=== PATIENT | male | born 1940 | race Caucasian/White ===

== ENCOUNTER 2017-06-06 14:58 | Emergency (ER) | payer MEDICARE, OTHER ==
[2017-06-06 15:23] VITALS: BP 134/91
[2017-06-06] MEDS ORDERED: Gelfoam 12-7 ADSORBABL SPONGE* 1 EA SPONGE TOPICAL ONE (16:03)
--- NOTE | 2017-06-06 16:16 | UC ---
Pushpa Salazar Emily, scribed for Mariya Rodriguez MD on 06/06/17 at 1555 . Laceration HPI - HPI Summary HPI Summary: This patient is a 77 year old M presenting to urgent care with a chief complaint of R index finger laceration that occurred at 0900 this morning. 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 Pt reports he was wearing gloves at the time. Pt does not remember specific injury. Pt states when he took off her gloves, was bleeding. Pt washed the laceration with soap and water. Pt reports a slight stinging pain associated with the laceration. Bleeding not alleviated by ice or previous attempt at gluing the laceration closed. Pt is right-handed. Tdap UTD (2009) Pt is on xarelto. - History Of Current Complaint Chief Complaint: UCUpperExtremity Stated Complaint: FINGER LACERATION Time Seen by Provider: 06/06/17 15:36 Hx Obtained From: Patient Laceration Location: Hand - R pointer finger Mechanism Of Injury: Sharp Trauma Onset/Duration: Sudden Onset, Lasting Hours - Allergies/Home Medications Allergies/Adverse Reactions: Allergies Allergy/AdvReac Type Severity Reaction Status Date / Time No Known Allergies Allergy Verified 01/17/15 13:14 Home Medications: Home Medications Canagliflozin (NF) [Invokana (NF)] 06/06/17 [History] PMH/Surg Hx/FS Hx/Imm Hx Previously Healthy: No Endocrine History: Diabetes Cardiovascular History: Hypertension - Surgical History Surgical History: Yes Surgery Procedure, Year, and Place: gallbladder 5-6 yrs ago,prostate cmc. - Family History Known Family History: Positive: Cardiac Disease - Social History Occupation: Retired Lives: With Family Alcohol Use: None Substance Use Type: None Smoking Status (MU): Former Smoker - Immunization History Most Recent Influenza Vaccination: July 2014 Most Recent Tetanus Shot: unknown Most Recent Pneumonia Vaccination: within 5 years Review of Systems Constitutional: Other - Negative fever Skin: Other - Laceration on R index finger Motor: Other - no weakness All Other Systems Reviewed And Are Negative: Yes Physical Exam Triage Information Reviewed: Yes Appearance: Well-Appearing, No Pain Distress, Well-Nourished Vital Signs: Initial Vital Signs Temp 97.8 F 06/06/17 15:17 Pulse 90 06/06/17 15:17 Resp 18 06/06/17 15:17 BP 134/91 10/02/17 15:17 Vital Signs Reviewed: Yes ENT: Positive: Hearing grossly normal Neck: Positive: Supple, Nontender Respiratory: Positive: No respiratory distress Cardiovascular: Positive: Other: - CBT < 2 sec 2+ radial Musculoskeletal Exam: Normal Musculoskeletal: Positive: Other: - + flex/ext MCP, PIP, DIP Neurological Exam: Normal Psychological Exam: Normal Psychological: Positive: Normal Response To Family Skin: Positive: Other - Pt with small <2mm skin avulsion over distal finger, index, dorsum no nail involved Pt with small ooze from wound Laceration Course/Dx - Course/Dx Course Of Treatment: Pt with small skin avulsion with ooze from distal index finger. Wound irrigated with sterile saline and gauze. Mild scrubbing. Wound dried with gauze and covered with skin adhesive dermabond. Following this, covered with gelfoam, 2x2 and tube gauze. No further bleeding. Pt tolerate well. Reviewed with pt wound care. Pt comfortable and in agreement with plan - Differential Dx - Laceration/Wound Provider Diagnoses: skin avulsion on anticoagulants Discharge - Discharge Plan Condition: Stable Disposition: HOME Patient Education Materials: Acute Wound Care (ED) Referrals: Tawanda Gómez MD [Primary Care Provider] - Additional Instructions: - Keep your wound clean and dry for 24 hours. - Then, moisten bandage that is under tape against your skin before removing - If you have any additional concerns, call your doctor or return to the urgent care center The documentation as recorded by the Pushpa sheets Emily accurately reflects the service I personally performed and the decisions made by me, Mariya Rodriguez MD.
== END 2017-06-06 16:24 | disposition home or self-care (01) ==
LOC: UCEAST 14:58
DX: S61.210A Laceration without foreign body of right index finger without damage to nail, initial encounter (principal); W26.0XXA Contact with knife, initial encounter; Y92.9 Unspecified place or not applicable; E11.9 Type 2 diabetes mellitus without complications; I10 Essential (primary) hypertension; Z87.891 Personal history of nicotine dependence
CPT/HCPCS: 99212; A9270-GY; G0463

== ENCOUNTER 2017-08-04 11:16 | Emergency (ER) | payer MEDICARE, BC ==
[2017-08-04 13:27] LABS: Hematocrit 47 % (42-52); Hemoglobin 15.8 g/dl (14.0-18.0); Mean Corpuscular HGB Conc 33 g/dl (31-36); Mean Corpuscular Hemoglobin 28 pg (27-31); Mean Corpuscular Volume 85 fL (80-94); Mean Platelet Volume 8 um3 (7.4-10.4); Red Blood Count 5.56 10^6/ul (4.0-5.4); Red Cell Distribution Width 13 % (10.5-15); White Blood Count 8.1 10^3/ul (3.5-10.8)
--- NOTE | 2017-08-04 13:31 | RAD ---
Indication: Occipital headaches, visual changes. CT of the brain was performed without IV contrast. Ventricular structures are midline. No midline shift is noted. The extra-axial spaces are unremarkable. There is no evidence of intracranial mass or hemorrhage. No other high or low density lesions are identified. Mastoid air cells and paranasal sinuses are otherwise unremarkable. IMPRESSION: No intracranial mass or hemorrhage is noted.
[2017-08-04 13:39] LABS: Albumin 4.1 g/dL (3.2-5.2); C Reactive Protein 2.01 mg/L (< 5.00); Calcium 9.8 mg/dL (8.6-10.3); EGFR African American 132.6 (>60); EGFR Non-African American 103.1 (>60); Potassium 4.3 mmol/L (3.5-5.0); Total Bilirubin 1.6 mg/dL (0.2-1.0); Total Protein 7.1 g/dL (6.4-8.9)
[2017-08-04 13:40] LABS: Troponin I 0.01 ng/mL (<0.04)
[2017-08-04 13:52] LABS: TSH (Thyroid Stimulating Horm) 2.49 mcIU/mL (0.34-5.60)
[2017-08-04] MEDS ORDERED: Iodixanol* (CONTRAST) 320 MG/ML 100 ML SDV IV ONE (14:37)
[2017-08-04 14:52] LABS: Erythrocyte Sed Rate 16 mm/Hr (0-40)
--- NOTE | 2017-08-04 16:10 | RAD ---
INDICATION: Visual changes COMPARISON: Carotid sonogram September 25, 2014 TECHNIQUE: Axial source images were acquired with coronal and sagittal reconstructions. CT angiographic technique was utilized with injection of 80 mL Visipaque 320. FINDINGS: Aortic arch: There are mild atherosclerotic changes of the arch and the great vessels arising from the arch. Right carotid: The common carotid artery is widely patent. There is extensive calcific plaque formation involving the bifurcation limiting evaluation of the origin of the internal carotid artery. There may be a high-grade stenosis and therefore carotid ultrasonography is recommended to assess velocities/flow dynamics and to compare with the earlier carotid sonogram. The remaining extracranial portions of the internal carotid artery, carotid artery at the skull base, carotid siphon, and carotid termination appear normal. Left carotid:The common carotid artery is widely patent. There is extensive ossific plaque formation at the bifurcation with a 50% diameter stenosis. The remaining extracranial portions of the internal carotid artery, carotid artery at the skull base, carotid siphon, and carotid termination appear widely patent. Right middle and anterior cerebral arteries: There are no CT angiographic abnormalities of the middle or anterior cerebral arteries. Left middle and anterior cerebral arteries: There are no CT angiographic abnormalities of the middle or anterior cerebral arteries Right vertebral: The CT angiographic appearance of the vertebral artery is widely patent with mild calcific plaque formation near its origin. Left vertebral: The CT angiographic appearance of the vertebral artery is widely patent with mild calcific plaque formation appears origin. Basilar artery: The basilar artery and basilar tip appear normal. Posterior cerebral arteries: The distal distribution of the right and left posterior cerebral arteries is normal. [place]: The CT angiographic appearance of the [place] is normal. Source images show no evidence of mass or adenopathy within the neck. There are no focal brain parenchymal abnormalities or abnormal areas of enhancement. IMPRESSION: 1. EXTENSIVE RIGHT-SIDED CALCIFIC PLAQUE FORMATION AT THE BIFURCATION LIMITING EVALUATION. SUGGEST FOLLOW-UP CAROTID ULTRASONOGRAPHY. 2. EXTENSIVE CALCIFIC PLAQUE FORMATION AT THE LEFT CAROTID BIFURCATION WITH A 50% DIAMETER STENOSIS. CPT II Codes: 3100F PQRS
--- NOTE | 2017-08-04 17:09 | ED ---
Isac Salazar Benjamin, scribed for Jesus Baca MD on 08/04/17 at 1216 . Throat Pain/Nasal Congestion - HPI Summary HPI Summary: 77yo male c/o having part of his vision covered intermittently with flash spot that he describes as aura for 4 days. The flash spot changes moves to different parts of the visual field and he reports them in both eyes. Each episode lasts about 5-15 seconds. Pt denies any weakness or numbness. Pt has back and neck problems, and the last 4 days, pt has been seeing a doctor for his back and neck issues. Pt also reports discomfort in bilateral jaw and ROLDAN in the past few days and his cervical lymph nodes are bothering him. - History of Current Complaint Chief Complaint: EDNeurologicalDeficit Time Seen by Provider: 08/04/17 11:53 Hx Obtained From: Patient Onset/Duration: Gradual Onset, Lasting Days - 4 days, Still Present Severity: Mild Associated Signs And Symptoms: Positive: Negative - Allergies/Home Medications Allergies/Adverse Reactions: Allergies Allergy/AdvReac Type Severity Reaction Status Date / Time No Known Allergies Allergy Verified 08/04/17 11:19 Home Medications: Home Medications Canagliflozin (NF) [Invokana (NF)] 100 mg PO QAM 08/04/17 [History Confirmed ] Clopidogrel TAB* [Plavix TAB*] 75 mg PO QAM 08/04/17 [History Confirmed 08/04/17 ] Coenzyme Q10 (Ubidecarenone) [Co-Enzyme Q10] 100 mg PO DAILY 08/04/17 [History Confirmed 08/04/17] Epleronone (NF) [Inspra (NF)] 25 mg PO QAM 08/04/17 [History Confirmed 08/04/17] Latanoprost 0.005%* [Xalatan 0.005%*] 1 drop BOTH EYES BEDTIME 08/04/17 [ History Confirmed 08/04/17] Losartan TAB* [Cozaar TAB*] 12.5 mg PO QPM 08/04/17 [History Confirmed 08/04/17] Nystatin (Topical) [Nyamyc] 100,000 unit TOPICAL DAILY PRN 08/04/17 [History Confirmed 08/04/17] Rosuvastatin (NF) [Crestor (NF)] 5 mg PO DAILY 08/04/17 [History Confirmed 08/04] Timolol Maleate (Ophth) [Istalol] 0.5 % LEFT EYE QAM 08/04/17 [History Confirmed 08/04/17] Verapamil SR TAB* [Calan Sr TAB*] 240 mg PO QAM 08/04/17 [History Confirmed ] glipiZIDE TAB.XL* [Glucotrol XL*] 5 mg PO DAILY 08/04/17 [History Confirmed ] metFORMIN* [Glucophage 500 MG TAB *] 1,000 mg PO BID 08/04/17 [History Confirmed 08/04/17] PMH/Surg Hx/FS Hx/Imm Hx Endocrine/Hematology History: Reports: Hx Diabetes Cardiovascular History: Reports: Hx Hypercholesterolemia, Hx Hypertension Denies: Hx Pacemaker/ICD GI History: Reports: Hx Gastroesophageal Reflux Disease History: Reports: Hx Benign Prostatic Hyperplasia Musculoskeletal History: Reports: Hx Arthritis Sensory History: Reports: Hx Hearing Aid - dosen't wear them Denies: Hx Contacts or Glasses Opthamlomology History: Denies: Hx Contacts or Glasses Psychiatric History: Denies: Hx Panic Disorder, Hx Substance Abuse - Surgical History Surgery Procedure, Year, and Place: gallbladder 5-6 yrs ago,prostate cmc. - Immunization History Date of Tetanus Vaccine: unknown Infectious Disease History: No Infectious Disease History: Denies: Traveled Outside the [place] in Last 30 Days - Family History Known Family History: Positive: Cardiac Disease, Other - brain tumors - Social History Alcohol Use: None Substance Use Type: Reports: None Smoking Status (MU): Former Smoker Review of Systems Constitutional: Negative Positive: Other - visual changes ENT: Negative Cardiovascular: Negative Respiratory: Negative Gastrointestinal: Negative Genitourinary: Negative Positive: Arthralgia - neck and back pain; bilateral jaw discomfort and soreness Skin: Negative Positive: Headache Psychological: Normal All Other Systems Reviewed And Are Negative: Yes Physical Exam Triage Information Reviewed: Yes Vital Signs On Initial Exam: Initial Vitals Temp Pulse Resp BP Pulse Ox 96.7 F 84 16 137/91 97 08/04/17 11:21 08/04/17 11:21 08/04/17 11:21 08/04/17 11:21 08/04/17 11:21 Vital Signs Reviewed: Yes - [place] Coma Scale Coma Scale Total: 15 Diagnostics - Vital Signs Vital Signs Temp Pulse Resp BP Pulse Ox 08/04/17 12:07 76 21 97 08/04/17 12:06 169/62 08/04/17 11:21 96.7 F 84 16 137/91 97 - Laboratory Lab Results: Lab Results 08/04/17 08/04/17 08/04/17 Range/Units 12:22 12:22 12:22 WBC 8.1 (3.5-10.8) 10^3/ul RBC 5.56 H (4.0-5.4) 10^6/ul Hgb 15.8 (14.0-18.0) g/dl Hct 47 (42-52) % MCV 85 (80-94) fL MCH 28 (27-31) pg MCHC 33 (31-36) g/dl RDW 13 (10.5-15) % Plt Count 330 (150-450) 10^3/ul MPV 8 (7.4-10.4) um3 Neut % (Auto) 69.2 (38-83) % Lymph % (Auto) 20.5 L (25-47) % [place] % (Auto) 8.5 (1-9) % Eos % (Auto) 0.8 (0-6) % Baso % (Auto) 1.0 (0-2) % Absolute Neuts (auto) 5.6 (1.5-7.7) 10^3/ul Absolute Lymphs (auto) 1.7 (1.0-4.8) 10^3/ul Absolute Monos (auto) 0.7 (0-0.8) 10^3/ul Absolute Eos (auto) 0.1 (0-0.6) 10^3/ul Absolute Basos (auto) 0.1 (0-0.2) 10^3/ul Absolute Nucleated RBC 0.01 10^3/ul Nucleated RBC % 0.2 ESR 16 (0-40) mm/Hr INR (Anticoag Therapy) 1.11 (0.89-1.11) APTT 33.7 (26.0-36.3) seconds Sodium 135 (133-145) mmol/L Potassium 4.3 (3.5-5.0) mmol/L Chloride 101 (101-111) mmol/L Carbon Dioxide 25 (22-32) mmol/L Anion Gap 9 (2-11) mmol/L BUN 20 (6-24) mg/dL Creatinine 0.74 (0.67-1.17) mg/dL Est GFR ( Amer) 132.6 (>60) Est GFR (Non-Af Amer) 103.1 (>60) BUN/Creatinine Ratio 27.0 H (8-20) Glucose 146 H (70-100) mg/dL Calcium 9.8 (8.6-10.3) mg/dL Magnesium 2.0 (1.9-2.7) mg/dL Total Bilirubin 1.60 H (0.2-1.0) mg/dL AST 21 (13-39) U/L ALT 23 (7-52) U/L Alkaline Phosphatase 69 (34-104) U/L Troponin I 0.01 (<0.04) ng/mL C-Reactive Protein 2.01 (< 5.00) mg/L Total Protein 7.1 (6.4-8.9) g/dL Albumin 4.1 (3.2-5.2) g/dL Globulin 3.0 (2-4) g/dL Albumin/Globulin Ratio 1.4 (1-3) TSH 2.49 (0.34-5.60) mcIU/mL Result Diagrams: 08/04/17 12:22 08/04/17 12:22 Lab Statement: Any lab studies that have been ordered have been reviewed, and results considered in the medical decision making process. - CT CT Brain CT Interpretation: No Acute Changes CT Interpretation Completed By: Radiologist - ED physician has reviewed this radiology report and agrees. CTA head/neck CT Interpretation: Positive (See Comments) - IMPRESSION: 1. EXTENSIVE RIGHT- SIDED CALCIFIC PLAQUE FORMATION AT THE BIFURCATION LIMITING EVALUATION. SUGGEST FOLLOW-UP CAROTID ULTRASONOGRAPHY. 2. EXTENSIVE CALCIFIC PLAQUE FORMATION AT THE LEFT CAROTID BIFURCATION WITH A 50% DIAMETER STENOSIS. CT Interpretation Completed By: Radiologist - ED physician has reviewed this radiology report and agrees. - EKG 1222. Cardiac Rate: NL EKG Rhythm: Sinus Rhythm - 73bpm ST Segment: Normal Ectopy: None Re-Evaluation - Re-Evaluation First Eval Re-Evaluation Time: 14:18 Comment: Reviewed pt's CT result, introduced Dr. Dickinson to the pt. Dr. Dickinson is in the room to evaluate the pt. EENT Course/Dx - Course Course Of Treatment: BP noted and advised to follow up with PCP. Allergies noted. Medications reviewed. Consulted Dr. Dickinson (Neuro) at [address] DICKINSON SAW PATIWENT IN THE ED. SEE HIS CONSULTATION. DISCUSSED RESULTS WITH PATIENT AND HIS . THE PLAN IS TO F/U WITH PMD, OPHTHALMOLOGY AND NEUROLOGY. RETURN IF WORSE. NO CRITICAL CARE TIME. - Diagnoses Provider Diagnoses: Vision changes, Ocular migraine, Headache Discharge - Discharge Plan Condition: Stable Disposition: HOME Patient Education Materials: Blurred Vision (ED), Ocular Migraine (ED), Acute Headache (ED) Referrals: Ramon Dickinson MD [Medical Doctor] - Tawanda Gómez MD [Primary Care Provider] - Additional Instructions: FOLLOW UP WITH YOUR PRIMARY CARE DOCTOR AND NEUROLOGY. ASK YOUR PRIMARY CARE DOCTOR TO HELP ARRANGE CAROTID ULTRASONOGRAPHY. CALL NEUROLOGY, DR DICKINSON, FOR FOLLOW UP IN APPROXIMATELY 2 WEEKS. CALL YOUR SPRAY RIG OPERATOR FOR FOLLOW UP. RETURN TO THE EMERGENCY DEPARTMENT FOR ANY WORSENING OF YOUR CONDITION; WEAKNESS , NUMBNESS, VISION CHANGES, PAIN, YOU FEEL ILL OR QUESTIONS OR CONCERNS. The documentation as recorded by the Isac sheets Benjamin accurately reflects the service I personally performed and the decisions made by me, Jesus Baca MD.
[2017-08-04 17:36] VITALS: BP 166/66
--- NOTE | 2017-08-04 20:36 | CONS ---
Cc: Tawanda Gómez MD * CONSULTATION REPORT: DATE OF CONSULT: 08/04/17 PATIENT OF: Dr. Baca. HISTORY OF PRESENT ILLNESS: This is a 77-year-old right-handed man I was asked to see for unusual visual symptoms, his history may go back, chronically he has had migraine headaches since his early 20s. They were severe, throbbing headaches associated with nausea and visual disturbance similar to what he is currently experiencing. His migraine headaches had been gone for 2 or 3 years' time, but since then he has continued to have a couple of times a year visual symptoms similar to what he had with his migraine but without headache. In the past 5 days or so, he has had similar visual symptoms. He describes it as a hard to describe, bright shiny light up to the right and left of his visual field, but not obscuring central vision and only obscuring portion of his peripheral field. He does not describe it as a field cut and it is hard for him to describe. There is no clear scintillations, but he says it is exactly the same as he had when he had his migraines. These last typically minutes and go away. He has had some head pain in the past few days that consists of occasional moderately severe right-sided neck pain that goes frontally. It is not throbbing, it does not feel like his migraines. His blood pressure in the past 3 or 4 days has been mildly elevated compared to what it usually runs, it is in the 130s to 150s over 70s. He is diabetic, but he has not been hypoglycemic or hyperglycemic as tested in the past several days' time. He has not had any history of stroke. He has no numbness or weakness or speech problems with this and no changes in his walking. PAST MEDICAL HISTORY: Include his: 1. Type 2 diabetes. 2. Hypertension. 3. Atrial fibrillation. 4. He also has hyperlipidemia. 5. Migraine. 6. He has had coronary artery disease as well. PAST SURGICAL HISTORY: He has also had a cholecystectomy and a TURP. MEDICATIONS: Include: 1. Glipizide 5 mg a day. 2. Plavix 75 mg a day. 3. Inspira 25 mg a day. 4. Finasteride 5 mg a day. 5. Hydrochlorothiazide 12.5 three times a week. 6. Invokana 100 mg daily. 7. Eye drops. 8. Losartan 25 mg half a pill a day. 9. Metformin 500 mg pills twice a day. 10. Metoprolol 25 twice a day. 11. Rosuvastatin 5 mg a day. 12. Verapamil 240 a day. 13. Xarelto 20 mg at bedtime. 14. He has had 2 drug-eluting stents placed at [facility] in 2013. 15. He is on nitro as needed. FAMILY HISTORY: Noncontributory. SOCIAL HISTORY: He quit smoking 25 years ago with a 20-year history and he is a former significant drinker, but nothing for almost 20 years' time. No recreational drugs. REVIEW OF SYSTEMS: Negative in all 14 spheres other than the HPI. PHYSICAL EXAMINATION: On exam, temperature is 96.7, pulse 66, respirations 17, blood pressure 192/65. He is alert and oriented with normal speech and comprehension. Cranial nerves II through XII are intact. Fundi showed sharp discs. He has no visual field deficits or visual symptoms at this time. Motor exam revealed normal tone, strength, coordination in aibren-[id number]. His sensation is intact to light touch. Reflexes were 1 and equal, downgoing toes. Neck: Supple. Chest: Clear. Cardiovascular: Regular rate and rhythm. Abdomen: Soft with positive bowel sounds. Of note, he had no orthodox tenderness on exam. DIAGNOSTIC STUDIES/LAB DATA: I reviewed his CT scan, which was normal. His EKG , he was in sinus rhythm with a left anterior fascicular block at this point. Labs include normal CBC. Sed rate is pending. INR 1.11. PTT 33.7. Normal CMP other than glucose 146, total bili of 1.6, TSH 2.49, C-reactive protein was 2. IMPRESSION: Discussed this case with Dr. Baca that his visual symptoms sounded migrainous, and then the history I got from him of a significant migraine with identical visual symptoms makes me think that this is migrainous phenomena. It could be just that he has had such migrainous phenomena without headache in the past few years' time, this may be a recurrence without any particular reason. However, a few reasons come to mind; he has somewhat elevated blood pressure in the past several days' time and the elevated blood pressure could drive something like this. It could also be that he was stressed and therefore his blood pressure was elevated and that is also causing migraines. Another possibility is he has some neck pain and neck pain can trigger migraines in a predisposed person. Finally, he has had carotid disease in the past. It is possible if he has more significant stenosis, it could be possibly triggering such symptoms, so we are going to get a CTA on him. I discussed with Dr. Baca to make sure he is not becoming hypoglycemic, which could trigger migraine symptoms in a susceptible individual. Thank you for sharing his case. [id number]/[facility] #: [id number] [place]
== END 2017-08-04 17:35 | disposition home or self-care (01) ==
LOC: ED 11:16
DX: G43.909 Migraine, unspecified, not intractable, without status migrainosus (principal); M54.9 Dorsalgia, unspecified; R51 Headache; M54.2 Cervicalgia; Z87.891 Personal history of nicotine dependence; H53.149 Visual discomfort, unspecified
CPT/HCPCS: 36415; 70450; 70496; 70498; 80053; 83735; 84443; 84484; 85025; 85610; 85652; 85730; 86140; 93005; 99283; Q9967

== ENCOUNTER 2017-10-17 13:42 | Emergency (ER) | payer MEDICARE, BC ==
--- NOTE | 2017-10-17 17:40 | ED ---
Lower Extremity - HPI Summary HPI Summary: 77 year old male presents to ED with complaints of bilateral "funny feeling" in his feet that began 4-5 days ago. States he only feels the "tingling/burning" when he is sitting or laying, not when he is up walking around and not paying attention to it. States it is the worst in his toes. Denies any swelling, discoloration, erythema, warmth or other symptoms. States he has type II diabetes for the past 2 years that is not the always very well controlled. Patient denies any other complaints and no pain. PMHx significant for DM, HTN, Aortic stenosis, and ACS with 2 stents. Has not tried any medication. No prolonged bed rest, long distance travel. No recent trauma or injury. - History of Current Complaint Chief Complaint: EDDiabeticProb Stated Complaint: LEG PAIN Time Seen by Provider: 10/17/17 16:58 Hx Obtained From: Patient Mechanism Of Injury: Other - none Onset of Pain: Days Onset/Duration: Still Present Severity Currently: None Pain Intensity: 0 Pain Scale Used: 0-10 Numeric Timing: Intermittent Location: Is Discrete @ - bilateral feet/toes Associated Signs And Symptoms: Positive: Negative Aggravating Factor(s): Other - when sitting still rather than walking Alleviating Factor(s): Other - walking - Allergies/Home Medications Allergies/Adverse Reactions: Allergies Allergy/AdvReac Type Severity Reaction Status Date / Time No Known Allergies Allergy Verified 08/04/17 11:19 PMH/Surg Hx/FS Hx/Imm Hx Endocrine/Hematology History: Reports: Hx Diabetes Cardiovascular History: Reports: Hx Angina, Hx Coronary Artery Disease - stent, Hx Hypercholesterolemia, Hx Hypertension Denies: Hx Pacemaker/ICD, Hx Valvular Heart Disease Respiratory History: Denies: Hx Asthma, Hx Chronic Obstructive Pulmonary Disease (COPD) GI History: Reports: Hx Gastroesophageal Reflux Disease History: Reports: Hx Benign Prostatic Hyperplasia Musculoskeletal History: Reports: Hx Arthritis Sensory History: Reports: Hx Hearing Aid - dosen't wear them Denies: Hx Contacts or Glasses Opthamlomology History: Denies: Hx Contacts or Glasses Psychiatric History: Denies: Hx Panic Disorder, Hx Substance Abuse - Surgical History Surgery Procedure, Year, and Place: gallbladder 5-6 yrs ago,prostate [facility]. - Immunization History Date of Tetanus Vaccine: unknown Infectious Disease History: No Infectious Disease History: Denies: Traveled Outside the [place] in Last 30 Days - Family History Known Family History: Positive: Cardiac Disease, Other - brain tumors - Social History Alcohol Use: None Substance Use Type: Reports: None Smoking Status (MU): Unknown if Ever Smoked Type: Cigarettes Have You Smoked in the Last Year: No Review of Systems Constitutional: Negative Cardiovascular: Negative Respiratory: Negative Positive: Paresthesia - bilateral toes/feet All Other Systems Reviewed And Are Negative: Yes Physical Exam Triage Information Reviewed: Yes Vital Signs On Initial Exam: Initial Vitals Temp Pulse Resp BP Pulse Ox 96.9 F 85 16 156/50 95 10/17/17 13:45 10/17/17 13:45 10/17/17 13:45 10/17/17 13:45 10/17/17 13:45 Vital Signs Reviewed: Yes Appearance: Positive: Well-Appearing, No Pain Distress, Well-Nourished Skin: Positive: Warm, Skin Color Reflects Adequate Perfusion, Dry, Other - normal lower extremity skin, not shiny. Negative: Cyanosis @, Erythema @ Head/Face: Positive: Normal Head/Face Inspection Respiratory/Lung Sounds: Positive: Clear to Auscultation, Breath Sounds Present. Negative: Rales, Rhonchi, Wheezes Cardiovascular: Positive: Normal, RRR, Pulses are Symmetrical in both Upper and Lower Extremities - diminished bilateral pedal pulses 1+, Murmur - grade III systolic. Negative: Rub Musculoskeletal: Positive: Normal, Strength/ROM Intact. Negative: Limited @, Interruption @, Pain @ Neurological: Positive: Normal, Sensory/Motor Intact - diminshed sensation bilateral dorsal side of feet when tested sharp/dull, Alert, Oriented to Person Place, Time, CN Intact II-III, Reflexes Intact, NV Bundle Intact Distally - diminshed dorsal feet bilateral as noted above Diagnostics - Vital Signs Vital Signs Temp Pulse Resp BP Pulse Ox 10/17/17 15:00 97.6 F 73 16 144/59 96 10/17/17 13:45 96.9 F 85 16 156/50 95 - Laboratory Lab Results: Lab Results 10/17/17 Range/Units 16:42 POC Glucose (mg/dL) 95 (70-100) mg/dL Lab Statement: Any lab studies that have been ordered have been reviewed, and results considered in the medical decision making process. Lower Extremity Course/Dx - Course Course Of Treatment: due to patients complaints, history and physical exam findings appears to be suffering from diabetic neuropathy. no concern for artertial compromise at this time. encouraged follow up with pcp and biztalk developer. is in no pain. strict glucose control. today's was 95. aware of worsening signs and symptoms to watch out for adn return if occur. no other concerns at this time. did not start on medication due to minimal symptoms and beginning stages without being able to follow up with patient. discuss outpatient with pcp and biztalk developer. patient agrees and understands plan. - Diagnoses Differential Diagnosis/HQI/PQRI: Positive: Other - PAD, diabetic neuropathy, paresthesia Provider Diagnoses: Diabetic neuropathy, Paresthesia of both feet Discharge - Discharge Plan Condition: Stable Disposition: HOME Patient Education Materials: Diabetic Peripheral Neuropathy (ED), Paresthesia ( ED) Referrals: Tawanda Gómez MD [Primary Care Provider] - Vandana Orourke DPM [Doctor of Podiatric Medicine] - Randy Henderson DPM [Doctor of Podiatric Medicine] - Additional Instructions: Please follow up with your primary care provider for further evaluation and treatment. Make an appointment to see a biztalk developer for your symptoms. Optimal glucose control. Recommend elevation rather than sitting and having legs hang over edge of chair as this may worsen symptoms. Any new or worsening symptoms please seek medical attention promptly, as we discussed (increased pain, swelling, redness, warmth).
[2017-10-17 18:01] VITALS: BP 138/52
== END 2017-10-17 18:00 | disposition home or self-care (01) ==
LOC: ED 13:42
DX: E11.40 Type 2 diabetes mellitus with diabetic neuropathy, unspecified (principal)
CPT/HCPCS: 99282

== ENCOUNTER 2018-04-28 02:19 | Emergency (ER) | payer MEDICARE, BC ==
[2018-04-28] MEDS ORDERED: NS 0.9% 1000 ML* 1,000 ML IV ONE (02:25)
--- OUTSIDE RECORDS SUMMARY | 2018-04-28 02:40 | XMS REPORT ---
:1940 External Reference #:[id number] [facility] [employer] Address [address] [place] [address] Phone [phone] Care Team Providers Name Role Phone Tawanda Gómez M.D. Primary Care Physician Unavailable Payers Type Date Identification Numbers Payment Provider Subscriber Medicare Primary Policy Number: [id number] Medicare - [employer] PayID: [id number] [address] [place] [address] Commercial Policy Number: [id number] [place] [employer] PayID: [id number] [address] [place] [address] Problems Date Description Provider Status Onset: Essential hypertension Active Onset: 03/19/2015 Type 2 diabetes mellitus Meena Brock O.D. Active Note: s Onset: Arthritis Active Onset: Large prostate Active Onset: 03/19/2015 Primary open angle glaucoma Meena Brock O.D. Active Onset: 03/19/2015 Nuclear senile cataract Meena Brock O.D. Active Onset: 03/19/2015 Mild / Early Stage Glaucoma Meena Brock O.D. Active Onset: 03/19/2015 High Risk Open Angle Glaucoma Meena Brock O.D. Active Onset: 09/19/2015 Combined form of senile cataract Meena Brock O.D. Active Onset: 02/11/2016 Pseudoexfoliation glaucoma Meena Brock O.D. 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 /2017 in both [place], eyes O.D. every morning Latanoprost 09/19 Active Solution 0.005% 1 drop H40.11x1 Meena Szymanski. /2015 both [place], eyes O.D. every night Clopidogrel Bisulfate Active Tablets 75mg Gaby, MD Jono Glipizide ER Active Tablets 5mg take 1 Unknown /0000 ER 24HR tablet once daily Crestor Active Tablets 10mg Gaby, MD Jono Finasteride Active Tablets 5mg take 1 Unknown 0000 tablet by mouth once daily Metformin HCL ER Active Tablets 500mg Shallish, /0000 ER 24HR Tawanda M.D. Metoprolol Succinate Active Tablets 25mg Unknown ER /0000 ER 24HR Verapamil HCL ER Active Tablets 240mg Shallish, /0000 ER Tawanda M.D. Xarelto Active Tablets 20mg Gaby, MD Jono Nitrostat Active Tablets 0.4mg Shallish, /0000 Sub Tawanda M.D. Coq-10 Active Capsules 50mg Unknown /0000 Hydrochlorothiazide Active Tablets 25mg Unknown /0000 Eplerenone Active Tablets 25mg take 1 Unknown /0000 tablet by mouth once daily Losartan Potassium Active Tablets 25mg Unknown /0000 Nyamyc Active Powder [id number] Shallish, /0000 t/GM Tawanda M.D. Lorazepam Active Tablets 0.5mg Shallish, /0000 Tawanda M.D. Gabapentin 00/00 Active Capsules 100mg take 1 Unknown /0000 capsule by mouth four times a day Vitamin B12 Active Tablets 100mcg Unknown /0000 Vitamin D3 Active Capsules 2000Unit Unknown /0000 Timolol Maleate 02/17 Hx Solution 0.5% 10ml One drop Meena J. left eye [place], - twice O.D. 02/22 per day Istalol 02/16 Hx Solution 0.5% 5ml one drop H40.1131 Meena J. in Left [place], - Eye O.D. 02/17 morning Latanoprost 03/18 Hx Solution 0.005% 1 drop Menea J. left eye [place], - every O.D. 10/12 Istalol Hx Solution 0.5% 15ml one drop Meena J. in left [place], - eye O.D. 10/30 morning Results Description No Information Procedures Date CPT Code Description Status 09/26/2017 55462 Est Patient Intermediate Exam Completed 02/16/2017 46620 Scanning Computerized Ophthalmic Diagnostic Imag Completed Posterior Seg On 02/16/2017 05982 Visual Field Exam Extended Completed 02/16/2017 82287 Est Patient Comprehensive Exam Completed 08/13/2016 84334 Est Patient Intermediate Exam Completed 02/11/2016 69950 Scanning Computerized Ophthalmic Diagnostic Imag Completed Posterior Seg On 02/11/2016 22520 Est Patient Comprehensive Exam Completed 10/13/2015 55302 Visual Field Exam Extended Completed 10/13/2015 60164 Est Patient Intermediate Exam Completed 09/19/2015 97367 Est Patient Intermediate Exam Completed 03/19/2015 50251 Est Patient Comprehensive Exam Completed 03/19/2015 80694 Determination Of Refractive State Completed 03/19/2015 05380 Scanning Computerized Ophthalmic Diagnostic Imag Completed Posterior Seg On 09/18/2014 50436 Visual Field Exam Extended Completed 04/15/2014 04360 Est Patient Comprehensive Exam Completed 12/13/2013 38609 Scanning Computerized Ophthalmic Diagnostic Imag Completed Posterior Seg On 12/13/2013 66802 Est Patient Intermediate Exam Completed 04/16/2013 68833 Visual Field Exam Extended Completed 04/16/2013 42675 Est Patient Comprehensive Exam Completed 08/21/2012 03094 Est Patient Intermediate Exam Completed 03/29/2012 25802 Est Patient Intermediate Exam Completed 03/29/2012 88968 Visual Field Exam Extended Completed 12/29/2011 00471 Scanning Computerized Ophthalmic Diagnostic Imag Completed Posterior Seg On 12/29/2011 83543 Est Patient Comprehensive Exam Completed 06/21/2011 05522 Est Patient Comprehensive Exam Completed 12/18/2010 06011 Scanning Computerized Ophthalmic Diagnostic Imag Completed Posterior Seg On 12/18/2010 90728 Visual Field Exam Extended Completed 12/18/2010 78684 Est Patient Comprehensive Exam Completed 08/17/2010 09060 Determination Of Refractive State Completed 08/17/2010 28994 Est Patient Intermediate Exam Completed 12/15/2009 65818 Visual Field Exam Extended Completed 12/12/2009 11415 Scanning Laser W/Interp And Report Completed 12/12/2009 88011 Est Patient Comprehensive Exam Completed 12/12/2009 94379 Pachymetry Completed 10/16/2008 66662 Determination Of Refractive State Completed 10/16/2008 67161 Est Patient Comprehensive Exam Completed 02/24/2007 45140 Determination Of Refractive State Completed 02/24/2007 23275 Est Patient Comprehensive Exam Completed 09/13/2005 04380 Determination Of Refractive State Completed 09/13/2005 49090 New Patient Comprehensive Exam Completed Encounters Type Date Location Provider CPT E/M Dx Office Visit 10/31/2017 Timothy Borges MD, Meena Brock, 22037 H40.1131 10:10a pc O.D. Office Visit 03/24/2017 Timothy Borges MD, Meena Brock, 77377 H40.1131 9:45a pc O.D. H40.1411 H25.813 E11.9 Office Visit 09/18/2014 10:10a Timothy Borges MD, Meena Brock, 08090 365.01 pc O.D. Office Visit 09/14/2013 2:30p Timothy Borges MD, Meena Brock, 24495 365.11 pc O.D. 365.71 Office Visit 12/15/2012 9:00a Timothy Borges MD, Meena Brock, 48357 365.11 pc O.D. 365.71 Office Visit 09/04/2012 2:10p Timothy Borges MD, Meena Brock, 87136 365.71 pc O.D. Office Visit 04/17/2010 8:40a Timothy Borges MD, Meena Brock, 02255 365.04 pc O.D. Office Visit 01/14/2010 9:00a Timothy Borges MD, Meena Brock, 36950 365.04 pc O.D. Office Visit 12/15/2009 8:50a Timothy Borges MD, Meena Brock, 39598 365.01 pc O.D. Plan of Care 03/31/2018 - Meena Brock O.D.H40.1131 Primary open-angle glaucoma, bilateral, mild stageComments:Smoking can increase the risk of developing or worsening any eye related disease, as well as affect your overall health. If you are a smoker, we strongly recommend that you quit.If you are not a smoker, we strongly recommend that you do not start. Your glaucoma is stable at this time.Your eye pressure is within an acceptable range, and your testing does not show any Glaucoma related changes at thistime. Please continue your treatment.Follow up:6 Month Follow Up IOP Check At your next visit, we are not planning to dilate your eyes. However, if you have any changes in your vision or new symptoms, there are certain situations that require us to dilate your eyes. If Dr. Brock requests any additional testing, that may require extra time. If you have any questions before your next appointment, please call our office at .H25.13 Age-related nuclear cataract, bilateralComments: You have been diagnosed with cataracts. If you are happy with your vision as it is now, then we willsee you at your next scheduled appointment. If you feel like your vision is getting worse before your scheduled appointment, please call Maylin Jackson at [phone].E11.9 Type 2 diabetes mellitus without complicationsComments:You have diabetes. I do not detect any changes in both of your retinas from diabetes at this time. Proper control of your diabetes is important for the health of your eyes. Changes in your eyes from diabetes can happen without symptoms, so it is important that you have your eyes examined.
--- OUTSIDE RECORDS SUMMARY | 2018-04-28 02:41 | XMS REPORT ---
:1940 External Reference #:[id number] Author Organization [facility] Address [address] [place] [address] [place] [address] Phone [phone] Care Team Providers Name Role Phone Tawanda Gómez MD Primary Care Physician Unavailable Payers Type Date Identification Numbers Payment Provider Subscriber Medicare Primary Policy Number: [id number] Medicare [employer] PayID: [id number] [address] [place] [address] Medigap Part B Policy Number: [id number] [facility] [employer] Number: [id number] [address] PayID: [id number] [place] [address] Problems Date Description Provider Status Onset: 07/10/2013 Sciatica Jerardo Anderson M.D. Active Onset: 01/17/2018 Low back pain Saida Pak MD Active Onset: 01/17/2018 Lumbosacral spondylosis without Saida Pak MD Active myelopathy Family History Date Family Member(s) Problem(s) Comments Father FM Father of DC at age 86 Mother mother at age 66 during open heart surgery Onset: (2013) Siblings 2 1 brother had 4 stents at age of 70 (still living) age 74 2013. 1 brother alive/.well age 70 2013 Social History Type Date Description Comments Marital Status Lives With Occupation Retired worked for [employer] . exposed to anesthetics for fish and creasote application to house. asbestosis exposure at [place] in 1959's. ETOH Use Denies alcohol use Smoking 08/14/2014 Patient is a former stopped approx s smoker Recreational Drug Use Denies Drug Use Daily Caffeine Consumes on average 2 cups of regular coffee per day Daily Caffeine Ice tea 2 14 oz glasses Exercise Type/Frequency Does not exercise Due to leg numbness Allergies, Adverse Reactions, Alerts Date Description Reaction Status Severity Comments 07/10/2013 NKDA active Medications Medication Date Status Form Strength Qnty SIG Indications Ordering Provider Inspra 05/25 Active Tablets 25mg 90tab 1 by mouth I10 Jono s every day Jorge Griffin M.D. Hydrochlorothiazide 06/19 Active Tablets 25mg 30tab 1/2 by Jono s mouth 2 F. times a Gaby week Jaun Metoprolol 02/17 Active Tablets 25mg 180ta 1 tab by Jono Succinate /2014 ER 24HR bs mouth F. twice a Guicho, Jaun Xarelto 02/17 Active Tablets 20mg 90tab 1 by mouth Jono s every day Jorge Griffin M.D. Crestor 12/25 Active Tablets 10mg 12tab 1/2 tab by Jono s mouth F. daily Jaun Griffin Glipizide 08/14 Active Tablets 5mg 180ta 1 by mouth Jono bs daily Jorge Griffin M.D. Verapamil HCL ER Active Caps ER 240mg 30cap 1 po qd Unknown 24HR s Metformin HCL ER Active Tablets 500mg 90tab 1 tabs by Shallish, ER 24HR s mouth MD Tawanda twice daily Aleve Active Capsules 220mg 60cap 1 by mouth Unknown s twice a day as needed Latanoprost Active Solution 0.005% 1 drop in Unknown / both eyes every at bedtime Nitrostat Active Tablets 0.4mg prn Unknown Sub Finasteride Active Tablets 5mg 1 by mouth Unknown /0000 daily Co Q-10 Active Capsules 100mg 1 by mouth Unknown / every day Clopidogrel Active Tablets 75mg 90tab 1 by mouth Jono Bisulfate / s every day Jorge Griffin M.D. Losartan Potassium Active Tablets 25mg 1 by mouth Unknown / every day Nyamyc Powder Active as needed Unknown / (topical) Istalol Active Solution 0.5% 1 gtt both Unknown /0000 eyes am Gabapentin Active Capsules 100mg 1 po qam, Unknown /0000 1 po a12 noon, 2 po q pm Escitalopram Active Tablets 10mg 1 by mouth Unknown Oxalate every day Lorazepam Active Tablets 0.5mg 1 po q hs Unknown / prn Vitamin B12 Active Tablets 1000mcg 1 by mouth Unknown / ER every day Vitamin D-3 Active Capsules 2000Iu 1 by mouth Unknown every day Vitamin B 12 Active injection Unknown /0000 q month (Done PMD 02/07/2018) Nitroglycerin Active Tablets 0.4mg 1 sl Unknown Sub q5mins x3 as needed for chest pain Proair HFA Active Aerosol 108(90Bas 2 puffs by Unknown / e) mouth mcg/Act every 4 hours as needed (rare use) Co Q 10 Active Capsules 100mg 1 by mouth Unknown every day Inspra 06/19 Hx Tablets 25mg 30tab 1 by mouth I10 s every day F. - user, 06/19 M.D. Metoprolol 12/12 Hx Tablets 25mg 200ta 2 po qam, Jono Succinate ER 24HR bs 1 po qpm F. - (ER 02/16) user, 02/17 M.D. Crestor 09/25 Hx Tablets 5mg 30tab 1 by mouth s every day . - user, 12/25.D. Atorvastatin 09/19 Hx Tablets 10mg 1 by mouth Jono Calcium every day . - user, 09/24.D. Keflex 08/27 Hx Capsules 500mg 20cap 1 by mouth 729.5 s four times F. - a day Mauser, 09/10.D. Metoprolol 08/14 Hx Tablets 25mg 240ta 2 by mouth Jono Succinate ER ER 24HR bs in the in F. - the Mauser, 12/12 morning M.D. and 1 tab in the at night Lisinopril 08/14 Hx Tablets 5mg 100ta 1/2 tab by Jono bs mouth Jorge Griffin, 02/16 M.D. Hydrochlorothiazide 08/14 Hx Tablets 25mg 100ta 08/14/14 Jono bs hold Jorge Griffin, 12/11.D Atorvastatin Hx Tablets 40mg 90tab 1 by mouth Jono Calcium /0000 s every day Jorge Griffin, 09/19.D Lisinopril Hx Tablets 10mg 90tab 2 po qd Shallish, /0000 s MD Tawanda - 08/14 Lumigan Hx Solution 0.01% 3vial 1 gtt left Shallish, /0000 s eye qhs MD Tawanda - 08/26 Hydrochlorothiazide Hx Tablets 25mg 90tab 1 by mouth Jono /0000 s every day Jorge Griffin, 08/14.D Aspirin Hx Tablets 81mg 1 po qd Shallish, /0000 MD Tawanda - 02/17 Multivitamins Hx Capsules 30cap 1 capsule Shallish, /0000 s daily MD Tawanda - 05/24 Hydrocodone/Acetami 00 Hx Tablets 5-325mg 60tab 1-2 po qid Shallish , nophen /0000 s prn pain MD Tawanda - 09/10 Multi Complete Hx Capsules daily Unknown /0000 - 05/29 Invokana Hx Tablets 100mg 1 by mouth Unknown /0000 every day - before 02/14 Vital Signs Date Vital Result Comment 03/29/2018 Height 70 inches 5'10" Weight 180.00 lb W/ Shoes On Heart Rate 76 /min BP Systolic Sitting 130 mmHg Lue Reg Cuff BP Diastolic Sitting 62 mmHg Lue Reg Cuff BMI (Body Mass Index) 25.8 kg/m2 Ejection Fraction >70% ECHO 02/07/18 01/18/2018 Height 70 inches 5'10" Weight 182.00 lb w/shoes Heart Rate 80 /min BP Systolic Sitting 170 mmHg L/A Reg Cuff BP Diastolic Sitting 76 mmHg L/A Reg Cuff BP Systolic Standing 131 mmHg la repeat sitting BP Diastolic Standing 62 mmHg la repeat sitting BMI (Body Mass Index) 26.1 kg/m2 Ejection Fraction 65-70% echo 08/16/2017 01/17/2018 Height 70 inches 5'10" Weight 192.00 lb BP Systolic Sitting 158 mmHg BP Diastolic Sitting 70 mmHg Pain Level 7 BMI (Body Mass Index) 27.5 kg/m2 10/05/2017 Height 70 inches 5'10" Weight 192.00 lb Heart Rate 64 /min BP Systolic Sitting 180 mmHg LA< reg BP Diastolic Sitting 82 mmHg LA< reg BP Systolic Standing 144 mmHg la repeat sitting BP Diastolic Standing 86 mmHg la repeat sitting BMI (Body Mass Index) 27.5 kg/m2 Ejection Fraction 65%-70% echo 08/16/17 08/22/2017 Height 70 inches 5'10" Weight 194.00 lb Heart Rate 76 /min BP Systolic Sitting 140 mmHg BP Diastolic Sitting 60 mmHg BMI (Body Mass Index) 27.8 kg/m2 Ejection Fraction 65-70% 06/03/2017 Height 70 inches 5'10" Weight 193.00 lb w/ boots Heart Rate 64 /min reg BP Systolic Sitting 130 mmHg Lue, reg cuff BP Diastolic Sitting 66 mmHg Lue, reg cuff Respiratory Rate 16 /min BMI (Body Mass Index) 27.7 kg/m2 Ejection Fraction 65-70% as of 06/201612/14/2016 Height 70 inches 5'10" Weight 195.00 lb Heart Rate 84 /min BP Systolic Sitting 148 mmHg LA reg cuff BP Diastolic Sitting 72 mmHg LA reg cuff BP Systolic Standing 130 mmHg LA reg cuff BP Diastolic Standing 62 mmHg LA reg cuff BMI (Body Mass Index) 28.0 kg/m2 Ejection Fraction 55% - 60% stress test 06/30/16 11/09/2016 Height 70 inches 5'10" Weight 193.00 lb with shoes Heart Rate 86 /min BP Systolic Sitting 156 mmHg LA reg cuff BP Diastolic Sitting 70 mmHg LA reg cuff BMI (Body Mass Index) 27.7 kg/m2 Ejection Fraction 55% - 60% stress echo 06/30/16 06/21/2016 Height 70 inches 5'10" Weight 210.75 lb with shoes Heart Rate 86 /min BP Systolic Sitting 156 mmHg LA lrg cuff BP Diastolic Sitting 82 mmHg LA lrg cuff BMI (Body Mass Index) 30.2 kg/m2 Ejection Fraction 65%-70% echo 06/11/16 05/25/2016 Height 70 inches 5'10" Weight 214.25 lb w/shoes Heart Rate 62 /min BP Systolic Sitting 142 mmHg LA reg cuff BP Diastolic Sitting 80 mmHg LA reg cuff BMI (Body Mass Index) 30.7 kg/m2 Ejection Fraction 55% Stress Echo 09/17/15 08/13/2015 Height 70 inches 5'10" Weight 222.75 lb w/shoes Heart Rate 76 /min BP Systolic Sitting 146 mmHg LA lg cuff BP Diastolic Sitting 64 mmHg LA lg cuff BMI (Body Mass Index) 32.0 kg/m2 Ejection Fraction 60-65 echo 03/31/15 06/19/2015 Height 70 inches 5'10" Weight 223.00 lb w/shoes Heart Rate 80 /min BP Systolic Sitting 150 mmHg Ra reg cuff BP Diastolic Sitting 78 mmHg Ra reg cuff BMI (Body Mass Index) 32.0 kg/m2 Ejection Fraction 60-65 echo 03/31/15 05/07/2015 Height 70 inches 5'10" Weight 223.00 lb w/shoes Heart Rate 80 /min BP Systolic Sitting 164 mmHg LA reg cuff BP Diastolic Sitting 72 mmHg LA reg cuff BMI (Body Mass Index) 32.0 kg/m2 Ejection Fraction 60-65 echo 03/31/15 04/09/2015 Height 70 inches 5'10" Weight 223.00 lb Heart Rate 88 /min BP Systolic Sitting 158 mmHg left arm, reg cuff BP Diastolic Sitting 78 mmHg left arm, reg cuff BMI (Body Mass Index) 32.0 kg/m2 Ejection Fraction 60-65% 03/31/15 02/17/2015 Height 70 inches 5'10" Weight 220.00 lb Heart Rate 76 /min BP Systolic Sitting 176 mmHg LA, reg BP Diastolic Sitting 78 mmHg LA, reg BMI (Body Mass Index) 31.6 kg/m2 Ejection Fraction 60%-65% 01/08/15 01/22/2015 Height 70 inches 5'10" Weight 220.25 lb w/ shoes Heart Rate 74 /min BP Systolic Sitting 160 mmHg LA, reg BP Diastolic Sitting 78 mmHg LA, reg BMI (Body Mass Index) 31.6 kg/m2 Ejection Fraction 65-70% 07/02/14 echo 12/12/2014 Height 70 inches 5'10" Weight 218.75 lb w/shoes Heart Rate 70 /min BP Systolic Sitting 142 mmHg LA reg cuff BP Diastolic Sitting 70 mmHg LA reg cuff Respiratory Rate 12 /min BMI (Body Mass Index) 31.4 kg/m2 09/11/2014 Height 70 inches 5'10" Weight 214.00 lb Heart Rate 78 /min BP Systolic 170 mmHg LA reg BP Diastolic 62 mmHg LA reg BP Systolic Sitting 141 mmHg repeat la BP Diastolic Sitting 64 mmHg repeat la BMI (Body Mass Index) 30.7 kg/m2 08/27/2014 Height 70 inches 5'10" Weight 208.00 lb Heart Rate 80 /min BP Systolic Sitting 160 mmHg LA, reg BP Diastolic Sitting 68 mmHg LA, reg BMI (Body Mass Index) 29.8 kg/m2 08/20/2014 Height 70 inches 5'10" Heart Rate 72 /min BP Systolic 138 mmHg LA reg BP Diastolic 72 mmHg LA reg 08/20/2014 Height 70 inches 5'10" Heart Rate 72 /min BP Systolic 138 mmHg BP Diastolic 72 mmHg 08/14/2014 Height 70 inches 5'10" Weight 2134.25 lb Heart Rate 80 /min BP Systolic Sitting 142 mmHg LA, reg BP Diastolic Sitting 72 mmHg LA, reg BP Systolic Standing 136 mmHg repeat la sitting BP Diastolic Standing 80 mmHg repeat la sitting BMI (Body Mass Index) 306.2 kg/m2 07/10/2013 Height 70 inches 5'10" Weight 221.00 lb BP Systolic 138 mmHg BP Diastolic 64 mmHg Pain Level 0 BMI (Body Mass Index) 31.7 kg/m2 Results Test Date Test Result H/L Range Note Laboratory test finding 03/01/2018 Point of Care Glucose 167 mg/dL High 70 -100 1 Lipid Panel - [facility] 01/18/2018 Creatine Kinase(CK) 83 U/L 10-223 2 Comp Metabolic Panel 01/18/2018 Sodium 137 mmol/L Low 139-145 Potassium 5.1 mmol/L High 3.5-5.0 Chloride 102 mmol/L 101-111 Co2 Carbon Dioxide 31 mmol/L 22-32 Anion Gap 4 mmol/L 2-11 Glucose 157 mg/dL High 70-100 Blood Urea Nitrogen 20 mg/dL 6-24 Creatinine 0.76 mg/dL 0.67-1.17 BUN/Creatinine Ratio 26.3 High 8-20 Calcium 9.8 mg/dL 8.6-10.3 Total Protein 6.9 g/dL 6.4-8.9 Albumin 4.3 g/dL 3.2-5.2 Globulin 2.6 g/dL 2-4 Albumin/Globulin Ratio 1.7 1-3 Total Bilirubin 2.20 mg/dL High 0.2-1.0 Alkaline Phosphatase 60 U/L 34-104 Alt 20 U/L 7-52 Ast 19 U/L 13-39 Egfr Non- 100.0 >60 Egfr 128.6 >60 3 Lipid Profile (Trig/Chol/HDL) 01/18/2018 Triglycerides 159 mg/dL 4 Cholesterol 143 mg/dL 5 HDL Cholesterol 51.2 mg/dL 6 LDL Cholesterol 60 mg/dL 7 CBC Auto Diff 01/18/2018 White Blood Count 8.6 10^3/uL 3.5-10.8 Red Blood Count 5.68 10^6/uL High 4.0-5.4 Hemoglobin 16.5 g/dL 14.0-18.0 Hematocrit 49 % 42-52 Mean Corpuscular Volume 86 fL 80-94 Mean Corpuscular Hemoglobin 29 pg 27-31 Mean Corpuscular HGB Conc 34 g/dL 31-36 Red Cell Distribution Width 13 % 10.5-15 Platelet Count 270 10^3/uL 150-450 Mean Platelet Volume 7.7 um3 7.4-10.4 Abs Neutrophils 6.1 10^3/uL 1.5-7.7 Abs Lymphocytes 1.5 10^3/uL 1.0-4.8 Abs Monocytes 0.8 10^3/uL 0-0.8 Abs Eosinophils 0.1 10^3/uL 0-0.6 Abs Basophils 0.1 10^3/uL 0-0.2 Abs Nucleated RBC 0 10^3/uL Granulocyte % 71.2 % 38-83 Lymphocyte % 17.7 % Low 25-47 Monocyte % 9.2 % High 0-7 Eosinophil % 0.8 % 0-6 Basophil % 1.1 % 0-2 Nucleated Red Blood Cells % 0.1 Laboratory test finding 01/18/2018 Troponin-I (TnI) 0.01 ng/mL <0.04 8 Basic Metabolic Panel 12/29/2016 Sodium 138 mmol/L 133-145 Potassium 4.9 mmol/L 3.5-5.0 Chloride 103 mmol/L 101-111 Co2 Carbon Dioxide 28 mmol/L 22-32 Anion Gap 7 mmol/L 2-11 Glucose 138 mg/dL High 70-100 Blood Urea Nitrogen 22 mg/dL 6-24 Creatinine 0.77 mg/dL 0.67-1.17 BUN/Creatinine Ratio 28.6 High 8-20 Calcium 9.7 mg/dL 8.6-10.3 Egfr Non- 98.8 >60 Egfr 127.0 >60 9 Basic Metabolic Panel 08/24/2016 Sodium 135 mmol/L 133-145 Potassium 4.4 mmol/L 3.5-5.0 Chloride 100 mmol/L Low 101-111 Co2 Carbon Dioxide 27 mmol/L 22-32 Anion Gap 8 mmol/L 2-11 Glucose 250 mg/dL High 70-100 Blood Urea Nitrogen 18 mg/dL 6-24 Creatinine 0.81 mg/dL 0.67-1.17 BUN/Creatinine Ratio 22.2 High 8-20 Calcium 9.3 mg/dL 8.6-10.3 Egfr Non- 93.2 >60 Egfr 119.8 >60 10 Basic Metabolic Panel 06/24/2016 Sodium 136 mmol/L 133-145 Potassium 5.0 mmol/L 3.5-5.0 Chloride 99 mmol/L Low 101-111 Co2 Carbon Dioxide 29 mmol/L 22-32 Anion Gap 8 mmol/L 2-11 Glucose 154 mg/dL High 70-100 Blood Urea Nitrogen 26 mg/dL High 6-24 Creatinine 0.74 mg/dL 0.67-1.17 BUN/Creatinine Ratio 35.1 High 8-20 Calcium 9.7 mg/dL 8.6-10.3 Egfr Non- 103.4 >60 Egfr 133.0 >60 11 Laboratory test finding 02/16/2015 Lactic Acid 1.6 mmol/L 0.5-2.2 Inr/Protime 02/16/2015 Inr 0.88 0.78-1.07 Laboratory test finding 02/16/2015 Partial Thrombo Time 33.0 seconds 26.0 -36.3 PTT B-Type Natriuretic Peptide BNP 33 pg/mL 12 CBC Auto Diff 02/16/2015 White Blood Count 8.5 10^3/uL 4.8-10.8 Red Blood Count 5.46 10^6/uL High 4.0-5.4 Hemoglobin 15.6 g/dL 14.0-18.0 Hematocrit 47 % 42-52 Mean Corpuscular Volume 87 fL 80-94 Mean Corpuscular Hemoglobin 29 pg 27-31 Mean Corpuscular HGB Conc 33 g/dL 31-36 Red Cell Distribution Width 13 % 10.5-15 Platelet Count 266 10^3/uL 150-450 Mean Platelet Volume 8 um3 7.4-10.4 Abs Neutrophils 5.4 10^3/uL 1.5-7.7 Abs Lymphocytes 2.2 10^3/uL 1.0-4.8 Abs Monocytes 0.7 10^3/uL 0-0.8 Abs Eosinophils 0.2 10^3/uL 0-0.6 Abs Basophils 0.1 10^3/uL 0-0.2 Abs Nucleated RBC 0.01 10^3/uL Granulocyte % 62.9 % 38-83 Lymphocyte % 25.3 % 25-47 Monocyte % 8.5 % 1-9 Eosinophil % 2.4 % 0-6 Basophil % 0.9 % 0-2 Nucleated Red Blood Cells % 0.1 Comp Metabolic Panel 02/16/2015 Sodium 137 mmol/L 133-145 Potassium 4.1 mmol/L 3.5-5.0 Chloride 105 mmol/L 101-111 Co2 Carbon Dioxide 24 mmol/L 22-32 Anion Gap 8 mmol/L 2-11 Glucose 183 mg/dL High 70-100 Blood Urea Nitrogen 20 mg/dL 6-24 Creatinine 0.73 mg/dL 0.67-1.17 BUN/Creatinine Ratio 27.4 High 8-20 Calcium 9.1 mg/dL 8.6-10.3 Total Protein 6.9 g/dL 6.4-8.9 Albumin 4.0 g/dL 3.2-5.2 Globulin 2.9 g/dL 2-4 Albumin/Globulin Ratio 1.4 1-3 Total Bilirubin 1.10 mg/dL High 0.2-1.0 Alkaline Phosphatase 69 U/L 34-104 Alt 22 U/L 7-52 Ast 19 U/L 13-39 Egfr Non- 105.6 >60 Egfr 135.8 >60 13 Laboratory test finding 02/16/2015 Magnesium 1.9 mg/dL 1.9-2.7 14 Troponin-I (TnI) 0.01 ng/mL <0.03 15 TSH (Thyroid Stim Horm) 2.68 ?IU/mL 0.34-5.60 Lipid Panel - [facility] 09/25/2014 Creatine Kinase 53 U/L 10-223 Comp Metabolic Panel 09/25/2014 Sodium 138 mmol/L 133-145 Potassium 4.4 mmol/L 3.5-5.0 Chloride 104 mmol/L 101-111 Co2 Carbon Dioxide 30 mmol/L 22-32 Anion Gap 4 mmol/L 2-11 Glucose 138 mg/dL High 70-100 Blood Urea Nitrogen 17 mg/dL 6-24 Creatinine 0.71 mg/dL 0.67-1.17 BUN/Creatinine Ratio 23.9 High 8-20 Calcium 9.2 mg/dL 8.6-10.3 Total Protein 6.6 g/dL 6.4-8.9 Albumin 4.1 g/dL 3.2-5.2 Globulin 2.5 g/dL 2-4 Albumin/Globulin Ratio 1.6 1-3 Total Bilirubin 1.50 mg/dL High 0.2-1.0 Alkaline Phosphatase 75 U/L 34-104 Alt 19 U/L 7-52 Ast 17 U/L 13-39 Egfr Non- 109.1 >60 Egfr 140.3 >60 16 Lipid Profile (Trig/Chol/HDL) 09/25/2014 Triglycerides 100 mg/dL 17 Cholesterol 116 mg/dL 18 HDL Cholesterol 45.5 mg/dL 19 LDL Cholesterol 51 mg/dL 20 CBC Auto Diff 09/25/2014 White Blood Count 7.9 10^3/uL 4.8-10.8 Red Blood Count 5.16 10^6/uL 4.0-5.4 Hemoglobin 14.8 g/dL 14.0-18.0 Hematocrit 45 % 42-52 Mean Corpuscular Volume 88 fL 80-94 Mean Corpuscular Hemoglobin 29 pg 27-31 Mean Corpuscular HGB Conc 33 g/dL 31-36 Red Cell Distribution Width 13 % 10.5-15 Platelet Count 269 10^3/uL 150-450 Mean Platelet Volume 9 um3 7.4-10.4 Abs Neutrophils 5.5 10^3/uL 1.5-7.7 Abs Lymphocytes 1.4 10^3/uL 1.0-4.8 Abs Monocytes 0.7 10^3/uL 0-0.8 Abs Eosinophils 0.1 10^3/uL 0-0.6 Abs Basophils 0.1 10^3/uL 0-0.2 Abs Nucleated RBC 0 10^3/uL Granulocyte % 70.6 % 38-83 Lymphocyte % 17.7 % Low 25-47 Monocyte % 8.8 % 1-9 Eosinophil % 1.8 % 0-6 Basophil % 1.1 % 0-2 Nucleated Red Blood Cells % 0 Order 08/21/2014 Holter Monitor <pending> CBC Auto Diff 08/21/2014 White Blood Count 9.3 10^3/uL 4.8-10.8 Red Blood Count 5.43 10^6/uL High 4.0-5.4 Hemoglobin 15.7 g/dL 14.0-18.0 Hematocrit 48 % 42-52 Mean Corpuscular Volume 89 fL 80-94 Mean Corpuscular Hemoglobin 29 pg 27-31 Mean Corpuscular HGB Conc 33 g/dL 31-36 Red Cell Distribution Width 13 % 10.5-15 Platelet Count 275 10^3/uL 150-450 Mean Platelet Volume 9 um3 7.4-10.4 Abs Neutrophils 6.2 10^3/uL 1.5-7.7 Abs Lymphocytes 2.0 10^3/uL 1.0-4.8 Abs Monocytes 0.8 10^3/uL 0-0.8 Abs Eosinophils 0.2 10^3/uL 0-0.6 Abs Basophils 0.1 10^3/uL 0-0.2 Abs Nucleated RBC 0.01 10^3/uL Granulocyte % 67.2 % 38-83 Lymphocyte % 21.4 % Low 25-47 Monocyte % 8.5 % 1-9 Eosinophil % 2.0 % 0-6 Basophil % 0.9 % 0-2 Nucleated Red Blood Cells % 0.1 Laboratory test finding 08/21/2014 Troponin I 0.00 ng/mL <0.03 21 Comp Metabolic Panel 08/21/2014 Sodium 138 mmol/L 133-145 Potassium 4.1 mmol/L 3.5-5.0 Chloride 105 mmol/L 101-111 Co2 Carbon Dioxide 26 mmol/L 22-32 Anion Gap 7 mmol/L 2-11 Glucose 165 mg/dL High 70-100 Blood Urea Nitrogen 28 mg/dL High 6-24 Creatinine 0.79 mg/dL 0.67-1.17 BUN/Creatinine Ratio 35.4 High 8-20 Calcium 9.0 mg/dL 8.6-10.3 Total Protein 7.0 g/dL 6.4-8.9 Albumin 4.2 g/dL 3.2-5.2 Globulin 2.8 g/dL 2-4 Albumin/Globulin Ratio 1.5 1-3 Total Bilirubin 0.70 mg/dL 0.2-1.0 Alkaline Phosphatase 64 U/L 34-104 Alt 22 U/L 7-52 Ast 18 U/L 13-39 Egfr Non- 96.4 >60 Egfr 124.0 >60 22 1 Senior Product Manager: [id number] 2 2 WEEKS NON-FASTING W/ LOWER DOSE HCTZ CC:PMD 3 Because ethnic data is not always readily available, this report includes an eGFR for both -Americans and non- Americans. The National Kidney Disease Education Program (NKDEP) does not endorse the use of the MDRD equation for patients that are not between the ages of 18 and 70, are , have extremes of body size, muscle mass, or nutritional status, or are non- or non-. According to the National Kidney Foundation, irrespective of diagnosis, the stage of the disease is based on the level of kidney function: Stage Description GFR(mL/min/1.73 m(2)) 1 Kidney damage with normal or decreased GFR 90 2 Kidney damage with mild decrease in GFR 60-89 3 Moderate decrease in GFR 30-59 4 Severe decrease in GFR 15-29 5 Kidney failure <15 (or dialysis) 4 Desirable: <150 Borderline High: 150-199 High: 200-499 Very High: >500 5 Desirable: <200 Borderline High: 200-239 High: >239 6 Low: <40 Desirable: 40-60 High: >60 7 Desirable: <100 Near Optimal: 100-129 Borderline High: 130-159 High: 160-189 Very High: >189 8 2 WEEKS NON-FASTING W/ LOWER DOSE HCTZ CC:PMD 9 Because ethnic data is not always readily available, this report includes an eGFR for both -Americans and non- Americans. The National Kidney Disease Education Program (NKDEP) does not endorse the use of the MDRD equation for patients that are not between the ages of 18 and 70, are , have extremes of body size, muscle mass, or nutritional status, or are non- or non-. According to the National Kidney Foundation, irrespective of diagnosis, the stage of the disease is based on the level of kidney function: Stage Description GFR(mL/min/1.73 m(2)) 1 Kidney damage with normal or decreased GFR 90 2 Kidney damage with mild decrease in GFR 60-89 3 Moderate decrease in GFR 30-59 4 Severe decrease in GFR 15-29 5 Kidney failure <15 (or dialysis) 10 Because ethnic data is not always readily available, this report includes an eGFR for both -Americans and non- Americans. The National Kidney Disease Education Program (NKDEP) does not endorse the use of the MDRD equation for patients that are not between the ages of 18 and 70, are , have extremes of body size, muscle mass, or nutritional status, or are non- or non-. According to the National Kidney Foundation, irrespective of diagnosis, the stage of the disease is based on the level of kidney function: Stage Description GFR(mL/min/1.73 m(2)) 1 Kidney damage with normal or decreased GFR 90 2 Kidney damage with mild decrease in GFR 60-89 3 Moderate decrease in GFR 30-59 4 Severe decrease in GFR 15-29 5 Kidney failure <15 (or dialysis) 11 Because ethnic data is not always readily available, this report includes an eGFR for both -Americans and non- Americans. The National Kidney Disease Education Program (NKDEP) does not endorse the use of the MDRD equation for patients that are not between the ages of 18 and 70, are , have extremes of body size, muscle mass, or nutritional status, or are non- or non-. According to the National Kidney Foundation, irrespective of diagnosis, the stage of the disease is based on the level of kidney function: Stage Description GFR(mL/min/1.73 m(2)) 1 Kidney damage with normal or decreased GFR 90 2 Kidney damage with mild decrease in GFR 60-89 3 Moderate decrease in GFR 30-59 4 Severe decrease in GFR 15-29 5 Kidney failure <15 (or dialysis) 12 >100 to <200 pg/mL: likely compensated congestive heart failure (CHF) 200 to 400 pg/mL: likely moderate CHF >400 pg/mL: likely moderate to severe CHF 13 Because ethnic data is not always readily available, this report includes an eGFR for both -Americans and non- Americans. The National Kidney Disease Education Program (NKDEP) does not endorse the use of the MDRD equation for patients that are not between the ages of 18 and 70, are , have extremes of body size, muscle mass, or nutritional status, or are non- or non-. According to the National Kidney Foundation, irrespective of diagnosis, the stage of the disease is based on the level of kidney function: Stage Description GFR(mL/min/1.73 m(2)) 1 Kidney damage with normal or decreased GFR 90 2 Kidney damage with mild decrease in GFR 60-89 3 Moderate decrease in GFR 30-59 4 Severe decrease in GFR 15-29 5 Kidney failure <15 (or dialysis) 14 [MG] affected by ICTERUS 15 Reference Range and Interpretation: TnI (ng/mL) Interpretation Less Than 0.03 ng/mL Not supportive of diagnosis of DC 0.03 - 0.50 ng/mL Indeterminate: suggest serial studies if clinically indicated. Greater than 0.5 ng/mL Consistent with diagnosis of DC 16 Because ethnic data is not always readily available, this report includes an eGFR for both -Americans and non- Americans. The National Kidney Disease Education Program (NKDEP) does not endorse the use of the MDRD equation for patients that are not between the ages of 18 and 70, are , have extremes of body size, muscle mass, or nutritional status, or are non- or non-. According to the National Kidney Foundation, irrespective of diagnosis, the stage of the disease is based on the level of kidney function: Stage Description GFR(mL/min/1.73 m(2)) 1 Kidney damage with normal or decreased GFR 90 2 Kidney damage with mild decrease in GFR 60-89 3 Moderate decrease in GFR 30-59 4 Severe decrease in GFR 15-29 5 Kidney failure <15 (or dialysis) 17 Desirable <150 Borderline high 150-199 High 200-499 Very High >500 18 Desirable <200 Borderline high 200-239 High >239 19 Low <40 Desirable: 40-60 High: >60 20 Desirable <100 Near Optimal 100-129 Borderline high 130-159 High 160-189 Very High >189 21 Reference Range and Interpretation: TnI (ng/mL) Interpretation Less Than 0.03 ng/mL Not supportive of diagnosis of DC 0.03 - 0.50 ng/mL Indeterminate: suggest serial studies if clinically indicated. Greater than 0.5 ng/mL Consistent with diagnosis of DC 22 Because ethnic data is not always readily available, this report includes an eGFR for both -Americans and non- Americans. The National Kidney Disease Education Program (NKDEP) does not endorse the use of the MDRD equation for patients that are not between the ages of 18 and 70, are , have extremes of body size, muscle mass, or nutritional status, or are non- or non-. According to the National Kidney Foundation, irrespective of diagnosis, the stage of the disease is based on the level of kidney function: Stage Description GFR(mL/min/1.73 m(2)) 1 Kidney damage with normal or decreased GFR 90 2 Kidney damage with mild decrease in GFR 60-89 3 Moderate decrease in GFR 30-59 4 Severe decrease in GFR 15-29 5 Kidney failure <15 (or dialysis) Procedures Date CPT Code Description Status 03/24/2018 82195 Biopsy Skin Lesion Single Completed 02/24/2018 52839 Nerve Conduction 05-06 Studies Completed 02/24/2018 25262 Needle Electromyography Each Extremity W/Related Completed Paraspinal Areas 02/16/2018 13274 Holter Monitor Review (24 hr)dr review & interp only Completed 02/13/2018 85378 ECG Monitor/Recording W/Visual Superimposition Scanning Completed 02/07/2018 18302 ECHO Transthoracic, Real-Time 2D With Doppler And Color Completed Flow 02/07/2018 06664 ECHO Transthoracic, Real-Time 2D With Doppler And Color Completed Flow 01/18/2018 85896 EKG Tracing & Interpretation Completed 10/05/2017 23226 EKG Tracing & Interpretation Completed 08/26/2017 36315 Stress Test Supervsn W/Out I/R Completed 08/26/2017 16366 Treadmill Interp/Report Only Completed 08/16/2017 70637 ECHO Transthoracic, Real-Time 2D With Doppler And Color Completed Flow 06/03/2017 47987 EKG Tracing & Interpretation Completed 11/09/2016 16888 EKG Tracing & Interpretation Completed 06/30/2016 32526 ECHO Stress Test Incl Perf Contiuous ekg Monitoring Completed W/Phys Superv 06/11/2016 87095 ECHO Transthoracic, Real-Time 2D With Doppler And Color Completed Flow 05/25/2016 38490 EKG Tracing & Interpretation Completed 09/17/2015 72826 ECHO Stress Test Incl Perf Contiuous ekg Monitoring Completed W/Phys Superv 09/17/2015 58771 ECHO Stress Test Incl Perf Contiuous ekg Monitoring Completed W/Phys Superv 08/13/2015 02106 EKG Tracing & Interpretation Completed 06/20/2015 83891 EKG Tracing & Interpretation Completed 05/07/2015 50145 EKG Tracing & Interpretation Completed 04/09/2015 97429 EKG Tracing & Interpretation Completed 03/31/2015 17967 ECHO Transthoracic, Real-Time 2D With Doppler And Color Completed Flow 03/20/2015 20164 Holter Monitor Review (24 hr)dr review & interp only Completed 03/20/2015 45341 ECG Monitor/Recording W/Visual Superimposition Scanning Completed 03/19/2015 75968 Holter Monitor Review (24 hr)dr review & interp only Completed 03/19/2015 29537 ECG Monitor/Recording W/Visual Superimposition Scanning Completed 02/17/2015 46721 EKG Tracing & Interpretation Completed 01/28/2015 48752 ECHO Transthoracic, Real-Time 2D With Doppler And Color Completed Flow 12/12/2014 29870 EKG Tracing & Interpretation Completed 09/11/2014 25379 EKG Tracing & Interpretation Completed 08/27/2014 04430 EKG Tracing & Interpretation Completed 08/20/2014 94187 Holter Monitor Review (24 hr)dr review & interp only Completed 08/20/2014 39806 ECG Monitor/Recording W/Visual Superimposition Scanning Completed 08/20/2014 11733 EKG Tracing & Interpretation Completed 08/20/2014 78516 EKG Tracing & Interpretation Completed 08/14/2014 01022 EKG Tracing & Interpretation Completed 07/02/2014 53586 ECHO Transthoracic, Real-Time 2D With Doppler And Color Completed Flow 07/24/2010 66167 EKG, Interpretation Only Completed Encounters Type Date Location Provider CPT E/M Dx Office Visit 03/29/2018 [facility] Domenica Hernandez, N.P. 25342 I35.0 9:30a [employer] I25.10 I73.9 R00.2 Office Visit 03/24/2018 10:50a [facility] [place] [address] L20.84 L98.9 Office Visit 01/18/2018 8:30a [facility] Jono Griffin M.D. 15989 I35.0 I73.9 I25.10 E11.9 R07.9 R00.2 Office Visit 01/17/2018 1:30p [facility] 84248 M54.5 Of Corrie Pak MD M47.26 M48.061 Office Visit 10/05/2017 11:40a [facility] Jono Griffin M.D. 96550 R07.9 I35.0 I73.9 I25.10 E11.9 I34.2 Office Visit 08/22/2017 10:30a [facility] LEEANN Brower 86277ZUB I35.0 I73.9 I25.10 E11.9 Office Visit 08/04/2017 11:32a [facility] Ramon Dickinson, 49511 G43.109 MD I10 Office Visit 06/03/2017 2:40p [facility] Jono Griffin M.D. 50613 I10 R42 I25.10 I35.0 R07.9 I49.5 R94.31 Office Visit 12/14/2016 9:00a [facility] LEEANN Brower 51675 I10 R42 Office Visit 11/09/2016 3:20p [facility] Jono Griffin 25201 I25.10 Jaun I35.0 I10 R42 Office Visit 06/21/2016 10:30a [facility] LEEANN Brower 79412PMB I35.0 I25.10 I10 Office Visit 05/25/2016 3:40p [facility] Jono Griffin M.D. 99790 I35.0 E11.9 I10 I25.10 Office Visit 08/13/2015 2:00p [facility] Jono Griffin 26825 R94.31 MHari E11.9 I10 I25.10 Office Visit 06/19/2015 10:00a [facility] LEEANN Brower 62713 I10 I73.9 M54.30 M79.606 E78.5 I25.10 Office Visit 05/07/2015 8:30a [facility] LEEANN Brower 60960 427.31 401.9 250.00 443.9 414.01 424.1 Office Visit 04/09/2015 8:40a [facility] Jono Griffin M.D. 88290 424.1 414.01 427.31 401.9 Office Visit 02/17/2015 10:40a [facility] Jono Griffin M.D. 01170 424.1 414.01 250.00 443.9 786.50 307.49 427.31 Office Visit 02/16/2015 8:11a [facility], Sue Leach N.P. 82528 427.31 Hospitalists 414.00 401.9 Office Visit 01/22/2015 10:30a [facility] LEEANN Brower 02880 424.1 272.4 414.01 729.5 443.9 Office Visit 12/12/2014 1:20p [facility] Jono Griffin M.D. 36065 424.1 272.4 250.00 440.8 Office Visit 09/11/2014 3:40p [facility] Jono Griffin M.D. 56106 272.4 424.1 786.50 250.00 440.8 414.01 Office Visit 08/27/2014 12:30p [facility] LEEANN Brower 93606 414.0 272.4 786.50 424.1 729.5 Office Visit 08/21/2014 1:03p [facility], 06019 786.50 Assoc, Hospitalists Jaun 786.50 250.00 250.00 401.9 272.4 272.4 Office Visit 08/20/2014 9:00a [facility] Jono Griffin 20567 786.50 MHari 401.9 786.05 424.1 Office Visit 08/14/2014 9:00a [facility] Jono Griffin M.D. 71095 401.9 785.2 786.50 724.02 250.00 785.9 780.4 Office Visit 07/10/2013 1:20p [facility] Jerardo Anderson, 71466 724.3 Of Corrie Zamorano Office Visit 10/18/2012 2:00p [facility] Jerardo StephonCalderon Anderson, 88944 724.02 Of Corrie Zamorano 781.0 Plan of Care Future Appointment(s):06/13/2018 10:20 am - Jnoo Griffin M.D. at [facility]04/19/2018 11:30 am - Saida Pak MD at [facility]03/29/2018 - Domenica Hernandez N.P.I35.0 Nonrheumatic aortic (valve ) stenosisFollow up:06/2019 OV Gaby as scheduled.I25.10 Athscl heart disease of [place] coronary artery w/o ang pctrsRecommendations:Increase Crestor to 1/2 tab daily.I73.9 Peripheral vascular disease, ijpdmyohzlwT48.2 Palpitations
[2018-04-28 02:58] LABS: ABS Basophils 0.1 10^3/ul (0-0.2); ABS Eosinophils 0 10^3/ul (0-0.6); ABS Lymphocytes 0.4 10^3/ul (1.0-4.8); ABS Monocytes 1.1 10^3/ul (0-0.8); ABS Neutrophils 12.1 10^3/ul (1.5-7.7); ABS Nucleated RBC 0 10^3/ul; Eosinophil % 0.2 % (0-6); Hematocrit 26 % (42-52); Hemoglobin 8.3 g/dl (14.0-18.0); Lymphocyte % 3.1 % (25-47); Mean Corpuscular HGB Conc 32 g/dl (31-36); Mean Corpuscular Hemoglobin 28 pg (27-31); Mean Corpuscular Volume 88 fL (80-94); Mean Platelet Volume 8.9 um3 (7.4-10.4); Nucleated Red Blood Cells % 0.1; Platelet Count 288 10^3/ul (150-450); Red Cell Distribution Width 14 % (10.5-15); White Blood Count 13.8 10^3/ul (3.5-10.8)
--- NOTE | 2018-04-28 02:58 | ED ---
Shortness of Breath - HPI Summary HPI Summary: Pt is a 78 year old male presenting to the ED BIBA with a chief complaint of weakness. Pt has a fresh sternotomy scar from CABG surgery on 04/10 in [place], he had a pegging tube placed the other day that is still present. His SOB was particularly bad today, has no current SOB, but complains of orthopnea. Pt also complains of ulcers and hemorrhoids. Pt fell on his way home from the hospital the other day. - History of Current Complaint Chief Complaint: EDWeakness Time Seen by Provider: 04/28/18 02:25 Hx Obtained From: Patient Onset/Duration: Sudden Onset, Lasting Days Current Severity: Mild Dyspnea At: Orthopena Aggrevating Factors: Movement Alleviating Factors: Upright Position - Allergy/Home Medications Allergies/Adverse Reactions: Allergies Allergy/AdvReac Type Severity Reaction Status Date / Time No Known Allergies Allergy Verified 01/02/18 15:31 Home Medications: Home Medications Acetaminophen TAB* [Tylenol TAB*] 650 mg PO Q4H PRN 04/28/18 [History Confirmed 04/28/18] Apixaban* [Eliquis] 2.5 mg PO BID 04/28/18 [History Confirmed 04/28/18] Aspirin [Aspirin Childrens 81 MG] 81 mg PO DAILY 04/28/18 [History Confirmed ] Digoxin [Digitek] 0.125 mg PO DAILY 04/28/18 [History Confirmed 04/28/18] Gabapentin [Neurontin] 200 mg PO BEDTIME 04/28/18 [History Confirmed 04/28/18] Ubidecarenone [Coenzyme Q-10] 30 mg PO DAILY 04/28/18 [History Confirmed ] PMH/Surg Hx/FS Hx/Imm Hx Previously Healthy: No Endocrine/Hematology History: Reports: Hx Diabetes Cardiovascular History: Reports: Hx Angina, Hx Coronary Artery Disease - stent, Hx Hypercholesterolemia, Hx Hypertension Denies: Hx Pacemaker/ICD, Hx Valvular Heart Disease Respiratory History: Denies: Hx Asthma, Hx Chronic Obstructive Pulmonary Disease (COPD) GI History: Reports: Hx Gastroesophageal Reflux Disease History: Reports: Hx Benign Prostatic Hyperplasia Denies: Hx Renal Disease Musculoskeletal History: Reports: Hx Arthritis Sensory History: Reports: Hx Hearing Aid - dosen't wear them Denies: Hx Contacts or Glasses Opthamlomology History: Denies: Hx Contacts or Glasses Psychiatric History: Denies: Hx Panic Disorder, Hx Substance Abuse - Surgical History Surgery Procedure, Year, and Place: gallbladder 5-6 yrs ago, prostate cmc SHAVED. 2 HEART STENTS 2013 [facility] - Immunization History Date of Tetanus Vaccine: unknown Infectious Disease History: No Infectious Disease History: Denies: Traveled Outside the [place] in Last 30 Days - Family History Known Family History: Positive: Cardiac Disease, Other - brain tumors - Social History Alcohol Use: None Substance Use Type: Reports: None Smoking Status (MU): Unknown if Ever Smoked Type: Cigarettes Have You Smoked in the Last Year: No Review of Systems Positive: Other - orthopnea. Negative: Shortness Of Breath Positive: Other - ulcers Positive: other - hemorrhoids Positive: Weakness All Other Systems Reviewed And Are Negative: Yes Physical Exam - Summary Physical Exam Summary: Appearance: Chronically ill appearing, moderately distressed Skin: Mild pallor, fresh sternotomy scar, otherwise normal and dry Head/face: normal Eyes: EOMI, MICHELLE ENT: mild pallor Neck: supple, non-tender Respiratory: CTA, fine crackles in bases Cardiovascular: pulses symmetrical, diastolic murmur, rhythm is regular Abdomen: non-tender, soft, LUQ healing drain sites Bowel Sounds: present Musculoskeletal: strength/ROM intact, large nontender hematoma on L thigh, some hematoma in suprapubic area as well, 3+ pitting edema Neuro: normal, sensory motor intact, A&Ox3 : Multiple hemorrhoids, nothing actively bleeding Triage Information Reviewed: Yes Vital Signs On Initial Exam: Initial Vitals Temp Pulse Resp BP Pulse Ox 97.4 F 60 23 88/38 93 04/28/18 02:22 04/28/18 02:22 04/28/18 02:22 04/28/18 02:22 04/28/18 02:22 Vital Signs Reviewed: Yes Diagnostics - Vital Signs Vital Signs Temp Pulse Resp BP Pulse Ox 04/28/18 02:22 97.4 F 60 23 88/38 93 - Laboratory Result Diagrams: 04/28/18 02:45 04/28/18 02:45 Lab Statement: Any lab studies that have been ordered have been reviewed, and results considered in the medical decision making process. - Radiology No standard instances Xray Interpretation: Positive (See Comments) - 0230 - bilateral effusion, atelectasis vs. infiltrate right base Radiology Interpretation Completed By: ED Physician - Radiologist confirmation pending. - EKG No standard instances Cardiac Rate: NL - 60 bpm EKG Rhythm: Sinus Rhythm - [address] Segment: Non-Specific EKG Interpretation: low voltage, normal axis Re-Evaluation - Re-Evaluation 0332 Re-Evaluation Time: 03:32 Change: Unchanged Comment: Pt is relatively unchanged, still breathing heavy. Troponin is .13. Course/Dx - Course Course Of Treatment: Humberto presents to weeks postop from complicated coronary artery bypass for he was reintubated on postop day 3 -- he presents today with generalized weakness pallor and dyspnea. His blood pressures hovered around 80 systolic with a heart rate in the high 50s. Bedside ultrasound indicates no large cardial effusion. He has no abdominal pain or fever. His lactate is elevated but this appears to not be from infectious source. Hospitalist was contacted and came to the ER to help me evaluate and resuscitate. We did start blood given his hemoglobin of 8.3 and a cardiac patient. We also started dopamine given a slow heart rate despite the blood pressure. The patient Mente did throughout his stay and had week radial pulses. Chest x-ray does not show any appreciable increase in size of the heart. There is no significant infiltrate. He does have left-sided pleural effusion. His creatinine is elevated over baseline per [facility]. We spoke to the ICU attendings there and the cardiac surgeon who have septated him in transfer. He will be transported by air given the distance and his acuity. He also has ongoing issue with hemorrhoids and is on blood thinner. His hemoglobin has been stable with his last one being 8.2 at [facility]. Oxygen saturations have been stable in the mid 90s on 2-3 L of oxygen. His work of breathing is normalized. - Diagnoses Differential Diagnosis/HQI/PQRI: Positive: Other - shock -- cardiogenic versus hypovolemic versus septic. GI bleed, bleed into the thigh. Renal failure. Provider Diagnoses: Cardiogenic shock, Renal insufficiency, Anemia, Dyspnea - Critical Care Time Critical Care Time: 75-104 min Discharge - Sign-Out/Discharge Documenting (check all that apply): Patient Departure - transfer - Discharge Plan Condition: Critical Disposition: TRANS HIGHER LVL OF CARE FAC Referrals: Tawanda Gómez MD [Primary Care Provider] - - Billing Disposition and Condition Condition: CRITICAL Disposition: Trans Higher Lvl of Care Fac - Attestation Statements Document Initiated by Scribe: Yes Documenting Scribe: Gunjan Baker Provider For Whom Darcy is Documenting (Include Credential): Malik Parikh MD. Scribe Attestation: IGunjan, scribed for Malik Parikh MD. on 04/28/18 at 0425. Scribe Documentation Reviewed: Yes Provider Attestation: The documentation as recorded by the scribe, Gunjan Baker accurately reflects the service I personally performed and the decisions made by me, Malik Parikh MD. Consult Consult: Spoke with Malvin Aden about pt status at 0316. Markie came to see pt around 0330. Another consult at 0354 with the receiving physician at [facility]. They have a separate cardiac ICU, but they sent the medical ICU for transport. 0415 Dr. Ashford will be doing the consult for the pt and Dr. Fisher will be the physician accepting the pt at [facility].
[2018-04-28 03:04] LABS: INR 1.78 (0.77-1.02)
[2018-04-28 03:14] LABS: EGFR Non-African American 36.9 (>60)
[2018-04-28] MEDS ORDERED: DOPamine 800 MG/250 ML IVPREM* 800 MG/250 ML ML CENTR SCH (03:30)
[2018-04-28 04:32] VITALS: BP 81/51
--- NOTE | 2018-04-28 08:14 | RAD ---
INDICATION: Short of breath COMPARISON: February 15, 2018 TECHNIQUE: An AP portable view obtained at 0230 hours is submitted. FINDINGS: Bones/Soft Tissues: There are no acute bony findings. There is interval sternotomy Cardiomediastinal: The cardiomediastinal silhouette is normal in size allowing for AP portable technique. Lungs: There is mild bibasilar hypoventilation with left-sided infiltrate or atelectasis. Pleura: Small bilateral pleural effusions. Other: None IMPRESSION: INTERVAL CARDIOTHORACIC SURGERY. MILD BIBASILAR AIRSPACE DISEASE AND SMALL BILATERAL PLEURAL EFFUSIONS. R1
== END 2018-04-28 04:33 | disposition short-term general hospital (02) ==
LOC: ED 02:19
DX: R57.0 Cardiogenic shock (principal); N28.9 Disorder of kidney and ureter, unspecified; D64.9 Anemia, unspecified; R06.00 Dyspnea, unspecified; R53.1 Weakness; I25.10 Atherosclerotic heart disease of native coronary artery without angina pectoris; I10 Essential (primary) hypertension; Z95.5 Presence of coronary angioplasty implant and graft
CPT/HCPCS: 36415; 36430; 71045; 80053; 80162; 83605; 83735; 83880; 84443; 84484; 85025; 85610; 85730; 86850; 86900; 86901; 86922; 87040; 93005; 96360; 99285; J1265; P9040

== ENCOUNTER 2018-05-13 21:02 | Inpatient (IN) | payer MEDICARE, BC ==
[2018-05-13] MEDS ORDERED: Albuterol/Ipratropium NEB.SOL* Albuterol 2.5 MG/Ipratropium 0.5 MG 3 ML INH ONE (21:22)
[2018-05-13] MEDS ORDERED: Codeine TAB* 30 MG PO ONE (21:23)
[2018-05-13] MEDS ORDERED: methylPREDNISolone 125 MG* 2 ML VIAL IV ONE (21:23)
--- NOTE | 2018-05-13 21:23 | ED ---
Complex/Multi-Sys Presentation - HPI Summary HPI Summary: 78 year old M BIB EMS from [facility] to [facility] complains cough since last night. Symptoms aggravated by nothing. Symptoms alleviated by nothing. Patient reports shortness of breath. He denies fever. He additionally complains of tailbone pain and external hemorrhoids. He has a feeding tube. - History Of Current Complaint Chief Complaint: EDGeneral Time Seen by Provider: 05/13/18 21:08 Hx Obtained From: Patient Onset/Duration: Lasting Days - 1, Still Present Timing: Constant Aggravating Factor(s): Nothing Alleviating Factor(s): Nothing Associated Signs And Symptoms: Positive: Other - shortness of breath; tailbone pain and external hemorrhoids. Negative: Fever - Allergies/Home Medications Allergies/Adverse Reactions: Allergies Allergy/AdvReac Type Severity Reaction Status Date / Time No Known Allergies Allergy Verified 05/13/18 21:13 PMH/Surg Hx/FS Hx/Imm Hx Previously Healthy: No Endocrine/Hematology History: Reports: Hx Diabetes Cardiovascular History: Reports: Hx Angina, Hx Atrial Fibrillation, Hx Coronary Artery Disease - stent, Hx Hypercholesterolemia, Hx Hypertension Denies: Hx Pacemaker/ICD, Hx Valvular Heart Disease Respiratory History: Denies: Hx Asthma, Hx Chronic Obstructive Pulmonary Disease (COPD) GI History: Reports: Hx Gastroesophageal Reflux Disease History: Reports: Hx Benign Prostatic Hyperplasia Denies: Hx Renal Disease Musculoskeletal History: Reports: Hx Arthritis Sensory History: Reports: Hx Contacts or Glasses, Hx Hearing Aid - dosen't wear them Opthamlomology History: Reports: Hx Contacts or Glasses Neurological History: Denies: Hx CVA, Hx Transient Ischemic Attacks (TIA) Psychiatric History: Denies: Hx Panic Disorder, Hx Substance Abuse - Surgical History Surgery Procedure, Year, and Place: gallbladder 5-6 yrs ago, prostate cmc SHAVED. 2 HEART STENTS 2013 [facility]. Heart dissection, aortic valve, bypass - Immunization History Date of Tetanus Vaccine: utd Date of Influenza Vaccine: fall 2016 Infectious Disease History: No Infectious Disease History: Denies: Traveled Outside the [place] in Last 30 Days - Family History Known Family History: Positive: Cardiac Disease, Other - brain tumors - Social History Alcohol Use: None Hx Substance Use: No Substance Use Type: Reports: None Smoking Status (MU): Unknown if Ever Smoked Type: Cigarettes Have You Smoked in the Last Year: No Review of Systems Negative: Fever Positive: Shortness Of Breath, Cough Positive: Other - external hemorrhoids Positive: Other - tailbone pain All Other Systems Reviewed And Are Negative: Yes Physical Exam - Summary Physical Exam Summary: VITAL SIGNS: Reviewed. GENERAL: Patient is a well-developed and nourished male who is lying comfortable in the stretcher. Patient is not in any acute respiratory distress. HEAD AND FACE: No signs of trauma. No ecchymosis, hematomas or skull depressions. No sinus tenderness. EYES: PERRLA, EOMI x 2, No injected conjunctiva, no nystagmus. EARS: Hearing grossly intact. Ear canals and tympanic membranes are within normal limits. MOUTH: Oropharynx within normal limits. NECK: Supple, trachea is midline, no adenopathy, no JVD, no carotid bruit, no c- spine tenderness, neck with full ROM. CHEST:Stenotomy scar is clean and healing well LUNGS: Decreased breath sound bilaterally CVS: Patient has click ABDOMEN: Patient has a peg tube EXTREMITIES: FROM in all major joints, no edema, no cyanosis or clubbing. NEURO: Alert and oriented x 3. No acute neurological deficits. Speech is normal and follows commands. SKIN: Dry and warm Triage Information Reviewed: Yes Vital Signs On Initial Exam: Initial Vitals Temp Pulse Resp BP Pulse Ox 98.7 F 70 19 157/72 95 05/13/18 21:10 05/13/18 21:10 05/13/18 21:10 05/13/18 21:10 05/13/18 21:10 Vital Signs Reviewed: Yes Diagnostics - Vital Signs Vital Signs Temp Pulse Resp BP Pulse Ox 05/13/18 21:10 98.7 F 70 19 157/72 95 - Laboratory Result Diagrams: 05/13/18 21:31 05/13/18 21:31 Lab Statement: Any lab studies that have been ordered have been reviewed, and results considered in the medical decision making process. - Radiology CXR Radiology Interpretation Completed By: ED Physician - Right lower lobe infiltrate. Pending official report. Complex Multi-Symp Course/Dx Course Of Treatment: 78 year old M BIB EMS from [facility] to [facility] complains cough since last night. In ED course, patient was given Ventolin, Duoneb, and SOLUmedrol. CXR shows right lower lobe infiltrate. Discussed case with Dr. Chan , hospitalist, who agrees to admit patient to [facility] for further evaluation. - Diagnoses Provider Diagnoses: Aspiration pneumonia - Physician Notifications Discussed Care Of Patient With: Nikhil Chan Time Discussed With Above Provider: 22:18 Instructed by Provider To: Other - jadiel Vasquez, agrees to admit patient Discharge - Sign-Out/Discharge Documenting (check all that apply): Patient Departure - Admit - Discharge Plan Condition: Fair Disposition: ADMITTED TO [facility] Referrals: Tawanda Gómez MD [Primary Care Provider] - - Attestation Statements Document Initiated by Scribe: Yes Documenting Scribe: Caitlyn Ortega Provider For Whom Scribe is Documenting (Include Credential): Shorty Ruiz MD Scribe Attestation: I, Caitlyn Ortega, scribed for Shorty Ruiz MD on 05/13/18 at 7677.
[2018-05-13 21:38] LABS: ABS Basophils 0.1 10^3/ul (0-0.2); ABS Eosinophils 0 10^3/ul (0-0.6); ABS Lymphocytes 0.8 10^3/ul (1.0-4.8); ABS Monocytes 0.8 10^3/ul (0-0.8); ABS Neutrophils 11.3 10^3/ul (1.5-7.7); ABS Nucleated RBC 0 10^3/ul; Eosinophil % 0.2 % (0-6); Hematocrit 34 % (42-52); Lymphocyte % 6.2 % (25-47); Mean Corpuscular HGB Conc 33 g/dl (31-36); Mean Corpuscular Hemoglobin 28 pg (27-31); Mean Corpuscular Volume 86 fL (80-94); Mean Platelet Volume 8.5 um3 (7.4-10.4); Nucleated Red Blood Cells % 0.1; Platelet Count 226 10^3/ul (150-450); Red Cell Distribution Width 16 % (10.5-15); White Blood Count 13.1 10^3/ul (3.5-10.8)
[2018-05-13 21:46] LABS: INR 1.54 (0.77-1.02)
[2018-05-13 21:54] LABS: EGFR Non-African American 102.8 (>60)
[2018-05-13] MEDS ORDERED: Piperacillin/Tazobac ADVAN(*) 3.375 GM in NS 0.9% 100 ML* 100 ML IVPB ONE (22:06)
[2018-05-13] MEDS: Albuterol 2.5 MG/3 ML NEB.SOL* (0.083%) INH SCH ×2 (22:20→22:24)
[2018-05-13] MEDS ORDERED: Lidocaine PATCH 5%* 1 PATCH TRANSDERM SCH (23:00)
[2018-05-13] MEDS ORDERED: Nitroglycerin TAB 0.4 MG* 0.4 MG TAB SL PRN (23:26)
[2018-05-13] MEDS ORDERED: Acetaminophen TAB* 325 MG PO PRN (23:26)
[2018-05-13] MEDS ORDERED: Albuterol HFA INHALER* 8 gm MDI INH PRN (23:26)
[2018-05-13] MEDS ORDERED: Lidocaine PATCH 5%* 1 PATCH ONE (23:35)
[2018-05-13] MEDS ORDERED: Magnesium Sulfate 2 GM IV* 2 GM/50 ML BAG IVPB ONE (23:50)
[2018-05-13] MEDS ORDERED: Furosemide IV* 10 MG/ML VIAL (40 MG) IV ONE (23:51)
[2018-05-14] MEDS ORDERED: Dextrose 50% Syringe 50 ML* 25 GM/50 ML SYRINGE IV PUSH PRN (00:36)
[2018-05-14] MEDS: Latanoprost 0.005%* 2.5 ml BTL BOTH EYES SCH ×2 (01:06→22:02)
[2018-05-14] MEDS: Metoprolol Tartrate TAB* 25 MG PO SCH ×3 (01:10→22:00)
[2018-05-14] MEDS: Apixaban* 5 MG TAB PO SCH ×3 (01:11→22:02)
[2018-05-14] MEDS: Gabapentin CAP(*) 100 MG PO SCH ×4 (01:13→22:00)
[2018-05-14] MEDS: Atorvastatin* 10 MG TAB PO SCH ×2 (01:14→22:01)
[2018-05-14] MEDS: Melatonin 3 MG TAB PO SCH ×2 (01:15→22:01)
--- NOTE | 2018-05-14 05:05 | HP ---
HISTORY AND PHYSICAL: DATE OF ADMISSION: 05/13/18 ADMITTING PROVIDER: Nikhil Chan MD PRIMARY CARE PHYSICIAN: Dr. Tawanda Gómez. OUTPATIENT MORTUARY OPERATIONS MANAGER: Dr. Griffin. CHIEF COMPLAINT: Productive cough, shortness of breath, fatigue, chest pressure. HISTORY OF PRESENT ILLNESS: River Wheat is a 78-year-old male with past medical history of coronary artery disease, status post 3-vessel CABG on at [facility]; severe aortic stenosis, status post porcine aortic valve replacement; paroxysmal atrial fibrillation, status post Maze procedure on same date; noninsulin dependent diabetes mellitus; hypertension; hyperlipidemia; recent dysphagia in the setting of his recent surgeries and was given a PEG tube at that time and was found to have duodenal ulcer upon placement of that; BPH. The patient as recently as between 04/28/18 and was admitted back to [facility] when he presented with cardiogenic shock and suspected diastolic heart failure exacerbation and acute kidney injury. He has been at [facility] for the last 3 days. Night prior to admission, he started to develop hacking cough that kept him up all night and he was unable to get much sleep. He denies fevers, chills , or chest pain, but this afternoon did develop 3/10 chest pressure and has felt some short of breath. Notably, he has been eating some soft mechanical food since discharged back to [facility], although still getting some tube feeds, approximately half and half. On presentation to the [facility] Emergency Room, he was found to have chest x-ray concerning for continued left pleural effusion versus infiltrate. He had a leukocytosis of 13.1. His kidney function had improved back to his baseline. He had elevated CRP to 64.9 and normal procalcitonin, less than 0.1. He was afebrile, hemodynamically stable, satting well on room air, normotensive. He was referred to hospitalist service for concern for potential aspiration pneumonia given his recent coughing episodes, PEG tube placement, and left lower lobe findings. PAST MEDICAL HISTORY: Paroxysmal AFib, status post Maze, currently on amiodarone and Eliquis; CAD, status post CABG, 3 vessel on 04/10/18 at [facility]; severe aortic stenosis, status post porcine aortic valve on 04/10/18 at [facility]; hypertension; hyperlipidemia; diabetes mellitus, noninsulin dependent; dysphagia, status post PEG tube in April 2018; duodenal ulcer; and BPH. PAST SURGICAL HISTORY: As above plus 2 cholecystectomies. HOME MEDICATIONS: 1. Milk of magnesia suspension 30 mL per G-tube every 24 hours as needed for constipation. 2. Crestor 5 mg at bedtime. 3. Latanoprost solution 0.005% solution 1 drop both eyes at bedtime. 4. Calazime paste to coccyx every shift change. 5. Metformin 500 mg twice a day. 6. Finasteride 5 mg once a day. 7. Cholecalciferol 2000 units daily. 8. Coenzyme Q10 of 100 mg daily. 9. Amiodarone 400 mg daily. 10. Cyanocobalamin 100 mcg daily. 11. Timolol 0.5% 1 drop to both eyes daily. 12. Glipizide 5 mg daily. 13. Amlodipine 5 mg daily. 14. Furosemide 40 mg daily. 15. Gabapentin 100 mg twice a day and 200 mg at night. 16. Aspirin 81 mg daily. 17. Metoprolol tartrate 75 mg b.i.d. 18. Apixaban 5 mg b.i.d. 19. Nitroglycerin 0.4 mg sublingual, chest pain every 5 minutes. 20. Aspirin 650 mg every 4 hours as needed for pain. 21. Proventil HFA 2 puffs every 6 hours as needed for shortness of breath and wheezing. 22. Hydrocortisone acetate suppository every 12 hours as needed for hemorrhoids. 23. Preparation H every 4 hours as needed for hemorrhoids. ALLERGIES: None. FAMILY HISTORY: Mother on the table getting open heart surgery at age 66, father of a heart attack at age 83 and was diabetic. SOCIAL HISTORY: The patient is a former smoker, quit 25 years ago, smoked for 15 years, 1 to 2 packs a day. He was a heavy drinker for 30 years, quit 20 years ago. The patient worked at the [employer] and also worked at a construction business. He is DNR/DNI. His medical surrogate is Carmina Wheat, his , also at bedside is his daughter. REVIEW OF SYSTEMS: A complete 14-point review of systems negative except as per HPI. He does have lower extremity edema, better than previous admission; has 8 months of lower extremity neuropathy for which he plans to follow up with Dr. Pak from Neurosurgery. Denies any fevers, chills, or chest pain. He does attest to orthopnea ever since his surgery and fluid buildup, although it has been slightly better last week. He has productive cough. No headaches. No focal weakness. PHYSICAL EXAMINATION GENERAL APPEARANCE: In no acute distress, sitting up in the hospital bed. VITAL SIGNS: Temperature is 98.7, heart rate 78, respiratory rate 20 to 27, oxygen saturation 92% to 100% on room air, and blood pressure 111/45, initially 157/72. HEENT: Normocephalic, atraumatic. Pupils are equal, round, and reactive to light. Extraocular motions are intact. No scleral icterus. Moist mucous membranes. NECK: No cervical lymphadenopathy. LUNGS: Without wheezing or rhonchi, but diminished at the bilateral bases. CARDIOVASCULAR: Regular rate and rhythm. No murmurs, rubs or gallops. ABDOMEN: Soft, nontender, and nondistended. No rebound or guarding. PEG tube in the left abdomen without surrounding erythema or drainage. EXTREMITIES: Warm and well perfused. 2+ pitting edema in the lower extremities bilaterally. SKIN: No lesions. No rashes. NEUROLOGIC: Moving all extremities. Cranial nerves II through XII intact. DIAGNOSTIC STUDIES/LABORATORY DATA: White count 13.1, hemoglobin 11.0, hematocrit 34, platelets 226, neutrophils 86.7%. INR 1.54. Sodium 142, potassium 3.9, chloride 105, carbon dioxide 30, BUN 20, creatinine 0.74, glucose 140, calcium 8.4, magnesium 1.7, total bili 1.60, AST 12, ALT 16, alk phos 90, CRP 64, total protein 6.0, albumin is 3.3. Procalcitonin less than 0.1. Chest x-ray demonstrated what looks like a pleural effusion versus difficult to exclude infiltrate at the left lower base, although actually improved since when he had bilateral pleural effusions. No other gross focal infiltrate on my read. We will wait official radiology report. EKG demonstrated normal sinus rhythm, Q-wave in V1, prolonged QTC of 527, normal axis. No ST elevations or depressions. Poor R-wave progression. ASSESSMENT AND PLAN: River Wheat is a 78-year-old male with complex recent cardiac history including recent 3-vessel coronary artery bypass graft, Maze, and porcine aortic valve replacement 1 month ago with interim admission for cardiogenic shock at [facility] between 04/28/18 and 05/10/18. He is complaining of a hacking cough, shortness of breath, and some chest pressure. Initial Troponin is now just back at 0.02. EKG is without ischemic changes. Given his recent dysphagia and PEG tube and reinitiation of a soft mechanical diet with sensation of food "catching," there is some concern for aspiration pneumonia. He is about to get Zosyn in the emergency room. The patient is relatively nontoxic appearing, although very complicated cardiac history I believe we can initially manage him here without transfer. He is orthopneic and volume overloaded, though per report has been improving and has a likely component of diastolic congestive heart failure. We do not have current echo in our system, but at [place] reportedly was 65%. I am going to give him another 40 of IV Lasix now and then continue his Lasix 40 mg p.o. daily. His BNP was elevated at 2488. We will try to obtain other records from [facility] to see if there is was any concern for pneumonia at anytime, which this could represent a peripneumonic effusion that would need to be diagnostically thoracentesed. Considerations for consult to General Surgery in the a.m. after further records obtained. Of note, he is on Eliquis currently. He will continue that for now along with his amiodarone 400 mg for his paroxysmal atrial fibrillation and replete his magnesium to above 2. For his hypertension, we will continue his metoprolol tartrate 75 mg p.o. b.i.d. and amlodipine 5 mg daily and giving diuretics as mentioned. He likely has undiagnosed chronic obstructive pulmonary disease. He has never had a pulmonary function test, but has had 25 to 50 pack years of smoking history. He got Solu-Medrol 125 mg in the emergency room. He is not wheezing on exam and I don't currently suspect a COPD exacerbation. I am adding a sputum culture, legionella urine antigen and Strep pneumo urine antigen test, followup blood cultures obtained before the Zosyn was given. I am going to continue him on Augmentin starting tomorrow and given his nontoxic appearance, I am going to admit him to observation status, potentially he could be discharged if there is no need to do a thoracentesis. Continue his gabapentin for chronic pains. He reportedly has sacral decubitus for which he has been getting Calazime Skin Protectant paste. Get wound care consult. We will continue albuterol 1 puff inhaled q.6 hours p.r.n. and we will get daily weights, strict I's and O's. He is a DNR/DNI. Medical surrogate is his , Carmina. [id number]/[facility] #: [id number] ILANA
[2018-05-14 06:02] LABS: ABS Basophils 0 10^3/ul (0-0.2); ABS Eosinophils 0 10^3/ul (0-0.6); ABS Lymphocytes 0.2 10^3/ul (1.0-4.8); ABS Monocytes 0.2 10^3/ul (0-0.8); ABS Nucleated RBC 0 10^3/ul; Eosinophil % 0 % (0-6); Hematocrit 31 % (42-52); Hemoglobin 9.9 g/dl (14.0-18.0); Lymphocyte % 1.4 % (25-47); Mean Corpuscular HGB Conc 32 g/dl (31-36); Mean Corpuscular Hemoglobin 28 pg (27-31); Mean Corpuscular Volume 87 fL (80-94); Mean Platelet Volume 9.2 um3 (7.4-10.4); Nucleated Red Blood Cells % 0; Platelet Count 190 10^3/ul (150-450); Red Blood Count 3.59 10^6/ul (4.00-5.40); Red Cell Distribution Width 15 % (10.5-15); White Blood Count 12.4 10^3/ul (3.5-10.8)
[2018-05-14 06:27] LABS: EGFR Non-African American 84.2 (>60)
[2018-05-14] MEDS ORDERED: Insulin LISPRO* 1 UNITS UNIT SUBCUT SCH (07:30)
[2018-05-14] MEDS ORDERED: Acetaminophen ADULT LIQ* 650 MG/20.3 ML UDC PO PRN (08:24)
--- NOTE | 2018-05-14 08:32 | RAD ---
Indication: Cough. Single frontal view of the chest performed at 2155 hours was reviewed. Comparison is made with previous exam dated April 28, 2018. No mediastinal shift is noted. Patient is status post tracer thoracotomy. Bibasilar atelectasis is noted. There is suggestion of the right basilar infiltrate which may represent early pneumonia.. IMPRESSION: POSTOPERATIVE CHANGES ARE NOTED. THERE MAY BE BIBASILAR ATELECTASIS WITH EARLY RIGHT LOWER LOBE PNEUMONIA. R0 .
[2018-05-14] MEDS ORDERED: CYANOCOBALAMIN 100 MCG PO SCH (09:00)
[2018-05-14] MEDS ORDERED: Amoxicillin/Clavulanate TAB* 875 MG PO SCH (09:00)
--- NOTE | 2018-05-14 10:04 | PN ---
Subjective Date of Service: 05/14/18 Interval History: Pt feels much better. cough is resolving when NPO. denies abd pain Objective Active Medications: Acetaminophen (Tylenol Adult Liq*) 650 mg PO Q4H PRN PRN Reason: PAIN Albuterol (Ventolin Hfa Inhaler*) 1 puff INH Q6H PRN PRN Reason: SOB/WHEEZING Amiodarone HCl (Cordarone Tab*) 400 mg PO DAILY [facility] Amlodipine Besylate (Norvasc Tab*) 5 mg PO DAILY [facility] Amoxicillin/Clavulanate Potassium (Augmentin Susp*) 875 mg PO BID [facility] Apixaban (Eliquis*) 5 mg PO BID [facility] Last Admin: 05/14/18 01:11 Dose: 5 mg Aspirin (Aspirin 81 Mg Chew Tab*) 81 mg PO DAILY [facility] Atorvastatin Calcium (Lipitor*) 10 mg PO BEDTIME [facility]; Protocol Last Admin: 05/14/18 01:14 Dose: 10 mg Cholecalciferol (Vitamin D Tab*) 2,000 units PO DAILY [facility] Dextrose (D50w Syringe 50 Ml*) 12.5 gm IV PUSH .FOR FS < 60 - SS PRN PRN Reason: FS < 60 Finasteride (Proscar Tab*) 5 mg PO DAILY [facility] Furosemide (Lasix Tab*) 40 mg PO DAILY [facility] Gabapentin (Neurontin Cap(*)) 100 mg PO BID@0900,1200 [facility] Gabapentin (Neurontin Cap(*)) 200 mg PO BEDTIME [facility] Last Admin: 05/14/18 01:13 Dose: 200 mg Insulin Human Lispro (Humalog*) 0 units SUBCUT Q6HR [facility]; Protocol Latanoprost (Xalatan 0.005%*) 1 drop BOTH EYES BEDTIME [facility] Last Admin: 05/14/18 01:06 Dose: 1 drop Melatonin (Melatonin) 3 mg PO BEDTIME [facility] Last Admin: 05/14/18 01:15 Dose: 3 mg Metformin HCl (Glucophage*) 500 mg FEED TUBE BID [facility] Metoprolol Tartrate (Lopressor Tab*) 75 mg PO BID [facility] Last Admin: 05/14/18 01:10 Dose: 75 mg Nitroglycerin (Nitroglycerin Tab 0.4 Mg*) 0.4 mg SL Q5M PRN PRN Reason: ANGINA Non Formulary ( Cyanocobalamin 100mcg) 1 dose PO DAILY [facility] Pharmacy Profile Note (Lidocaine Patch Remove*) 1 note PATCH OFF 1200 ONE Stop: 05/14/18 12:01 Timolol Maleate (Timoptic 0.5% Opth*) 1 drop LEFT EYE QAM [facility] Vital Signs - 8 hr 05/14/18 05/14/18 05/14/18 03:07 03:17 07:52 Temperature 98.3 F 98.7 F Pulse Rate 71 71 Respiratory 20 20 18 Rate Blood Pressure 113/44 109/49 (mmHg) O2 Sat by Pulse 92 95 Oximetry Oxygen Devices in Use Now: None Appearance: 78 yo M in nAD, aAOx3 Eyes: No Scleral Icterus, PERRLA Ears/Nose/Mouth/Throat: NL Teeth, Lips, Gums, Mucous Membranes Moist Neck: NL Appearance and Movements; NL JVP, Trachea Midline Respiratory: Symmetrical Chest Expansion and Respiratory Effort, Clear to Auscultation, - - s/p sternotomy with incision healed well. RLL rhonchi Cardiovascular: NL Sounds; No Murmurs; No JVD, No Edema Abdominal: NL Sounds; No Tenderness; No Distention, No Hepatosplenomegaly, - - PEG in place, ecchymosis noted (robin after anticoagulant injections in past) Lymphatic: No Cervical Adenopathy Extremities: No Edema Skin: No Nodules or Sclerosis Neurological: Alert and Oriented x 3, NL Muscle Strength and Tone Result Diagrams: 05/14/18 05:39 05/14/18 05:39 Microbiology and Other Data: Microbiology 05/14/18 03:50 Legionella Urinary Antigen - Final Urine Negative Legionella Antigen Streptococcus pneumoniae Ag Screen - Final Negative S. pneumo Antigen 05/14/18 05:40 Nasal Screen MRSA (PCR) - Final Nasal Mrsa Not Detected 05/14/18 00:30 Gram Stain - Final Sputum Assess/Plan/Problems-Billing Assessment: 78 yo M with h/o PAF, s/p MAZE(on amiodarone and Eliquis), s/p CABG , AVR (bioprosthetic)on 04/10/18 with resultant post op dysphagia and PEG placement. Then was hospitalized back at [facility] till 05/10/18 for CHF, d/c to [facility] on 05/10/18 presented on 05/13/18 with SOB and cough. Pt was recently started back on PO food. - Patient Problems (1) Aspiration pneumonia Comment: Cont Augumentin via PEG. Stopped PO feeding and will cont TF only . Nutrtion eval pending Plan to likely d/c back to [facility] on TF only tomorrow (2) PAF (paroxysmal atrial fibrillation) Comment: cont in NSR On Amiodarone and lopressor (3) Aortic stenosis, severe Comment: s/p AVR on 04/10/18 (4) Hypertension Comment: Cont on Norvasc/lopressor Controlled (5) Chronic diastolic (congestive) heart failure Comment: Euvolemic cont home dose Lasix EF reported as 65% from [facility]. (6) DM2 (diabetes mellitus, type 2) Comment: restarting metformin, cont ISS Holding glipizide (7) DVT prophylaxis Comment: cont Eliquis Status and Disposition: OBV
[2018-05-14] MEDS: Finasteride TAB* 5 MG PO SCH (10:10)
[2018-05-14] MEDS: Aspirin 81 mg CHEW TAB* 81 MG TAB.CHEW PO SCH (10:10)
[2018-05-14] MEDS: Amiodarone TAB* 400 MG PO SCH (10:10)
[2018-05-14] MEDS: metFORMIN* 500 MG TAB FEED TUBE SCH ×2 (10:10→21:59)
[2018-05-14] MEDS: Timolol 0.5% OPTH.SOL* BTL LEFT EYE SCH (10:11)
[2018-05-14] MEDS: amLODIPine TAB* 5 MG PO SCH (10:11)
[2018-05-14] MEDS: Cholecalciferol TAB* 1000 UNITS PO SCH (10:11)
[2018-05-14] MEDS: Furosemide TAB* 40 MG PO SCH (10:11)
[2018-05-14] MEDS: Amoxicillin/Clavulanate SUSP* 400 MG/5 ML BTL PO SCH ×2 (10:31→22:00)
[2018-05-14] MEDS ORDERED: Lidocaine Patch REMOVE* 1 NOTE MISC PATCH OFF ONE (12:00)
[2018-05-14] MEDS: Cyanocobalamin TAB* 500 MCG FEED TUBE SCH (12:38)
[2018-05-14] MEDS: Insulin LISPRO* 1 UNITS UNIT SUBCUT SCH ×2 (12:39→18:11)
[2018-05-14] MEDS ORDERED: Amoxicillin/Clavulanate SUSP* 400 MG/5 ML BTL PO SCH (22:00)
[2018-05-15] MEDS: Insulin LISPRO* 1 UNITS UNIT SUBCUT SCH ×3 (00:05→12:14)
[2018-05-15 06:17] LABS: Hematocrit 33 % (42-52); Hemoglobin 10.5 g/dl (14.0-18.0); Mean Corpuscular HGB Conc 32 g/dl (31-36); Mean Corpuscular Hemoglobin 28 pg (27-31); Mean Corpuscular Volume 88 fL (80-94); Mean Platelet Volume 9.1 um3 (7.4-10.4); Platelet Count 211 10^3/ul (150-450); Red Blood Count 3.79 10^6/ul (4.00-5.40); Red Cell Distribution Width 15 % (10.5-15); White Blood Count 13.5 10^3/ul (3.5-10.8)
[2018-05-15 06:40] LABS: EGFR Non-African American 92.6 (>60)
[2018-05-15] MEDS ORDERED: Cyanocobalamin TAB* 500 MCG FEED TUBE SCH (09:00)
[2018-05-15] MEDS ORDERED: Amoxicillin/Clavulanate SUSP* 400 MG/5 ML BTL PO SCH (09:00)
[2018-05-15] MEDS: Timolol 0.5% OPTH.SOL* BTL LEFT EYE SCH (10:29)
[2018-05-15] MEDS: metFORMIN* 500 MG TAB FEED TUBE SCH (10:32)
[2018-05-15] MEDS: Amiodarone TAB* 400 MG PO SCH (10:32)
[2018-05-15] MEDS: Apixaban* 5 MG TAB PO SCH (10:32)
[2018-05-15] MEDS: Metoprolol Tartrate TAB* 25 MG PO SCH (10:32)
[2018-05-15] MEDS: Cyanocobalamin TAB* 500 MCG FEED TUBE SCH (10:32)
[2018-05-15] MEDS: Furosemide TAB* 40 MG PO SCH (10:33)
[2018-05-15] MEDS: Finasteride TAB* 5 MG PO SCH (10:33)
[2018-05-15] MEDS: Aspirin 81 mg CHEW TAB* 81 MG TAB.CHEW PO SCH (10:33)
[2018-05-15] MEDS: amLODIPine TAB* 5 MG PO SCH (10:33)
[2018-05-15] MEDS: Cholecalciferol TAB* 1000 UNITS PO SCH (10:33)
[2018-05-15] MEDS: Gabapentin CAP(*) 100 MG PO SCH ×2 (10:41→14:14)
[2018-05-15] MEDS ORDERED: Timolol 0.5% OPTH.SOL* BTL BOTH EYES SCH (11:00)
--- NOTE | 2018-05-15 15:07 | DS ---
CC: Dr. Gómez; Dr. Griffin; [facility], Dr. Stuart * DISCHARGE SUMMARY: DATE OF ADMISSION: 05/13/18 DATE OF DISCHARGE AND TRANSFER TO [facility]: 05/15/18 PRIMARY CARE PROVIDER: Dr. Gómez. DISCHARGE DIAGNOSIS: Aspiration pneumonia. SECONDARY DIAGNOSES: 1. History of paroxysmal atrial fibrillation, status post maze procedure and ablation in the past. 2. History of coronary artery disease, status post coronary artery bypass grafting 3-vessel on 04/10/18 together with a porcine aortic valve replacement. 3. History of hypertension. 4. Hyperlipidemia. 5. Diabetes, type 2. 6. Dysphagia, status post PEG tube placement in April 2018. 7. History of duodenal ulcer, diagnosed in April 2018. 8. History of benign prostatic hyperplasia. 9. History of cholecystectomy in the remote past. MEDICATIONS AT DISCHARGE: Include addition to his usual medications of Augmentin which is liquid at 800 mg via PEG b.i.d. for a total of 5 days. The remaining medications are unchanged and include: 1. Acetaminophen on a p.r.n. basis. 2. Albuterol inhaler 4 times a day p.r.n. 3. Amiodarone 400 mg daily. 4. Norvasc 5 mg daily. 5. Eliquis 5 mg b.i.d. 6. Aspirin 81 mg daily. 7. Vitamin D3 2000 units daily. 8. Vitamin B12 100 mcg daily. 9. Proscar 5 mg daily. 10. Furosemide 40 mg daily. 11. Gabapentin 100 mg b.i.d. and 200 mg at bedtime. 12. Glucotrol XL 5 mg daily. 13. Xalatan eye drops, 1 drop both eyes at bedtime. 14. Milk of magnesia 30 mL via PEG daily p.r.n. 15. Remedy Calazime Paste 4 g topical every 12 hours p.r.n. 16. Metformin 500 mg b.i.d. 17. Metoprolol tartrate 75 mg b.i.d. 18. Nitroglycerin 0.4 mg sublingual on a p.r.n. basis. 19. Crestor 5 mg at bedtime. 20. Coenzyme Q10 100 mg daily. 21. Witch griselda 1 medicated pad on a p.r.n. basis. 22. Timolol eye drops, 1 drop both eyes in the morning. 23. Protonix 40 mg via PEG tube daily. All the medications apart from the ones that are topical should be via PEG tube and not p.o. LABORATORY DATA AND STUDIES PERFORMED DURING THE HOSPITAL STAY: Included: On 05/15/18, white blood cell count 13.5, hemoglobin 10.5, hematocrit 33, and platelets 211. Sodium 142, potassium 4.3, chloride 104, carbon dioxide 33, BUN 29, creatinine 0.81. The patient's troponins throughout the hospital stay were 0.02. Brain natriuretic peptide at admission was 488. C-reactive protein at admission was 64. Portable chest x-ray, impression: "Postoperative changes are noted. There may be bibasilar atelectasis with early right lower lobe pneumonia." HOSPITALIZATION COURSE: River Wheat is a 78-year-old male, who was discharged from [facility] after he was critically ill and hospitalized from 04/28/18 to 05/10/18 for acute diastolic CHF and respiratory failure. During that time, he was treated with vasopressors for possible cardiogenic shock. As mentioned, he was able to be discharged to [facility] on 05/10/18. At that point, the feeding was introduced to be p.o. as well as via PEG. He stated that he was being fed "half and half." Over the course of couple of days of p.o. feeds, he was getting problems with cough and respiratory congestion. He presented to the hospital complaining of shortness of breath and was diagnosed with possible aspiration. His feeds were changed to be entirely via PEG tube only. The patient was placed initially on Zosyn and then started on Augmentin via PEG. He did well over the couple of days in his hospital stay respiratory biswas and did not require oxygen. He is going to be discharged back to [facility] on Augmentin for another 5 days to finish a total of 7 days' treatment of antibiotic for aspiration pneumonia. The patient has sacral decubitus, stage II, which is rather small. He is recommended to be repositioned frequently as well as to have the wound checked on a daily basis and cover with Mepilex. Standard barrier precautions are also in place. His tube feeds are to be continued with Glucerna 1.2 kilocalories, a total of 480 mL 3 times a day, plus water flushes of 60 mL before and after every feeding. The remaining medications are unchanged from his discharge from [facility]. PHYSICAL EXAMINATION AT THE TIME OF DISCHARGE: Blood pressure of 127/48, heart rate of 64 and regular, respiratory rate 16, oxygen saturation 96% on room air, temperature 97.3. General: The patient is a very pleasant 78-year-old male, who is in no acute distress. Alert, awake, and oriented x3. HEENT: Head: Atraumatic, normocephalic. Eyes: Pupils are equal, reactive to light and accommodation. Oropharynx is clear. Mucosa moist. Neck: Supple. No JVD. No bruits bilaterally. Cardiovascular: Regular rate and rhythm. No murmur. Respiratory: Rhonchi at right lower lung. Abdomen: Soft, nontender. Bowel sounds are present in all 4 quadrants. On evaluation of the skin of his abdomen , the patient has notable post cardiothoracic surgery puncture wound from likely MÓNICA drains that are either healed or covered with eschar. There is a small ecchymotic area on the periumbilical area on the right, likely related to use of anticoagulation subcutaneously in the past. PEG tube is in place with no tenderness and no discharge noted in the area of PEG tube insertion to the abdomen. Extremities: There is trace pitting pedal edema bilaterally. There is no clubbing or cyanosis. Neuro evaluation: Speech is clear. Cranial nerves II through XII are grossly intact. Motor strength is 5/5 bilaterally. Please note that this is a short summary of the patient's hospital stay. Please refer to further medical records for details. Please accept this discharge summary as history and physical of admission to [facility]. TIME SPENT: Approximately 55 minutes was spent on the patient's discharge. [id number]/[facility] #: [id number] [facility]ITAL[facility]ine
[2018-05-15 15:52] VITALS: BP 102/46
== END 2018-05-15 15:59 | DRG 178 ==
LOC: ED 21:02 → MEDTELE 23:03 → OBSVTOIN 05-14 12:08
PROVIDERS: ADMIT Internal Medicine; ATTEND Internal Medicine
DX: J69.0 Pneumonitis due to inhalation of food and vomit (principal); I50.32 Chronic diastolic (congestive) heart failure; K64.4 Residual hemorrhoidal skin tags; I25.10 Atherosclerotic heart disease of native coronary artery without angina pectoris; E78.5 Hyperlipidemia, unspecified; I48.0 Paroxysmal atrial fibrillation; I11.0 Hypertensive heart disease with heart failure; E11.40 Type 2 diabetes mellitus with diabetic neuropathy, unspecified; K21.9 Gastro-esophageal reflux disease without esophagitis; N40.0 Benign prostatic hyperplasia without lower urinary tract symptoms; G89.29 Other chronic pain; M19.90 Unspecified osteoarthritis, unspecified site; Z66 Do not resuscitate; Z97.4 Presence of external hearing-aid; Z95.5 Presence of coronary angioplasty implant and graft; Z90.49 Acquired absence of other specified parts of digestive tract; Z82.49 Family history of ischemic heart disease and other diseases of the circulatory system; Z80.8 Family history of malignant neoplasm of other organs or systems; Z87.891 Personal history of nicotine dependence; Z79.01 Long term (current) use of anticoagulants; Z79.82 Long term (current) use of aspirin; Z79.84 Long term (current) use of oral hypoglycemic drugs; Z83.3 Family history of diabetes mellitus; Z95.1 Presence of aortocoronary bypass graft; Z95.3 Presence of xenogenic heart valve; R13.10 Dysphagia, unspecified; Z93.1 Gastrostomy status; L89.152 Pressure ulcer of sacral region, stage 2
CPT/HCPCS: 36415; 71045; 80048; 80053; 83735; 83880; 84145; 84484; 85025; 85027; 85610; 85730; 86140; 87040; 87070; 87077; 87185; 87205; 87641; 87899; 93005; 99285; A9270-GY; G0378; J1940; J2543; J2930; J3475

== ENCOUNTER 2018-06-02 19:37 | Emergency (ER) | payer MEDICARE, BC ==
--- OUTSIDE RECORDS SUMMARY | 2018-06-02 19:56 | XMS REPORT ---
:1940 External Reference #:[id number] Author Organization [facility] Address [address] [place] [address] [place] [address] Phone [phone] Care Team Providers Name Role Phone Tawanda Gómez MD Primary Care Physician Unavailable Payers Type Date Identification Numbers Payment Provider Subscriber Medicare Primary Policy Number: [id number] Medicare [employer] PayID: [id number] [address] [place] [address] Medigap Part B Policy Number: [id number] [facility] [employer] Number: [id number] [address] PayID: [id number] [place] [address] Problems Date Description Provider Status Onset: 07/10/2013 Sciatica Jerardo Anderson M.D. 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 Active food or vomitus Onset: 05/14/2018 Paroxysmal atrial fibrillation Marlene Yu M.D. Active Onset: 05/14/2018 Chronic diastolic heart failure Marlene Yu M.D. Active Onset: 05/15/2018 Gastrostomy present Marlene Yu M.D. Active Onset: 05/15/2018 Pressure ulcer of sacral region, Marlene Yu M.D. Active stage 2 Onset: 05/14/2018 Hypertensive heart disease with Marlene Yu M.D. Active heart failure Onset: 05/14/2018 Type 2 diabetes mellitus Marlene Yu M.D. Active Family History Date Family Member(s) Problem(s) Comments Father [facility] Father of [place] at age 86 Mother mother at age [...] creasote application to house. asbestosis exposure at [place] in . ETOH Use Denies alcohol use Smoking 08/14/2014 Patient is a former stopped approx smoker Recreational Drug Use Denies Drug Use Daily Caffeine Does Not Consume Caffeine Exercise Type/Frequency Does not exercise Due to leg numbness Allergies, Adverse Reactions, Alerts Date Description Reaction Status Severity Comments 07/10/2013 NKDA active Medications Medication Date Status Form Strength Qnty SIG Indications Ordering Provider Amiodarone HCL 05/29 Active Tablets 200mg 60tab 1 by mouth Jono s every day Jorge Griffin M.D. Metoprolol 02/17 Active Tablets 25mg 180ta 1 tab by Jono Succinate ER 24HR bs mouth nessa Pedro M.D. Glipizide 08/14 Active Tablets 5mg 180ta 1 by mouth Jono bs daily Jorge Griffin M.D. Metformin HCL ER Active Tablets 500mg 90tab 1 tabs by Shallish, ER 24HR s sarita Neff MD twice daily Latanoprost Active Solution 0.005% 1 drop in Unknown /0000 both eyes every at bedtime Finasteride Active Tablets 5mg 1 by mouth Unknown /0000 daily Nyamyc Powder Active as needed Unknown /0000 (topical) Istalol Active Solution 0.5% 1 gtt both Unknown /0000 eyes am Gabapentin Active Capsules 200mg 1 tab by Unknown /0000 mouth twice daily Lorazepam Active Tablets 0.5mg 1 po q hs Unknown /0000 prn Nitroglycerin Active Tablets 0.4mg 1 sl Unknown 0000 Sub q5mins x3 as needed for chest pain Proair HFA Active Aerosol 108(90Bas 2 puffs by Unknown /0000 e) mouth mcg/Act every 4 hours as needed (rare use) Eliquis Active Tablets 5mg 180ta 1 by mouth Jono / bs twice a F. day Jaun Griffin Furosemide Active Tablets 40mg 90tab 1 by mouth s every odd F. day Jaun Griffin Aspirin Adult Low Active Tablets 81mg 1 by mouth Unknown Dose /0000 DR every day Rosuvastatin Active Tablets 5mg 1 by mouth Unknown Calcium 0000 every night at bedtime Omeprazole Active Capsules 40mg 1 by mouth Unknown /0000 DR every day Inspra 05/25 Hx Tablets 25mg 90tab 1 by mouth I10 s every day F. - Mauser, 05/28.D. Inspra 06/19 Hx Tablets 25mg 30tab 1 by mouth I10 s every day F. - Mauser, 06/19.D. Hydrochlorothiazide 06/19 Hx Tablets 25mg 30tab 1/2 by Domenica S. /2014 s mouth 2 Foster, - times a N.P. Xarelto 02/17 Hx Tablets 20mg 90tab 1 by mouth s every day F. - Mauser, 05/28.D. Crestor 12/25 Hx Tablets 10mg 12tab 1/2 tab by s mouth F. - daily Mauser, 05/28.D. Metoprolol 12/12 Hx Tablets 25mg 200ta 2 po qam, Jono Succinate ER 24HR bs 1 po qpm F. - (ER 02/16) Mauser, 02/17 M.D. Crestor 09/25 Hx Tablets 5mg 30tab 1 by mouth s every day F. user, 12/25.D. Atorvastatin 09/19 Hx Tablets 10mg 1 by mouth Jono Calcium every day user, 09/24 Keflex 08/27 Hx Capsules 500mg 20cap 1 by mouth 729.5 s four times F. - day Mauser, 09/10.D. Metoprolol 08/14 Hx Tablets 25mg 240ta 2 by mouth Jono Succinate ER ER 24HR bs in the in . - the user, 12/12 morning .D. and 1 tab in the at night Lisinopril 08/14 Hx Tablets 5mg 100ta 1/2 tab by Jono bs mouth - user, 02/16.D Hydrochlorothiazide 08/14 Hx Tablets 25mg 100ta 08/14/14 Jono bs hold r, 12/11.D Atorvastatin Hx Tablets 40mg 90tab 1 by mouth Jono Calcium / s every day , 09/19.D Verapamil HCL ER Hx Caps ER 240mg 30cap 1 po qd Unknown /0000 24HR s - 05/28 Lisinopril Hx Tablets 10mg 90tab 2 po qd Shallish, /0000 s MD Tawanda - 08/14 Lumigan Hx Solution 0.01% 3vial 1 gtt left Shallish, /0000 s eye qhs MD Tawanda - 08/26 Hydrochlorothiazide Hx Tablets 25mg 90tab 1 by mouth Jono / s every day . user, 08/14.D. Aspirin Hx Tablets 81mg 1 po qd Shallish, /0000 MD Tawanda - 02/17 Multivitamins Hx Capsules 30cap 1 capsule Shallish, /0000 s daily MD Tawanda - 05/24 Hydrocodone/Acetami Hx Tablets 5-325mg 60tab 1-2 po qid Shallish , nophen /0000 s prn pain MD Tawanda - 09/10 Aleve 00 Hx Capsules 220mg 60cap 1 by mouth Unknown /0000 s twice a - day as 05/28 Nitrostat 00 Hx Tablets 0.4mg prn Unknown /0000 Sub - 05/28 Co Q-10 00 Hx Capsules 100mg 1 by mouth Unknown /0000 every day - 05/28 Multi Complete 00 Hx Capsules daily Unknown /0000 - 05/29 Clopidogrel 00 Hx Tablets 75mg 90tab 1 by mouth Jono Bisulfate /0000 s every day Jorge Griffin, 05/28 M.D. /2017 Invokana Hx Tablets 100mg 1 by mouth Unknown /0000 every day - before 02/14 Losartan Potassium Hx Tablets 25mg 1 by mouth Unknown /0000 every day - 05/28 Escitalopram Hx Tablets 10mg 1 by mouth Unknown Oxalate /0000 every day - 05/28 Vitamin B12 00 Hx Tablets 1000mcg 1 by mouth Unknown /0000 ER every day - 05/28 Vitamin D-3 Hx Capsules 2000Iu 1 by mouth Unknown /0000 every day - 05/28 Vitamin B 12 00 Hx injection Unknown /0000 q month - (Done PMD 05/2802/07/2018) Co Q 10 Hx Capsules 100mg 1 by mouth Unknown /0000 every day - 05/28 Amiodarone HCL 00 Hx Tablets 400mg 1 by mouth Unknown /0000 every day - 05/29 Vital Signs Date Vital Result Comment 05/29/2018 Height 70 inches 5'10" Weight 167.00 lb W/ Shoes Heart Rate 62 /min BP Systolic Sitting 132 mmHg Lue Reg Cuff BP Diastolic Sitting 62 mmHg Lue Reg Cuff BMI (Body Mass Index) 24.0 kg/m2 Ejection Fraction >70% ECHO 02/07/18 03/29/2018 Height 70 inches 5'10" Weight 180.00 [...] High 70 -100 1 Lipid Panel - [facility] 01/18/2018 Creatine Kinase(CK) 83 U/L 10-223 2 [...] 133.0 >60 11 Laboratory test finding 02/16/2015 Magnesium 1.9 mg/dL 1.9-2.7 12 Troponin-I (TnI) 0.01 ng/mL <0.03 13 TSH (Thyroid Stim Horm) 2.68 ?IU/mL 0.34-5.60 Laboratory test finding 02/16/2015 Lactic Acid 1.6 mmol/L 0.5-2.2 Inr/Protime 02/16/2015 Inr 0.88 0.78-1.07 Laboratory test finding 02/16/2015 Partial Thrombo Time 33.0 seconds 26.0 -36.3 PTT B-Type Natriuretic Peptide BNP 33 pg/mL 14 CBC Auto Diff 02/16/2015 White Blood Count [...] Egfr Non- 105.6 >60 Egfr 135.8 >60 15 Lipid Panel - JF 09/25/2014 Creatine Kinase 53 U/L 10-223 Comp [...] 0-2 Nucleated Red Blood Cells % 0 Laboratory test finding 08/21/2014 Troponin I 0.00 [...] Non- 96.4 >60 Egfr 124.0 >60 22 CBC Auto Diff 08/21/2014 White Blood Count [...] 0-2 Nucleated Red Blood Cells % 0.1 Order 08/21/2014 Holter Monitor <pending> 1 Drug Clerk: [id number] 2 2 WEEKS NON-FASTING W/ LOWER DOSE [...] 5 Kidney failure <15 (or dialysis) 12 [MG] affected by ICTERUS 13 Reference Range and Interpretation: TnI (ng/mL) Interpretation Less Than 0.03 ng/mL Not supportive of diagnosis of MT 0.03 - 0.50 ng/mL Indeterminate: suggest serial studies if clinically indicated. Greater than 0.5 ng/mL Consistent with diagnosis of MT 14 >100 to <200 pg/mL: likely compensated congestive heart failure (CHF) 200 to 400 pg/mL: likely moderate CHF >400 pg/mL: likely moderate to severe CHF 15 Because ethnic data is not always readily [...] 15-29 5 Kidney failure <15 (or dialysis) 16 Because ethnic data is not always [...] 0.03 ng/mL Not supportive of diagnosis of MT 0.03 - 0.50 ng/mL Indeterminate: suggest serial studies if clinically indicated. Greater than 0.5 ng/mL Consistent with diagnosis of MT 22 Because ethnic data is not always [...] dialysis) Procedures Date CPT Code Description Status 05/29/2018 98984 EKG Tracing & Interpretation Completed 03/24/2018 28249 Biopsy Skin Lesion Single Completed 02/24/2018 11581 Nerve Conduction 05-06 Studies Completed 02/24/2018 09952 Needle Electromyography Each Extremity W/Related Completed Paraspinal Areas 02/16/2018 40370 Holter Monitor Review (24 hr)dr review & interp only Completed 02/13/2018 96484 ECG Monitor/Recording W/Visual Superimposition Scanning Completed 02/07/2018 98652 ECHO Transthoracic, Real-Time 2D With Doppler And Color Completed Flow 02/07/2018 12257 ECHO Transthoracic, Real-Time 2D With Doppler And Color Completed Flow 01/18/2018 99642 EKG Tracing & Interpretation Completed 10/05/2017 81449 EKG Tracing & Interpretation Completed 08/26/2017 18608 Stress Test Supervsn W/Out I/R Completed 08/26/2017 51602 Treadmill Interp/Report Only Completed 08/16/2017 11606 ECHO Transthoracic, Real-Time 2D With Doppler And Color Completed Flow 06/03/2017 00414 EKG Tracing & Interpretation Completed 11/09/2016 02155 EKG Tracing & Interpretation Completed 06/30/2016 56502 ECHO Stress Test Incl Perf Contiuous ekg Monitoring Completed W/Phys Superv 06/11/2016 76656 ECHO Transthoracic, Real-Time 2D With Doppler And Color Completed Flow 05/25/2016 15261 EKG Tracing & Interpretation Completed 09/17/2015 68766 ECHO Stress Test Incl Perf Contiuous ekg Monitoring Completed W/Phys Superv 09/17/2015 44595 ECHO Stress Test Incl Perf Contiuous ekg Monitoring Completed W/Phys Superv 08/13/2015 28773 EKG Tracing & Interpretation Completed 06/20/2015 98219 EKG Tracing & Interpretation Completed 05/07/2015 48840 EKG Tracing & Interpretation Completed 04/09/2015 08639 EKG Tracing & Interpretation Completed 03/31/2015 22090 ECHO Transthoracic, Real-Time 2D With Doppler And Color Completed Flow 03/20/2015 39685 Holter Monitor Review (24 hr)dr review & interp only Completed 03/20/2015 76160 ECG Monitor/Recording W/Visual Superimposition Scanning Completed 03/19/2015 54213 Holter Monitor Review (24 hr)dr review & interp only Completed 03/19/2015 82477 ECG Monitor/Recording W/Visual Superimposition Scanning Completed 02/17/2015 15318 EKG Tracing & Interpretation Completed 01/28/2015 84233 ECHO Transthoracic, Real-Time 2D With Doppler And Color Completed Flow 12/12/2014 28617 EKG Tracing & Interpretation Completed 09/11/2014 08475 EKG Tracing & Interpretation Completed 08/27/2014 63955 EKG Tracing & Interpretation Completed 08/20/2014 16808 Holter Monitor Review (24 hr)dr review & interp only Completed 08/20/2014 71844 ECG Monitor/Recording W/Visual Superimposition Scanning Completed 08/20/2014 78106 EKG Tracing & Interpretation Completed 08/20/2014 20528 EKG Tracing & Interpretation Completed 08/14/2014 85447 EKG Tracing & Interpretation Completed 07/02/2014 44846 ECHO Transthoracic, Real-Time 2D With Doppler And Color Completed Flow 07/24/2010 61978 EKG, Interpretation Only Completed Encounters Type Date Location Provider CPT E/M Dx Office Visit 05/29/2018 9:20a [facility] Jono Griffin, 49509 I11.0 M.DCalderon I48.0 Z95.2 I25.10 Office Visit 05/15/2018 1:06p [facility], Marlene Yu, 94024 J69.0 Hospitalists M.D. E11.9 L89.152 Z93.1 Office Visit 05/14/2018 1:06p [facility], Marlene Cisneroshn, 70937 J69.0 Hospitalists M.D. I48.0 I50.32 E11.9 I11.0 Office Visit 05/13/2018 1:05p [facility] [address] R07.9 Hospitalists R53.83 R05 R06.02 Office Visit 03/29/2018 9:30a [facility] Domenica Hernandez, 50982 I35.0 [facility] I25.10 I73.9 R00.2 Office Visit 03/24/2018 10:50a [facility] [address] L20.84 L98.9 Office Visit 01/18/2018 8:30a [facility] Jono Griffin M.D. 40162 I35.0 I73.9 I25.10 E11.9 R07.9 R00.2 Office Visit 01/17/2018 1:30p [facility] Vassilios 06183 M54.5 Of Risk Intern MD Pasha M47.26 M48.061 Office Visit 10/05/2017 11:40a [facility] Jono Griffin M.D. 45656 R07.9 I35.0 I73.9 I25.10 E11.9 I34.2 Office Visit 08/22/2017 10:30a [facility] LEEANN Brower 78153ZHT I35.0 I73.9 I25.10 E11.9 Office Visit 08/04/2017 11:32a [facility] Ramon Dickinson, 57807 G43.109 MD I10 Office Visit 06/03/2017 2:40p [facility] Jono Griffin M.D. 65647 I10 R42 I25.10 I35.0 R07.9 I49.5 R94.31 Office Visit 12/14/2016 9:00a [facility] LEEANN Brower 73444 I10 R42 Office Visit 11/09/2016 3:20p [facility] Jono Griffin 64942 I25.10 MCalderonDCalderon I35.0 I10 R42 Office Visit 06/21/2016 10:30a [facility] LEEANN Brower 64383SZE I35.0 I25.10 I10 Office Visit 05/25/2016 3:40p [facility] Jono Griffin M.D. 53213 I35.0 E11.9 I10 I25.10 Office Visit 08/13/2015 2:00p [facility] Jono Griffin 20009 R94.31 Jaun E11.9 I10 I25.10 Office Visit 06/19/2015 10:00a [facility] LEEANN Brower 82850 I10 I73.9 M54.30 M79.606 E78.5 I25.10 Office Visit 05/07/2015 8:30a [facility] LEEANN Brower 56027 427.31 401.9 250.00 443.9 414.01 424.1 Office Visit 04/09/2015 8:40a [facility] Jono Griffin M.D. 65260 424.1 414.01 427.31 401.9 Office Visit 02/17/2015 10:40a [facility] Jono Griffin M.D. 09053 424.1 414.01 250.00 443.9 786.50 307.49 427.31 Office Visit 02/16/2015 8:11a [facility],pc Sue Leach, N.PCalderon 63149 427.31 Hospitalists 414.00 401.9 Office Visit 01/22/2015 10:30a [facility] LEEANN Brower 80209 424.1 272.4 414.01 729.5 443.9 Office Visit 12/12/2014 1:20p [facility] Jono Griffin M.D. 97837 424.1 272.4 250.00 440.8 Office Visit 09/11/2014 3:40p [facility] Jono Griffin M.D. 96950 272.4 424.1 786.50 250.00 440.8 414.01 Office Visit 08/27/2014 12:30p [facility] LEEANN Brower 11188 414.0 272.4 786.50 424.1 729.5 Office Visit 08/21/2014 1:03p [facility] [place], [address] 786.50 Assoc, Hospitalists Jaun 786.50 250.00 250.00 401.9 272.4 272.4 Office Visit 08/20/2014 9:00a [facility] Jono Griffin, 11882 786.50 MHari 401.9 786.05 424.1 Office Visit 08/14/2014 9:00a [facility] Jono Griffin M.D. 46430 401.9 785.2 786.50 724.02 250.00 785.9 780.4 Office Visit 07/10/2013 1:20p [facility] Jerardo Anderson, 51310 724.3 Of Corrie Zamorano Office Visit 10/18/2012 2:00p [facility] Jerardo Anderson, 02857 724.02 Of Corrie Zamorano 781.0 Plan of Care Future Appointment(s):07/24/2018 11:40 am - Jono Griffin M.D. at [facility]06/26/2018 3:00 pm - Domenica Hernandez NCalderonPCalderon at [facility]2017 1:30 pm - [facility] ECHO Schedule at [facility]05/29/2018 - Jono Griffin M.D.I11.0 Hypertensive heart disease with heart xoulcfbR72.0 Paroxysmal atrial grueqrsbkbezZ43.2 Presence of prosthetic heart valveNew Orders :EchocardiogramFollow up:ov Domenica 3-4 w ov KARINA 2-3 mI25.10 Athscl heart disease of [place] coronary artery w/o ang pctrsNew Therapy:Cardiac Rehab
--- NOTE | 2018-06-02 21:42 | ED ---
Skin Complaint - HPI Summary HPI Summary: Patient complains of irritation of skin around PEG tube. Denies purulent discharge. PEG tube was placed last month in [place] by Dr. Almonte. 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 Denies any other pain, symptoms, injury. - History of Current Complaint Chief Complaint: EDRashSkinAbscess Time Seen by Provider: 06/02/18 21:03 Stated Complaint: FEEDING TUBE MAY BE INFECTED Hx Obtained From: Patient Onset/Duration: Started Hours Ago Skin Exposure Onset/Duration: Hours Ago Timing: Constant Onset Severity: Mild Current Severity: Mild Pain Intensity: 3 Pain Scale Used: 0-10 Numeric Skin Location: Discrete Aggravating Symptom(s): Nothing Alleviating Symptom(s): Nothing Associated Signs & Symptoms: Negative - Additional Pertinent History Primary Care Physician: RAVIN - Allergy/Home Medications Allergies/Adverse Reactions: Allergies Allergy/AdvReac Type Severity Reaction Status Date / Time No Known Allergies Allergy Verified 06/02/18 19:46 PMH/Surg Hx/FS Hx/Imm Hx Endocrine/Hematology History: Reports: Hx Diabetes Cardiovascular History: Reports: Hx Angina, Hx Atrial Fibrillation, Hx Coronary Artery Disease - stent, Hx Hypercholesterolemia, Hx Hypertension, Hx Valvular Heart Disease Denies: Hx Pacemaker/ICD Respiratory History: Reports: Hx Pleural Effusion - current, Hx Pneumonia - current Denies: Hx Asthma, Hx Chronic Obstructive Pulmonary Disease (COPD) GI History: Reports: Hx Gastroesophageal Reflux Disease, Other GI Disorders - PEG (swallowing issues post intubations) History: Reports: Hx Benign Prostatic Hyperplasia Denies: Hx Renal Disease Musculoskeletal History: Reports: Hx Arthritis Sensory History: Reports: Hx Contacts or Glasses, Hx Hearing Aid Opthamlomology History: Reports: Hx Contacts or Glasses Neurological History: Reports: Other Neuro Impairments/Disorders - 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 2 HEART STENTS 2013 [facility]. Heart dissection, aortic valve, bypass - Immunization History Date of Tetanus Vaccine: utd Date of Influenza Vaccine: fall 2016 Infectious Disease History: No Infectious Disease History: Denies: Traveled Outside the [place] in Last 30 Days - Family History Known Family History: Positive: Cardiac Disease, Other - brain tumors - Social History Alcohol Use: None Hx Substance Use: No Substance Use Type: Reports: None Smoking Status (MU): Former Smoker Type: Cigarettes Have You Smoked in the Last Year: No Review of Systems Constitutional: Negative Eyes: Negative ENT: Negative Cardiovascular: Negative Respiratory: Negative Gastrointestinal: Negative Genitourinary: Negative Musculoskeletal: Negative Skin: Other Neurological: Negative Psychological: Normal All Other Systems Reviewed And Are Negative: Yes Physical Exam - Summary Physical Exam Summary: Skin around PEG tube opening irritated by plastic placeholder. No purulent discharge, ecchymosis, extra warmth. Peg properly in place. Triage Information Reviewed: Yes Vital Signs On Initial Exam: Initial Vitals Temp Pulse Resp BP Pulse Ox 97.4 F 72 16 136/72 100 06/02/18 19:41 06/02/18 19:41 06/02/18 19:41 06/02/18 19:41 06/02/18 19:41 Vital Signs Reviewed: Yes Appearance: Positive: Well-Appearing Skin: Positive: Warm Head/Face: Positive: Normal Head/Face Inspection Eyes: Positive: Normal Neck: Positive: Supple Respiratory/Lung Sounds: Positive: Clear to Auscultation Cardiovascular: Positive: Normal Abdomen Description: Positive: Nontender Musculoskeletal: Positive: Normal Neurological: Positive: Normal Psychiatric: Positive: Normal AVPU Assessment: Alert - Cata Coma Scale Best Eye Response: 4 - Spontaneous Best Motor Response: 6 - Obeys Commands Best Verbal Response: 5 - Oriented Coma Scale Total: 15 Diagnostics - Vital Signs Vital Signs Temp Pulse Resp BP Pulse Ox 06/02/18 19:41 97.4 F 72 16 136/72 100 - Laboratory Lab Statement: Any lab studies that have been ordered have been reviewed, and results considered in the medical decision making process. Course/Dx - Course Course Of Treatment: Patient complains of irritation of skin around PEG tube. Denies purulent discharge. PEG tube was placed last month in [place] by Dr. Almonte. 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 Denies any other pain, symptoms, injury. Physical exam:Skin around PEG tube opening irritated by plastic placeholder. No purulent discharge, ecchymosis, extra warmth. Peg properly in place. Skin around PEG tube cleaned with saline. 2 x 2 pad placed under plastic to prevent further skin irritation. Advised patient to keep area clean. Follow-up with original surgeon. - Diagnoses Provider Diagnoses: Skin irritation Discharge - Sign-Out/Discharge Documenting (check all that apply): Patient Departure - Discharge Plan Condition: Stable Disposition: HOME Patient Education Materials: Acute Wound Care (ED) Referrals: Tawanda Gómez MD [Primary Care Provider] - Additional Instructions: Keep irritated area clean and dry. Follow-up with your PEG tube surgeon. Return to the ED for any new or worsening symptoms - Billing Disposition and Condition Condition: STABLE Disposition: Home
[2018-06-02 22:01] VITALS: BP 0/0
== END 2018-06-02 22:00 | disposition home or self-care (01) ==
LOC: ED 19:37
DX: R21 Rash and other nonspecific skin eruption (principal)
CPT/HCPCS: 99281

== ENCOUNTER 2018-07-06 10:13 | Observation (INO) | payer MEDICARE, BC ==
--- NOTE | 2018-07-06 11:05 | RAD ---
HISTORY: shortness of breath COMPARISONS: June 26, 2018 VIEWS: 1: frontal AP view of the chest at 10:46 AM FINDINGS: LINES AND TUBES: None. CARDIOMEDIASTINAL SILHOUETTE: The cardiomediastinal silhouette is normal for portable technique. PLEURA: There is moderate left pleural effusion, stable. LUNG PARENCHYMA: There is confluent alveolar opacification of the left lower lung. ABDOMEN: The upper abdomen is clear. There is no subphrenic gas. BONES AND SOFT TISSUES: The patient is status post median sternotomy. IMPRESSION: STABLE MODERATE LEFT PLEURAL EFFUSION WITH ASSOCIATED COMPRESSIVE ATELECTASIS OF THE LEFT LUNG BASE
[2018-07-06 11:23] LABS: ABS Basophils 0.1 10^3/ul (0-0.2); ABS Eosinophils 0.1 10^3/ul (0-0.6); ABS Lymphocytes 1.1 10^3/ul (1.0-4.8); ABS Monocytes 0.5 10^3/ul (0-0.8); ABS Neutrophils 6.4 10^3/ul (1.5-7.7); ABS Nucleated RBC 0 10^3/ul; Eosinophil % 1.1 % (0-6); Hematocrit 48 % (42-52); Hemoglobin 15.2 g/dl (14.0-18.0); Lymphocyte % 13.1 % (25-47); Mean Corpuscular HGB Conc 32 g/dl (31-36); Mean Corpuscular Hemoglobin 26 pg (27-31); Mean Corpuscular Volume 83 fL (80-94); Mean Platelet Volume 8.8 um3 (7.4-10.4); Nucleated Red Blood Cells % 0; Platelet Count 303 10^3/ul (150-450); Red Blood Count 5.77 10^6/ul (4.00-5.40); Red Cell Distribution Width 16 % (10.5-15); White Blood Count 8.2 10^3/ul (3.5-10.8)
[2018-07-06 11:34] LABS: EGFR Non-African American 92.6 (>60)
--- NOTE | 2018-07-06 13:08 | ED ---
Shortness of Breath - HPI Summary HPI Summary: This patient is a 78 year old M resenting to ED accompanied by his with a chief complaint of SOB since 1 week ago. The patient rates the pain 3/10 in severity. Symptoms aggravated by lying down. Symptoms alleviated by nothing. Patient reports productive cough and insomnia secondary to the cough. The [place] [facility] [place] he had a thoracentesis done with Dr. Maxwell and 2 L were drained. He also had open heart surgery (aortic valve and bypass) 2.[address] Lu. He was sent home after 5 days and then he relapsed. He also has an NG tube since April 2018 and it is scheduled to be removed next week. - History of Current Complaint Chief Complaint: EDShortnessOfBreath Time Seen by Provider: 07/06/18 12:13 Hx Obtained From: Patient Onset/Duration: Sudden Onset, Lasting Weeks - 1 week ago, Still Present Current Severity: Mild - 3/10 Aggrevating Factors: Other - lying down Alleviating Factors: Nothing Associated Signs & Symptoms: Cough (Productive) - Allergy/Home Medications Allergies/Adverse Reactions: Allergies Allergy/AdvReac Type Severity Reaction Status Date / Time No Known Allergies Allergy Verified 07/06/18 10:24 Home Medications: Home Medications Albuterol inh POWDER (NF) [Proair Respiclick] 2 puff INH Q6HR PRN 07/06/18 [ History Confirmed 07/06/18] Aspirin EC TAB* [Ecotrin EC Low Dose 81 MG*] 81 mg PO DAILY 07/06/18 [History Confirmed 07/06/18] Gabapentin CAP(*) [Neurontin 100 mg CAP(*)] 200 mg PO BID 07/06/18 [History Confirmed 07/06/18] Lactose-Reduced Food [Boost] 118.5 ml PO DAILY 07/06/18 [History Confirmed 07/06] Metoprolol Succinate XL TAB* [Toprol XL TAB*] 25 mg PO BID 07/06/18 [History Confirmed 07/06/18] Nitroglycerin TAB 0.4 MG* 0.4 mg SL Q5M PRN 07/06/18 [History Confirmed 07/06/18 ] Omeprazole CAP* [Prilosec CAP* 20 MG] 40 mg PO DAILY 07/06/18 [History Confirmed 07/06/18] PMH/Surg Hx/FS Hx/Imm Hx Endocrine/Hematology History: Reports: Hx Diabetes Cardiovascular History: Reports: Hx Angina, Hx Atrial Fibrillation, Hx Coronary Artery Disease - stent, Hx Hypercholesterolemia, Hx Hypertension, Hx Valvular Heart Disease, Other Cardiovascular Problems/Disorders - OPEN HEART SURGERY Denies: Hx Congestive Heart Failure, Hx Pacemaker/ICD Respiratory History: Reports: Hx Pleural Effusion - current, Hx Pneumonia - current, Other Respiratory Problems/Disorders - PNUEMONIA RECENTLY Denies: Hx Asthma, Hx Chronic Obstructive Pulmonary Disease (COPD) GI History: Reports: Hx Gastroesophageal Reflux Disease, Other GI Disorders - PEG (swallowing issues post intubations) History: Reports: Hx Benign Prostatic Hyperplasia Denies: Hx Renal Disease Musculoskeletal History: Reports: Hx Arthritis Sensory History: Reports: Hx Contacts or Glasses, Hx Hearing Aid Opthamlomology History: Reports: Hx Contacts or Glasses Neurological History: Reports: Other Neuro Impairments/Disorders - 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 2 HEART STENTS 2013 [facility]. Heart dissection, aortic valve, bypass - Immunization History Date of Tetanus Vaccine: utd Date of Influenza Vaccine: fall 2016 Infectious Disease History: No Infectious Disease History: Denies: Traveled Outside the [place] in Last 30 Days - Family History Known Family History: Positive: Cardiac Disease, Other - brain tumors - Social History Alcohol Use: None Hx Substance Use: No Substance Use Type: Reports: None Hx Tobacco Use: No Smoking Status (MU): Former Smoker Type: Cigarettes Have You Smoked in the Last Year: No Review of Systems Negative: Fever, Chills Negative: Erythema Negative: Sore Throat Negative: Chest Pain Positive: Shortness Of Breath, Cough - productive Negative: Abdominal Pain, Vomiting, Nausea Negative: dysuria, hematuria Negative: Myalgia, Edema Negative: Rash Neurological: Other - insomnia secondary to cough; denies dizziness All Other Systems Reviewed And Are Negative: Yes Physical Exam - Summary Physical Exam Summary: Constitutional: Well-developed, Well-nourished, Alert. (-) Distressed Skin: Warm, Dry HENT: Normocephalic; Atraumatic Eyes: Conjunctiva normal Neck: Musculoskeletal ROM normal neck. (-) JVD, (-) Stridor, (-) Tracheal deviation Cardio: Rhythm regular, rate normal, Heart sounds normal; Intact distal pulses; The pedal pulses are 2+ and symmetric. Radial pulses are 2+ and symmetric. (-) Murmur Pulmonary/Chest wall: (-) Respiratory distress, (-) Wheezes, (-) Rales. Significant diminished breath sounds on the left. Abd: Soft, (-) epigastric tenderness, (-) Distension, (-) Guarding, (-) Rebound Musculoskeletal: (-) Edema Lymph: (-) Cervical adenopathy Neuro: Alert, Oriented x3 Psych: Mood and affect Normal Triage Information Reviewed: Yes Vital Signs On Initial Exam: Initial Vitals Temp Pulse Resp BP Pulse Ox 98.1 F 65 18 135/52 97 07/06/18 10:19 07/06/18 10:19 07/06/18 10:19 07/06/18 10:19 07/06/18 10:19 Vital Signs Reviewed: Yes Diagnostics - Vital Signs Vital Signs Temp Pulse Resp BP Pulse Ox 07/06/18 10:19 98.1 F 65 18 135/52 97 - Laboratory Lab Results: Lab Results 07/06/18 07/06/18 Range/Units 11:07 11:07 WBC 8.2 (3.5-10.8) 10^3/ul RBC 5.77 H (4.00-5.40) 10^6/ul Hgb 15.2 (14.0-18.0) g/dl Hct 48 (42-52) % MCV 83 (80-94) fL MCH 26 L (27-31) pg MCHC 32 (31-36) g/dl RDW 16 H (10.5-15) % Plt Count 303 (150-450) 10^3/ul MPV 8.8 (7.4-10.4) um3 Neut % (Auto) 78.8 (38-83) % Lymph % (Auto) 13.1 L (25-47) % Hardee % (Auto) 6.0 (0-7) % Eos % (Auto) 1.1 (0-6) % Baso % (Auto) 1.0 (0-2) % Absolute Neuts (auto) 6.4 (1.5-7.7) 10^3/ul Absolute Lymphs (auto) 1.1 (1.0-4.8) 10^3/ul Absolute Monos (auto) 0.5 (0-0.8) 10^3/ul Absolute Eos (auto) 0.1 (0-0.6) 10^3/ul Absolute Basos (auto) 0.1 (0-0.2) 10^3/ul Absolute Nucleated RBC 0 10^3/ul Nucleated RBC % 0 Sodium 139 (135-145) mmol/L Potassium 4.2 (3.5-5.0) mmol/L Chloride 100 L (101-111) mmol/L Carbon Dioxide 31 (22-32) mmol/L Anion Gap 8 (2-11) mmol/L BUN 20 (6-24) mg/dL Creatinine 0.81 (0.67-1.17) mg/dL Est GFR ( Amer) 112.1 (>60) Est GFR (Non-Af Amer) 92.6 (>60) BUN/Creatinine Ratio 24.7 H (8-20) Glucose 186 H (70-100) mg/dL Calcium 9.6 (8.6-10.3) mg/dL Total Bilirubin 1.70 H (0.2-1.0) mg/dL AST 16 (13-39) U/L ALT 14 (7-52) U/L Alkaline Phosphatase 69 (34-104) U/L Total Protein 7.5 (6.4-8.9) g/dL Albumin 3.9 (3.2-5.2) g/dL Globulin 3.6 (2-4) g/dL Albumin/Globulin Ratio 1.1 (1-3) Result Diagrams: 07/07/18 07:16 07/07/18 07:16 Lab Statement: Any lab studies that have been ordered have been reviewed, and results considered in the medical decision making process. - Radiology CXR Radiology Interpretation Completed By: Radiologist - STABLE MODERATE LEFT PLEURAL EFFUSION WITH ASSOCIATED COMPRESSIVE ATELECTASIS OF THE LEFT LUNG BASE. Dr. Rothman has reviewed this radiology report. - EKG 1025 Cardiac Rate: NL - 64 BPM EKG Rhythm: Sinus Rhythm Summary of EKG Findings: T-wave flat in lateral leads, no STEMI Re-Evaluation - Re-Evaluation First Eval Re-Evaluation Time: 15:33 Comment: Patient changed his mind about leaving AMA. Course/Dx - Course Assessment/Plan: This patient is a 78 year old M resenting to ED accompanied by his with a chief complaint of SOB since 1 week ago. CXR reveals STABLE MODERATE LEFT PLEURAL EFFUSION WITH ASSOCIATED COMPRESSIVE ATELECTASIS OF THE LEFT LUNG BASE. EKG done at 1025 reveals NSR at 64 BPM, T-wave flat in the lateral leads and no STEMI. The patient will be signing out AMA with dx of recurrent pleural effusion. Consulted Dr. Griffin at 1516 who will facilitate the situation because the patient wishes to leave the ED AMA. Dr. Griffin will facilitate for the patient to see Dr. Hurtado for a potential placement of a pleurx catheter and subsequently to surgery for pleurodesis. Dr. Griffin came to the ED to see the patient at [address] Hurtado's office will be open tomorrow for the patient to see him. Upon re-eval at 1533, the patient changed his mind and will not be signing out AMA. Consulted Dr. Ascencio at 1541 who accepts the patient for admission. Discussed with the patient and he understands and agrees with plan for admission. - Diagnoses Provider Diagnoses: Recurrent left pleural effusion - Physician Notifications Discussed Care of Patient With: Jono Griffin Time Discussed With Above Provider: 15:16 Instructed by Provider To: Other - Consulted Dr. Griffin at 1516 who will facilitate the situation because the patient wishes to leave the ED AMA. Dr. Griffin will facilitate for the patient to see Dr. Hurtado for a potential placement of a pleurx catheter and subsequently to surgery for pleurodesis. Consulted Dr. Ascencio at 1541 who accepts the patient for admission. Discharge - Sign-Out/Discharge Documenting (check all that apply): Patient Departure - AMA - Discharge Plan Condition: Stable Disposition: ADMITTED TO [facility] - Billing Disposition and Condition Condition: STABLE Disposition: Admitted to [facility] - Attestation Statements Document Initiated by Scribe: Yes Documenting Scribe: Franklin Moe Provider For Whom Scribe is Documenting (Include Credential): Frank Rothman MD Scribe Attestation: IFranklin, scribed for Frank Rothman MD on 07/10/18 at 1138. Scribe Documentation Reviewed: Yes Provider Attestation: The documentation as recorded by the scribe, Franklin Moe accurately reflects the service I personally performed and the decisions made by me, Frank Rothman MD
[2018-07-06] MEDS ORDERED: Furosemide TAB* 40 MG PO ONE (15:32)
[2018-07-06] MEDS ORDERED: Magnesium Hydroxide LIQ* 30 ML UDC PO PRN (17:47)
[2018-07-06] MEDS ORDERED: Acetaminophen TAB* 325 MG PO PRN (17:47)
[2018-07-06] MEDS ORDERED: Al Hydrox/Mg Hydrox/Simet LIQ* 30 ML UDC PO PRN (17:47)
[2018-07-06] MEDS ORDERED: Albuterol HFA INHALER* 8 gm MDI INH PRN (17:51)
[2018-07-06] MEDS ORDERED: Dextrose 50% Syringe 50 ML* 25 GM/50 ML SYRINGE IV PUSH PRN (17:57)
[2018-07-06] MEDS ORDERED: Atorvastatin* 10 MG TAB PO SCH (18:00)
[2018-07-06] MEDS: Metoprolol Succinate XL TAB* 25 MG PO SCH (20:01)
[2018-07-06] MEDS: Gabapentin CAP(*) 100 MG PO SCH (20:01)
[2018-07-06] MEDS: Latanoprost 0.005%* 2.5 ml BTL BOTH EYES SCH ×2 (20:14→21:19)
[2018-07-06] MEDS ORDERED: Apixaban* 5 MG TAB PO SCH (21:00)
--- NOTE | 2018-07-07 03:02 | HP ---
HISTORY AND PHYSICAL: DATE OF ADMISSION: 07/06/18 PROVIDER: Alexandria Howe NP. ATTENDING PHYSICIAN: Karina Delacruz MD * (dictated by Alexandria Howe NP). PRIMARY CARE PROVIDER: Tawanda Gómez MD. OUTPATIENT STREETS AND BUILDINGS DECORATOR: Dr. Griffin. CHIEF COMPLAINT: Shortness of breath. HISTORY OF PRESENT ILLNESS: Mr. Wheat is a 78-year-old male with a past medical history significant for coronary artery disease status post 3-vessel CABG on 04/10/18 at [facility] with severe aortic stenosis status post porcine aortic valve replacement, paroxysmal atrial fibrillation, status post maze procedure on the same day, [id number] diabetes, hypertension, hyperlipidemia. He did have some dysphagia postoperatively from his CABG, which has resolved. He did have a PEG tube placement, which he reports is being removed on 07/11/18. He also has a history of duodenal ulcers and BPH. The patient was admitted at [place] between 04/28/18 and 05/10/18 after being found to have cardiogenic shock and diastolic heart failure exacerbation with kidney injury. He is currently at home. The patient reports that he had a thoracentesis performed yesterday at [facility] where they drained 2 L, according to the report, of mily colored serous fluid. The patient reports that he was mildly hypotensive after the fluid was drained and they placed him in Trendelenburg. At that time, he reports that he was having no trouble with shortness of breath. He states that after the procedure and on the way home, he started coughing. Initially, was coughing brown secretions and then turned to yellow and then proceeded to be clear white secretions. The patient reports that throughout the night, he became progressively more short of breath and was unable to lie down to sleep. So, the patient reports that he slept in his recliner last night due to his increased shortness of breath. The shortness of breath had not subsided, so he presented to the emergency room for further evaluation. The patient denies any fever, chills. Denies any nausea, vomiting, or diarrhea. Denies any chest pain. He does report some shortness of breath with cough that is productive with clear secretions. The patient had a chest x- ray completed in the emergency room. Again, he was found to have a moderate- sized compressive pleural effusion on the left. Due to his shortness of breath , we were asked to see and evaluate the patient for admission. PAST MEDICAL HISTORY: Significant for: 1. Paroxysmal AFib, status post maze, currently on Eliquis. 2. Coronary artery disease, status post CABG, 3-vessel on 04/10/18 at [facility]. 3. Severe aortic stenosis, status post porcine aortic valve on 04/10/18 at [facility]. 4. Hypertension. 5. Hyperlipidemia. 6. Fvd-cyyqxzu-jqjylepjf diabetes. 7. Dysphagia status post PEG tube in April 2018, said to be removed on . 8. Duodenal ulcer. 9. BPH. 10. Left pleural effusion. PAST SURGICAL HISTORY: Significant for: 1. CABG, 3-vessel on 04/10/18 at [facility]. 2. Status post aortic valve replacement with porcine aortic valve on 04/10/18. 3. Cholecystectomy. 4. PEG tube placement. MEDICATIONS: Home medications include: 1. Amiodarone 200 mg p.o. daily. 2. Aspirin 81 mg p.o. daily. 3. Eliquis 5 mg p.o. b.i.d. 4. Finasteride 5 mg p.o. daily. 5. Furosemide 40 mg p.o. every other day. 6. Gabapentin 200 mg p.o. b.i.d. 7. Glipizide 5 mg p.o. daily. 8. Metoprolol 25 mg at 7 a.m. and 7 p.m. 9. Metformin 500 mg p.o. b.i.d. 10. Omeprazole 40 mg p.o. daily. 11. Latanoprost eye drops 0.005% one drop to both eyes at bedtime. 12. Timolol 0.5 to both eyes q.a.m. 13. Albuterol inhaler 2 puffs q.6 hours as needed for shortness of breath. 14. Nitroglycerin 0.4 mg sublingual q.5 minutes as needed for chest pain. 15. Vitamin D3 at 2000 units p.o. daily. 16. Vitamin B12 at 1000 mcg p.o. daily. 17. Lactose reduced Boost half a can p.o. daily. ALLERGIES TO MEDICATIONS: He has no known drug allergies. FAMILY HISTORY: Mother during open heart surgery at the age of 66. Father of a heart attack at age 83. He was also diabetic. SOCIAL HISTORY: The patient was a former smoker, quit 25 years ago, smoked for 15 years 1 to 2 packs per day. He was a heavy drinker for 30 years, quit 20 years ago. He is retired. Surrogate decision maker in the event he is unable to make his own decisions is his , Carmina Wheat. REVIEW OF SYSTEMS: The patient has no documented fever. There has been no significant weight change. There is no double double vision. No ear drainage. No rhinorrhea. No sore throat. The patient denies having any chest pain. He does report orthopnea, nocturnal dyspnea. There was no abdominal pain. No nausea, vomiting, or diarrhea. No dysuria or urinary frequency. No seizures, no loss of consciousness. No pruritus, no skin ulcerations. The patient does report some shortness of breath with productive clear secretion, cough. A review of 14 systems was completed and all others are negative. PHYSICAL EXAMINATION GENERAL: At this time, Mr. Wheat is a 78-year-old male who appears mildly short of breath sitting on the edge of the stretcher in the emergency room. VITAL SIGNS: Blood pressure is 150/77, heart rate is 63, respirations 14, O2 saturation on room air is 94%, temperature was 98.1. HEENT: Head is atraumatic, normocephalic. Eyes: EOMs are intact. Sclerae anicteric and not pale. Oral mucosa appeared to be moist. NECK: Supple. LUNGS: Clear to auscultation, very diminished in the left base with a few crackles on the right base. No wheezes. CARDIAC: S1, S2. Regular rate and rhythm. There are no murmurs, rubs, or gallops. ABDOMEN: Soft and nontender. Bowel sounds are present x4. EXTREMITIES: He is able to move all 4 extremities with 5/5 strength. Radial pulses are +2 bilaterally. He does have +1 pitting edema to bilateral lower extremities. NEUROLOGIC: He is awake, alert, oriented x3. His tongue is midline. Speech is clear. There are no gross focal deficits. SKIN: Intact. DIAGNOSTIC STUDIES/LAB DATA: WBCs were 8.2, RBCs 5.77, hemoglobin 15.2, hematocrit was 48, platelet count was 303. D-dimer is 274. Sodium 139, potassium 4.2, chloride was 100, carbon dioxide was 31, anion gap was 8, BUN was 20, creatinine 0.81, glucose was 186. Calcium 9.6. Total bilirubin was 1.70. ASTs were 15, ALTs were 14, alkaline phosphatase was 69. BNP was 140. EKG showed sinus rhythm at a rate of [address]-T wave changes. Chest x-ray , radiologist's impression: Stable moderate left pleural effusion with associated compressive atelectasis of the left lung base. ASSESSMENT AND PLAN: Mr. Wheat is a 78-year-old male patient who presented to the emergency room today with complaints of increased shortness of breath. We were asked to see and evaluate due to a moderate-sized left pleural effusion, status post thoracentesis 1 day prior to admission. He will be admitted under observation for: 1. Shortness of breath. I suspect this is probably related to diastolic congestive heart failure as he has had congestive heart failure in the past and after his CABG. He has had a moderate-sized left pleural effusion since the beginning of June that has been stable. He did have a thoracentesis where they drained 2 L of pleural fluid yesterday. The patient did initially report feeling better after the thoracentesis and then by evening his shortness of breath had returned. At this time, we will continue his Lasix 40 mg p.o. daily. I will consult Dr. Hurtado from Pulmonology for further recommendations on management of his compressive left pleural effusion. We will place him on telemetry and routinely check his oxygen. 2. History of coronary artery disease, status post CABG, 3-vessel disease, bypass on 04/10/18. We will continue on metoprolol, his statin, aspirin, furosemide, amiodarone. 3. Hypertension. We will continue on metoprolol and amiodarone. 4. Paroxysmal atrial fibrillation. He will continue on Eliquis and amiodarone. 5. Diabetes. I will place him on lispro sliding scale with Accu-Cheks a.c. 6. History of duodenal ulcer. He will continue on omeprazole 40 mg p.o. daily. 7. FEN. He will be placed on heart healthy, no caffeine diet. 8. Code status. He is a full code. 9. DVT prophylaxis. We will continue with his Eliquis. He is highest risk, rating at #5, it is contraindicated due to his history of congestive heart failure to place SCDs at this time, so we will continue with single prophylaxis with Eliquis. 10. Disposition. The patient will be placed on inpatient observation. TIME SPENT: On this admission was approximately 60 minutes, greater than half the time was spent [id number] with the patient obtaining my history and physical, the other half of the time was spent going over my plan of care with and implementing my plan of care. I have discussed this with my attending, Dr. Karina Delacruz, she is in agreement with my plan. ALEXANDRIA HOWE, TELEVISION NEWS VIDEO EDITOR [id number]/[id number] #: [id number] ILANA
--- NOTE | 2018-07-07 06:12 | CONS ---
PULMONARY CONSULTATION REPORT: DATE OF CONSULT: 07/06/18 CONSULTATION REQUESTED BY: Alexandria Howe NP. REASON FOR CONSULT: Evaluation of pleural effusion and shortness of breath. HISTORY OF PRESENT ILLNESS: The patient is a 78-year-old male with history of paroxysmal atrial fibrillation, aortic valve replacement and CABG. The patient recently presented to his associate programmer analyst's office for evaluation of worsening shortness of breath. Further evaluation at that time revealed a large left pleural effusion with basal atelectasis. He underwent thoracentesis with removal of 2 L of pleural fluid yesterday with symptomatic relief. As soon as he was discharged home, he started having worsening shortness of breath and returned back to the emergency room for evaluation. He recently was noted to have ejection fraction 65% to 70% on echocardiogram with moderate to severely dilated left atrial cavity with grade 2 diastolic dysfunction, trace aortic regurgitation, trace mitral regurgitation, mild pulmonary hypertension. The patient had chest x-ray in the emergency room. I have personally reviewed this chest x-ray. The patient noted to have moderate amounts of left pleural effusion. The patient not in any significant distress at this time. He has been saturating in high 90s on room air. He has been on diuretics. His BNP is mildly elevated. PAST MEDICAL HISTORY: 1. Atrial fibrillation. 2. Herniated disk. 3. Hypertension. 4. Dyslipidemia. 5. Aortic stenosis. 6. Palpitation. 7. Coronary artery disease. 8. Dysphagia. 9. Coronary artery bypass grafting in April 2018. Had postop complicated course with A-Fib and rapid ventricular rate. PAST SURGICAL HISTORY: 1. Transurethral resection of prostate in 2003. 2. Aortic valve replacement in April. 3. PEG tube placement. ALLERGIES: No known drug allergies. FAMILY HISTORY: Coronary artery disease: Son had PCI at age 45. Father of [place] at age 86. Mother at age 66 during an open heart surgery. SOCIAL HISTORY: He is a former smoker, quit in . No alcohol or drug abuse. 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 Asbestos exposure 1960s. REVIEW OF SYSTEMS: All 14 systems reviewed and as per HPI. PHYSICAL EXAM: Elderly male in bed, in no apparent distress. Vital Signs: Temperature 97.4, pulse 74 beats per minute, respiratory rate 18 per minute, O2 sat 94% on room air, blood pressure 158/61. HEENT: Pupils equal, reactive to light. Mucous membranes moist. Lungs: Decreased air entry at left base. Cardiovascular: S1, S2 present, irregular. Abdomen: Soft, nontender, nondistended. Bowel sounds present. Extremities: Normal range of motion. Skin: No rash. DIAGNOSTIC STUDIES/LAB DATA: WBC count 8.2, hemoglobin 15.2, hematocrit 48, platelet count 303. Sodium 139, potassium 4.2, chloride 100, bicarb 31. BUN 20 , creatinine 0.81. BNP 140. Chest x-ray was personally reviewed - evidence of moderate left pleural effusion with basal atelectasis. IMPRESSION AND RECOMMENDATIONS: 78-year-old male with recent coronary artery bypass grafting admitted with recurrent pleural effusion and shortness of breath. Recurrent pleural effusion likely secondary to recent coronary artery bypass grafting surgery. Left-sided pleural effusion is commonly seen in the patients after CABG surgery. The patient might have improvement but might need a few thoracenteses. Certain patients have significant recurrence over a long period of time necessitating PleurX catheter placement. He just had 2 L removed yesterday, we will have him scheduled for thoracentesis tomorrow morning with Radiology. The patient is stable at this time, is not in any kind of distress. He will be admitted for close inpatient monitoring. No need for emergency thoracentesis at this time. He is also on Eliquis that needs to be held prior to the procedure. These recommendations were discussed in detail with the patient, his at bedside and Alexandria Howe NP. I will be away for the weekend and Radiology will be performing thoracentesis. I have provided him with my contact information so he can reach out to me if he has any recurrence next week. Thank you for allowing me to participate in the care of your patient. Will follow up with you. [id number] #: [id number] ILANA
[2018-07-07] MEDS ORDERED: Omeprazole CAP* 20 MG PO SCH (07:30)
[2018-07-07 07:38] LABS: ABS Basophils 0.1 10^3/ul (0-0.2); ABS Eosinophils 0.2 10^3/ul (0-0.6); ABS Monocytes 0.6 10^3/ul (0-0.8); ABS Nucleated RBC 0 10^3/ul; Eosinophil % 2.2 % (0-6); Hematocrit 42 % (42-52); Hemoglobin 13.4 g/dl (14.0-18.0); Lymphocyte % 14.1 % (25-47); Mean Corpuscular HGB Conc 32 g/dl (31-36); Mean Corpuscular Hemoglobin 27 pg (27-31); Mean Corpuscular Volume 82 fL (80-94); Mean Platelet Volume 8.6 um3 (7.4-10.4); Nucleated Red Blood Cells % 0.1; Platelet Count 221 10^3/ul (150-450); Red Blood Count 5.06 10^6/ul (4.00-5.40); Red Cell Distribution Width 15 % (10.5-15); White Blood Count 6.8 10^3/ul (3.5-10.8)
[2018-07-07 07:59] LABS: EGFR Non-African American 126.1 (>60)
[2018-07-07] MEDS: Gabapentin CAP(*) 100 MG PO SCH (08:35)
[2018-07-07] MEDS: Metoprolol Succinate XL TAB* 25 MG PO SCH (08:35)
[2018-07-07] MEDS: Insulin LISPRO* 1 UNITS UNIT SUBCUT SCH ×3 (08:36→13:09)
[2018-07-07] MEDS ORDERED: Cyanocobalamin TAB* 500 MCG PO SCH (09:00)
[2018-07-07] MEDS ORDERED: Aspirin EC TAB* 81 MG TAB.EC PO SCH (09:00)
[2018-07-07] MEDS ORDERED: Timolol 0.5% OPTH.SOL* BTL BOTH EYES SCH (09:00)
[2018-07-07] MEDS ORDERED: Amiodarone TAB* 400 MG PO SCH (09:00)
[2018-07-07] MEDS ORDERED: Finasteride TAB* 5 MG PO SCH (09:00)
--- NOTE | 2018-07-07 14:08 | RAD ---
Indication: Pleural effusion status post left thoracentesis. Single view of the chest demonstrates no pneumothorax after left thoracentesis. Left lower lobe atelectasis is noted. Right lung field is clear. IMPRESSION: Decreasing left pleural effusion with left lower lobe atelectasis. Patient is status post transsternal thoracotomy.
[2018-07-07 15:46] VITALS: BP 145/64
--- NOTE | 2018-07-07 17:39 | RAD ---
CPT II Codes: 6100F INDICATION: Recurrent left-sided pleural effusion COMPARISON: Recent chest x-ray. PROCEDURE NOTE AND IMAGING FINDINGS: The benefits of the and risks of procedure explained to the patient. The patient consented of the exam. The patient was brought to the ultrasound suite and multiple images of the left hemithorax were obtained. There was a large pleural effusion present. The site was marked. A formal time out was performed before beginning the procedure. The patient was prepped and draped in the usual sterile fashion. The patient?s posterior chest wall was anesthetized with 1% lidocaine. A small skin ayala was made to allow placement of the thoracentesis needle and catheter. Approximately 1 L of mily-colored fluid was aspirated. The patient tolerated the procedure without incident. IMPRESSION: Uncomplicated thoracentesis as described in the body of the report.
[2018-07-07] MEDS ORDERED: Atorvastatin* 10 MG TAB PO SCH (18:00)
--- NOTE | 2018-07-08 08:51 | DS ---
DISCHARGE SUMMARY: DATE OF ADMISSION: 07/06/18 DATE OF DISCHARGE: 07/07/18 ADMITTING PROVIDER: Alexandria Howe NP ATTENDING PHYSICIAN ON DAY OF DISCHARGE: Nikhil Chan MD PRIMARY CARE PHYSICIAN: Tawanda Gómez MD. OUTPATIENT HEAD GOLF COACH: Dr. Griffin. CONSULTING MANNEQUIN MOLDER: Dr. Hurtado. CHIEF COMPLAINT: Shortness of breath. PRINCIPAL DIAGNOSIS: Recurrent large left-sided pleural effusions in the setting of coronary artery bypass graft surgery, 04/10/18; congestive heart failure. HISTORY OF PRESENT ILLNESS AND HOSPITAL COURSE: River Wheat is a 78-year-old male with past medical history significant for CAD status post 3-vessel CABG on 04/10/18 at [facility] with severe aortic stenosis status post porcine aortic valve replacement, paroxysmal atrial fibrillation on Eliquis and status post maze procedure, lmg-aivsflq-ralfnfvqc diabetes mellitus, hypertension, hyperlipidemia, BPH, and left pleural effusion, which was followed by Domenica Hernandez NP of Cardiology who recommended outpatient thoracentesis, which was obtained on 07/05/18 with 2 L out. At that time, he was noted to be hypotensive during or after the procedure and had to be put in Trendelenburg position. He was initially not short of breath. On the way home he started to cough, some brown secretions, turned yellow and then white and then he progressively got more short of breath and was orthopneic, though of note, he was orthopneic before the procedure as well. He presented to the emergency room for these worsening symptoms. He was admitted to the hospitalist service for potential repeat thoracentesis and Dr. Hurtado evaluated the patient who arranged for Dr. Dwight Maxwell of Interventional Radiology to perform this procedure. He had additional 1 L taken off. He had chest x-rays just before and after. He did have a persistent though reduced size of the pleural effusion on the left side. He had a Gram stain showing 4+ neutrophils, no organisms seen. Culture is pending along with the standouts of LDH, glucose, total protein and pH. Notably, his LDH from serum was 236 on the day of admission. His BNP was 140. He attested that his diuretics had been increased from 40 mg every other day to daily by Dr. Gómez, but they noted that he did not have any improved reduction in his lower extremity swelling, therefore, he went back to the every other day dosing, though did notably get more orthopneic and did have significant swelling. His diuretics are being changed to torsemide , probably because the insurance company coverage has notably been difficult to get changes in dosing or frequency of similar medications. Notably, his new torsemide will be 40 mg in the morning and 20 mg at night. He was encouraged to follow up with Dr. Hurtado and Dr. Griffin as soon as possible along with Dr. Gómez. DISCHARGE MEDICATIONS: Included: 1. Albuterol 2 puffs inhaled q.6 hours p.r.n. 2. Amiodarone 200 mg p.o. q.a.m. 3. Apixaban 5 mg p.o. b.i.d. 4. Aspirin 81 mg daily. 5. Cholecalciferol 2000 units p.o. daily. 6. Cyanocobalamin 1000 mcg p.o. daily. 7. Proscar 5 mg p.o. daily. 8. Gabapentin 200 mg p.o. b.i.d. 9. Glipizide 5 mg p.o. daily. 10. Boost daily. 11. Xalatan 1 drop both eyes at bedtime. 12. Metformin 500 mg p.o. b.i.d. 13. Metoprolol succinate 25 mg p.o. b.i.d. 14. Nitroglycerin 0.4 mg sublingual q.5 minutes p.r.n. 15. Omeprazole 40 mg p.o. daily. 16. Crestor 5 mg p.o. q.p.m. 17. Timolol 0.5% both eyes q.a.m. 18. Torsemide 20 mg tabs, to be given 40 mg in the morning and 20 mg in the mid afternoon. DIET: Consistent heart healthy. FOLLOWUP: Please follow up with Dr. Hurtado's office on Tuesday along with Dr. Griffin within [address] Gómez within 1 week. TIME SPENT: Time spent on discharge, 35 minutes. [id number]/[facility] #: [id number] MTDD
[2018-07-08] MEDS ORDERED: Furosemide TAB* 40 MG PO SCH (09:00)
== END 2018-07-07 16:13 | disposition home or self-care (01) ==
LOC: ED 10:13 → MEDTELE 17:47
PROVIDERS: ADMIT Internal Medicine; ATTEND Internal Medicine
DX: J90 Pleural effusion, not elsewhere classified (principal); Z95.5 Presence of coronary angioplasty implant and graft; I50.9 Heart failure, unspecified; Z79.82 Long term (current) use of aspirin; I48.0 Paroxysmal atrial fibrillation; I25.10 Atherosclerotic heart disease of native coronary artery without angina pectoris; I10 Essential (primary) hypertension; E78.5 Hyperlipidemia, unspecified
CPT/HCPCS: 32555; 36415; 71045; 80048; 80053; 82945; 83615; 83880; 83986; 84157; 85025; 85379; 87040; 87205; 88112; 93005; 99285; A9270-GY; G0378

== ENCOUNTER 2019-04-12 06:20 | Day surgery (SDC) | payer MEDICARE, BC ==
[~2019-04-12 06:20] MED LIST: Buffered Lidocaine 1% SYRIN* 1 ML/SYRINGE INTRADERM ONE; Famotidine IV* 10 MG/ML 2 ML (20 mg) IV ONE; Lactated Ringers 1000 ML Bag* 1,000 ML IV SCH
[2019-04-12] MEDS ORDERED: BSS OPTH.SOL* BTL ONE (06:53)
[2019-04-12] MEDS ORDERED: Bupivacaine 0.25% SDV PF* 10 ML VIAL INJ ONE (06:54)
[2019-04-12] MEDS ORDERED: Artificial Tear OPHTH.OINT* 3.5 GM ONE (06:54)
[2019-04-12] MEDS ORDERED: ceFAZolin 2 GM in NS PREMIX(*) 2 GM/100 ML BAG IVPB ONE (06:54)
[2019-04-12] MEDS ORDERED: Famotidine IV* 10 MG/ML 2 ML (20 mg) ONE (06:54)
[2019-04-12] MEDS ORDERED: Buffered Lidocaine 1% SYRIN* 1 ML/SYRINGE INTRADERM ONE (06:54)
[2019-04-12] MEDS ORDERED: Mineral Oil Sterile, TOPICAL* 25 ML BTL ONE (06:54)
[2019-04-12] MEDS ORDERED: Lidocaine 1% w EPI 1:100,000* MDV 20 ML VIAL ONE (06:54)
[2019-04-12] MEDS ORDERED: Dexamethasone IV* 4 MG/ML 1 ML (4 MG) ONE (07:49)
[2019-04-12] MEDS ORDERED: Propofol* 10 MG/ML 20 ML BTL ONE (07:49)
[2019-04-12] MEDS ORDERED: fentaNYL* 50 MCG/ML 2 ML VIAL (100 MCG VIAL) ONE (07:49)
[2019-04-12] MEDS ORDERED: Midazolam* 1 MG/ML 5 ML VIAL (5 MG) ONE (07:49)
[2019-04-12] MEDS ORDERED: KETAMINE HCL* 50 MG/ML 10 ML VIAL ONE (07:49)
[2019-04-12] MEDS ORDERED: Ondansetron INJ* 2 MG/ML VIAL ONE (07:49)
[2019-04-12] MEDS ORDERED: Lidocaine 2% PF * 5 ML VIAL ONE (07:49)
[2019-04-12] MEDS ORDERED: Naloxone* 0.4 MG/ML 1 ML VIAL IV PRN (08:36)
[2019-04-12] MEDS ORDERED: fentaNYL* 50 MCG/ML 2 ML VIAL (100 MCG VIAL) IV PRN (08:36)
[2019-04-12] MEDS ORDERED: Ondansetron INJ* 2 MG/ML VIAL IV PRN (08:36)
[2019-04-12 13:20] VITALS: BP 170/71
== END 2019-04-12 11:53 | disposition home or self-care (01) ==
LOC: OR 06:20
PROVIDERS: ATTEND Plastic Surgery
DX: C44.319 Basal cell carcinoma of skin of other parts of face (principal); I50.9 Heart failure, unspecified; E11.9 Type 2 diabetes mellitus without complications; I35.0 Nonrheumatic aortic (valve) stenosis; I25.10 Atherosclerotic heart disease of native coronary artery without angina pectoris; I48.0 Paroxysmal atrial fibrillation; E78.00 Pure hypercholesterolemia, unspecified; M54.5 Low back pain; Z87.891 Personal history of nicotine dependence
CPT/HCPCS: 88305; 88331; 88332; A9270-GY; J0690; J1100; J2250; J2405; J2704; J3010; J3490

== ENCOUNTER 2019-05-15 21:05 | Emergency (ER) | payer MEDICARE, BC ==
--- OUTSIDE RECORDS SUMMARY | 2019-05-15 21:23 | XMS REPORT | Continuity of Care Document ---
:1940 External Reference #:[id number] Author Name Robert Gómez M.D. Address [address] [place] [address] Care Team Providers Name Role Phone Robert Gómez MD - Family Medicine Care Team Information Lineman Apprentice [phone] Saida Pak MD - Care Team Information Lineman Apprentice [phone] Neurological Surgery Ramon Miranda MD - Surgery Care Team Information Lineman Apprentice [phone] Gladys Hurtado - Pulmonary Disease Care Team Information Lineman Apprentice Problems Active Problems Provider Date Type 2 diabetes mellitus Robert Gómez M.D. Onset: 12/21/2007 Benign essential hypertension Robert Gómze M.D. Onset: 12/21/2007 Hyperlipidemia Robert Gómez M.D. Onset: 12/21/2007 Benign prostatic hypertrophy without outflow Robert Gómez M.D. Onset: obstruction History of polyp of colon Robert Gómez M.D. Onset: 07/19/2013 Coronary arteriosclerosis Robert Gómez M.D. Onset: 12/05/2014 Aortic valve disorder Robert Gómez M.D. Onset: 12/05/2014 Paroxysmal atrial fibrillation Robert Gómez M.D. Onset: 09/11/2015 Peripheral vascular disease Robert Gómez M.D. Onset: 09/11/2015 Degenerative joint disease involving Robert Gómez M.D. Onset: 10/07/2016 multiple joints Lumbosacral stenosis Robetr Gómez M.D. Onset: 01/19/2018 Social History Type Date Description Comments Sex Unknown Smokeless Tobacco Former Smokeless Tobacco User, Used Occasionally ETOH Use Rare Allergies, Adverse Reactions, Alerts Description No Known Drug Allergies Medications Active Medications SIG Qnty Indications Ordering Date Provider Nystatin apply 2-3 times 1units Robert FCalderon daily Jaun Gómez 9 [id number] Powder Trulicity administer half a 6ml Robert Calderon milliliters Jaun Gómez 9 0.75mg/0.5ML subcutaneously Solution Pen-Inject weekly for type 2 diabetes Cortisporin-TC 3-4 drops four times 10ml Robert F. a day as needed Jaun Gómez 9 3.3-3-10-0.5mg/ml Suspension Losartan Potassium 1 by mouth every day ta Robert F. Jaun Gómez 9 25mg Tablets Levothyroxine 1 by mouth every day ta Robert F. Sodium Jaun Gómez 9 25mcg Tablets Gabapentin 1 po bid 180caps Robert F. 300mg Jaun Gómez 9 Capsules Vitamin D3 1 by mouth every day cap Robert F. 2000mcg Jaun Gómez 8 Capsules Metoprolol 1 by twice a day tail F. Succinate ER Jaun Gómez 8 25mg Tablets ER 24HR Proair HFA inhale 2 puffs by 25.5units Brooke Rivera mouth every 4 hours ROBB Chaudhry 8 108(90Base) mcg/Act Aerosol Omeprazole 1 by mouth every day cap Robert F. 40mg Jaun Gómez [address] Royce Garcia test twice daily dx 300units Kaylie Misc e11.9 last office LYNNE Hicks 8 visit 01/19/18 Nitrostat 1 sl as needed, 25tabs Robert F. 0.4mg repeat every 5 Jaun Gómez 6 Tablets Sub minutes up to three tabs, call 911 Royce Contour Blood royce contour next - 200units Diandra Carvajal Glucose Test Strips test blood glucose ROBB Germain 4 six times a day - Strips e11.9 - last seen 03/15/19 Metformin HCL ER 1 by mouth twice a 360tabs Timothy Quick day MD Monika 1 500mg Tablets ER 24HR Boost For Glucose Unknown 0 Rosuvastatin 1 by mouth every day Unknown Calcium 0 5mg Tablets Pacerone 1 tablet mon and Unknown 100mg thurs 0 Tablets Oxygen AT Night Unknown 0 Multi Vitamin Daily once a day Unknown 0 Inspra 1 by mouth every Unknown 25mg Tablets morning 0 Vitamin B-12 1 by mouth every day Unknown 0 1000mcg Tablets Aspirin 1 by mouth every day Robert FCalderon 81mg Jaun Gómez [address] Barreto take one tablet by Robert FCalderon 5mg Tablets mouth twice a day Jaun Gómez 0 Istalol one drop both eyes Robert FCalderon 0.5% every am. per dr. Rico M.D. 0 Solution stockwin Finasteride 1 by mouth qd Unknown 5mg 0 Tablets Latanoprost instill 1 drop in Robert F. 0.005% left eye at bedtime Jaun Gómez 0 Solution History Medications Januvia 1 by mouth every 30tabs Robert Gómez, 03/15/2019 - 50mg Tablets day M.D. 03/15/2019 Januvia 1 by mouth every 90tabs Robert Gómez, 03/15/2019 - 25mg Tablets day M.D. 03/27/2019 Voltaren apply 2 grams to 100gm Robert Gómez, 03/15/2019 - 1% Gel painful joint two M.D. 03/27/2019 to three times daily as needed Amoxicillin 1 by mouth three 24caps Timothy Olmos, 12/27/2018 - 500mg times a day x 8 M.D. 01/27/2019 Capsules days Medications Administered in Office Medication SIG Qnty Indications Ordering Provider Date B-12 Injection Robert Gómez M.D. 02/21/2018 Injection Injection Subcutaneous Or Robert Gómez M.D. 02/21/2018 Intramuscular Injection B-12 Injection Robert Gómez M.D. 02/07/2018 Injection Injection Subcutaneous Or Robert Gómez M.D. 02/07/2018 Intramuscular Injection H1N1 MDCR vaccine any route Timothy Olmos M.D. 08/19/2009 Injection Immunizations CPT Code Status Date Vaccine Lot # [id number] Given 06/01/2018 High-Dose, Influenza Virus Vacccine-fluzone 65 and [id number] older 40216 Given 05/16/2017 High-Dose, Influenza Virus Vacccine-fluzone 65 and [id number] older 94892 Given 06/09/2016 High-Dose, Influenza Virus Vacccine-fluzone 65 and [id number] older 15094 Given 06/18/2015 Influenza Vac, Quadrivalent, Slit Virus, Im [id number] 52994 Given 04/19/2015 Pneumococcal Conjugate Vacc-13 [id number] 50874 Given 04/24/2014 DO Not Use Split Influenza Virus Vaccine 43262 Given 05/14/2013 DO Not Use Split Influenza Virus Vaccine 32983 Given 04/21/2012 DO Not Use Split Influenza Virus Vaccine 72761 Given 05/20/2011 DO Not Use Split Influenza Virus Vaccine 35254 Given 05/14/2010 DO Not Use Split Influenza Virus Vaccine 56105 Given 02/25/2010 Tetanus And Diptheria Adult Preservative Free >7Yrs 70709 Given 01/02/2009 Pneumococcal Immunization [id number] 25898 Given 06/27/2008 DO Not Use Split Influenza Virus Vaccine [id number] 13783 Given 12/21/2007 Zostivax [id number] 20587 Given 06/27/2007 DO Not Use Split Influenza Virus Vaccine [id number] 32692 Given 01/26/2007 Tdap Tetanus, W Pertussis [id number] 65935 Given 07/07/2006 DO Not Use Split Influenza Virus Vaccine [id number] 26418 Given 07/02/2005 DO Not Use Split Influenza Virus Vaccine 46510 Given 07/02/2005 DO Not Use Split Influenza Virus Vaccine 65526 Given 06/06/2003 DO Not Use Split Influenza Virus Vaccine 97118 Given 06/05/2003 DO Not Use Split Influenza Virus Vaccine 11905 Given 07/05/2002 Pneumococcal Immunization 63669 Given 07/05/2002 DO Not Use Split Influenza Virus Vaccine 30606 Given 07/05/2002 DO Not Use Split Influenza Virus Vaccine For Children 6-35 Months 78969 Given 07/05/2001 Influenza Immunization 06641 Given 07/05/2001 DO Not Use Split Influenza Virus Vaccine 82997 Given 06/13/2000 DO Not Use Split Influenza Virus Vaccine Vital Signs Date Vital Result Comment 05/15/2019 2:10pm BP Systolic 178 mmHg BP Diastolic 74 mmHg Heart Rate 76 /min Body Temperature 98.6 F Respiratory Rate 20 /min Weight 198.00 lb 03/15/2019 8:48am BP Systolic 142 mmHg BP Diastolic 64 mmHg Heart Rate 74 /min Body Temperature 98.2 F Respiratory Rate 20 /min Weight 191.00 lb Results Test Date Facility Test Result H/L Range Note Laboratory test [facility] Hemoglobin A1c 7.9 % High 4.1- 5.7 finding 9 (607)- - ([facility]ma) [place] [facility] [place] 198 mg/dL High 70-100 1 finding 9 Glucose Laboratory test [facility] Surgical SEE RESULT 2 finding 9 Pathology BELOW Laboratory test [facility] [place] 170 mg/dL High 70-100 3 finding 9 Glucose Laboratory test [facility] Medicine Microalb, >200 mg/L High 0.5- 37 finding 9 (607)- - Random (Fma/CMC/CTX) CBC Auto Diff [facility] White Blood 7.8 10^3/uL Normal 3.5-10.8 9 Count Red Blood Count 4.88 10^6/uL Normal 4.18-5.48 Hemoglobin 13.0 g/dL Low 14.0-18.0 Hematocrit 40 % Low 42-52 Mean Corpuscular Volume 81 fL Normal 80-94 Mean Corpuscular Hemoglobin 27 pg Normal 27-31 Mean Corpuscular HGB Conc 33 g/dL Normal 31-36 Red Cell Distribution Width 15 % Normal 10-15 Platelet Count 259 10^3/uL Normal 150-450 Mean Platelet Volume 9.0 fL Normal 7.4-10.4 Abs Neutrophils 5.4 10^3/uL Normal 1.5-7.7 Abs Lymphocytes 1.5 10^3/uL Normal 1.0-4.8 Abs Monocytes 0.7 10^3/uL Normal 0-0.8 Abs Eosinophils 0.2 10^3/uL Normal 0-0.6 Abs Basophils 0.1 10^3/uL Normal 0-0.2 Abs Nucleated RBC 0.0 10^3/uL Granulocyte % 69.2 % Lymphocyte % 18.9 % Monocyte % 9.1 % Eosinophil % 2.0 % Basophil % 0.8 % Nucleated Red Blood Cells % 0.0 Laboratory test 02/19/2019 [facility] TSH (Thyroid Stim 5.19 mcIU/mL Normal 0.34 -5.60 4 finding Horm) Free T4 (Free Thyroxine) 0.88 ng/dL Normal 0.61-1.12 5 Comp Metabolic Panel 02/19/2019 [facility] Sodium 141 mmol/L Normal 135-145 Potassium 4.5 mmol/L Normal 3.5-5.0 Chloride 104 mmol/L Normal 101-111 Co2 Carbon Dioxide 30 mmol/L Normal 22-32 Anion Gap 7 mmol/L Normal 2-11 Glucose 176 mg/dL High 70-100 Blood Urea Nitrogen 22 mg/dL Normal 6-24 Creatinine 0.74 mg/dL Normal 0.67-1.17 BUN/Creatinine Ratio 29.7 High 8-20 Calcium 9.4 mg/dL Normal 8.6-10.3 Total Protein 6.7 g/dL Normal 6.4-8.9 Albumin 3.8 g/dL Normal 3.2-5.2 Globulin 2.9 g/dL Normal 2-4 Albumin/Globulin Ratio 1.3 Normal 1-3 Total Bilirubin 0.80 mg/dL Normal 0.2-1.0 Alkaline Phosphatase 76 U/L Normal 34-104 Alt 11 U/L Normal 7-52 Ast 13 U/L Normal 13-39 Egfr Non- 102.8 >60 Egfr 124.4 >60 6 Lipid Profile (Trig/Chol/HDL) 02/19/2019 [facility] Triglycerides 125 mg/dL 7 Cholesterol 114 mg/dL 8 HDL Cholesterol 38.1 mg/dL 9 LDL Cholesterol 51 mg/dL 10 Laboratory test 02/19/2019 [facility] Creatine 52 U/L Normal 10-223 11 finding Kinase(CK) Laboratory test 01/25/2019 [facility](fma) TSH 6.20 High 0.50-6.00 12 finding mIU/L Free T4 1.08 ng/dL 0.75-1.54 Basic Metabolic Profile 01/25/2019 [facility](fma) Sodium 139 mEq/L 134-149 Potassium 4.7 mEq/L 3.6-5.5 Chloride 100 mEq/L 94-112 Carbon Dioxide 32 mEq/L 21-32 Glucose 215 mg/dL High 70-105 13 BUN 23 mg/dL 6-26 Creatinine 0.7 mg/dL 0.6-1.4 BUN/Creat Ratio 32.9 CALC 8.0-36.0 Calcium 9.1 mg/dL 8.6-10.2 GFR Non- >60 ml/min/1.73m^ >=60 GFR >60 ml/min/1.73m^ >=60 1 Forklift Supervisor: [id number] 2 SEE RESULT BELOW Name: ESCOBAR WHEAT Shagufta : [address]: Ramon Florian MD Acct: [id number] Unit: [id number] AGE: 79 Location: OR Re04/12/19 SEX: M Status: DEP SDC SPEC: [id number] BERTHA: 04/12/19 [facility] DR: Ramon Florian MD REQ: [id number] RECD: 04/12/19 STATUS: RAKESH GARCIA DR: Yaw Gómez MD _ ORDERED: FS 1ST PER SPEC, FS ADD PER SPEC/3, LEVEL 4 FINAL DIAGNOSIS Skin, left cheek, excision: -- Scar and residual basal cell carcinoma, superficial and nodular type, micronodular pattern. -- All margins are clear. COMMENT: The previous lesion at this site ([id number]) has been completely excised. PATHOLOGY SURGICAL CONSULT Frozen section (FS)/Touch Prep (TP)/Gross Consult (GC) FS) Cheek, left, excision: a. Basal cell carcinoma superficial and nodular type. (EP) b. All margins are clear. (EP) Findings discussed with Dr. Florian on 04/12/19 at 0952. PRE-OPERATIVE DIAGNOSIS Basal cell carcinoma left cheek, suture sanders 12:00 superior margin CONTINUED ON NEXT PAGE DEPARTMENT OF PATHOLOGY, [address] [place] [address] Kevon Elliott M.D. Director COLT # [id number] RUN DATE: 04/13/19 [facility] LAB LIVE PAGE 2 Patient: ESCOBAR WHEAT [id number] (Continued) GROSS DESCRIPTION (Continued) GROSS DESCRIPTION The specimen is received fresh labeled, Excision Basal Cell Carcinoma Left Cheek Suture Sanders 12:00 Superior Margin, and consists of a 2.0 x 1.8 x 0.8 cm morocho-white ovoid skin fragment with a central 0.8 x 0.8 cm batista pink vesicular lesion. There is a suture attached to one short axis which designates the 12:00 superior margin. The specimen is inked as follows: 6:00 half blue, 12:00 half black, 3:00 tip green and 12:00 suture red; serially sectioned from 3:00 to 9:00 and submitted entirely for frozen section microscopy. The frozen section residue is submitted entirely in cassettes FSA through [facility]. Signed by and Reported on: Kaylie Deng MD 04/13/19 1028 END OF REPORT DEPARTMENT OF PATHOLOGY, [address] [place] [address] Kevon Elliott M.D. Director [facility] # [id number] 3 Forklift Supervisor: [id number] 4 FASTING Copy Result to: ROBERT GÓMEZ ([id number]) 5 FASTING Copy Result to: ROBERT GÓMEZ ([id number]) 6 Because ethnic data is not always readily [...] 15-29 5 Kidney failure <15 (or dialysis) 7 Desirable: <150 Borderline High: 150-199 High: 200-499 Very High: >500 8 Desirable: <200 Borderline High: 200-239 High: >239 9 Low: <40 Desirable: 40-60 High: >60 10 Desirable: <100 Near Optimal: 100-129 Borderline High: 130-159 High: 160-189 Very High: >189 11 FASTING Copy Result to: ROBERT GÓMEZ ([id number]) 12 RESULTS VERIFIED BY REPEAT ANALYSIS 13 NON-FASTING Procedures Date Code Description Status 03/05/2018 [id number] Diabetic Retinal Eye Exam Completed 01/26/2011 [id number] Colonoscopy Completed Medical Devices Description No Information Available Encounters Type Date Location Provider Dx Diagnosis Office Visit 03/15/2019 Main Office Robert Gómez, I48.0 Paroxysmal atrial 8:40a M.D. fibrillation M48.07 Spinal stenosis, lumbosacral region E11.9 Type 2 diabetes mellitus without complications I25.10 Athscl heart disease of [place] coronary artery w/o ang pctrs G60.8 Other hereditary and idiopathic neuropathies M15.0 Primary generalized (osteo)arthritis Office Visit 01/25/2019 3:00p Main Office Robert Gómez I48.0 Paroxysmal atrial M.D. fibrillation M48.07 Spinal stenosis, lumbosacral region E11.9 Type 2 diabetes mellitus without complications I25.10 Athscl heart disease of [place] coronary artery w/o ang pctrs I10 Essential (primary) hypertension Assessments Date Code Description Provider 05/15/2019 E11.9 Type 2 diabetes mellitus without Robert Gómez M.D. complications 05/15/2019 I25.10 Atherosclerotic heart disease of [place] Robert Gómez M.D. coronary artery with 05/15/2019 I48.0 Paroxysmal atrial fibrillation Robert Gómez M.D. 05/15/2019 I73.9 Peripheral vascular disease, unspecified Robert Gómez M.D. 05/15/2019 I10 Essential (primary) hypertension Robert Gómez M.D. 03/15/2019 I48.0 Paroxysmal atrial fibrillation Robert Gómez M.D. 03/15/2019 M48.07 Spinal stenosis, lumbosacral region Robert Gómez M.D. 03/15/2019 E11.9 Type 2 diabetes mellitus without Robert Gómez M.D. complications 03/15/2019 I25.10 Atherosclerotic heart disease of [place] Robert Gómez M.D. coronary artery with 03/15/2019 G60.8 Other hereditary and idiopathic neuropathies Robert Gómez M.D. 03/15/2019 M15.0 Primary generalized (osteo)arthritis Robert Gómze M.D. 01/25/2019 I48.0 Paroxysmal atrial fibrillation Robert Gómez M.D. 01/25/2019 E03.9 Hypothyroidism, unspecified Robert Gómez M.D. 01/25/2019 M48.07 Spinal stenosis, lumbosacral region Robert Gómez M.D. 01/25/2019 I50.32 Chronic diastolic (congestive) heart failure Roebrt Gómez M.D. 01/25/2019 E11.9 Type 2 diabetes mellitus without Robert Gómez M.D. complications 01/25/2019 I25.10 Atherosclerotic heart disease of [place] Robert Gómez M.D. coronary artery with 01/25/2019 I10 Essential (primary) hypertension Robert Gómez M.D. Plan of Treatment Future Appointment(s):07/05/2019 8:40 am - Robert Gómez M.D. at Main Ag[facility]2605/15/2019 - Robert Gómez M.D.E11.9 Type 2 diabetes mellitus without complicationsComments:Patient has routine followup with Dr. Borges's office, may need cataract qhslsenY19.10 Atherosclerotic heart disease of [place] coronary artery withComments:no angina, stable after bypass , will follow up with Dr Julien48.0 Paroxysmal atrial fibrillationComments:Patient to continue present medication of Eliquis, metoprolol, Pacerone 100 mg Tuesday and and continue followup with tbfygtmwgsH40.9 Peripheral vascular disease, unspecifiedComments:refer to Dr. Hawkins for consultation on peripheral arterial disease, may need CT [id number] Essential (primary) hypertensionComments: continue current medication, call if bp elevation is persistent above 140/90 , blood pressure is high today he will continue to monitor at home, may need increase in losartan, blood pressures taken athome have been acceptableAllNew Medication:Nystatin 140105 Unit/GM - apply 2-3 times dailyTrulicity 0.75 mg/ 0.5ML - administer half a milliliters subcutaneously weekly for type 2 diabetesCortisporin-TC 3.3-3-10-0.5 mg/ml - 3-4 drops four times a day as neededComments:Medication Management Patient Understands medications he's taking ? Yes No Are there Barriersto Adherence? Yes No Has the patient been asked about herbal supplements and therapies, and OTC meds? Yes No Functional Status Description No Information Available Mental Status Description No Information Available Referrals Refer to Reason for Referral Status Appt Date Ramon Florian left cheek carcinoma jw Closed [address] [place] [address] [phone]
--- OUTSIDE RECORDS SUMMARY | 2019-05-15 21:23 | XMS REPORT | Continuity of Care Document ---
:1940 External Reference #:[id number] Author Name Meena Brock O.D. Address [address] [place] [address] Care Team Providers Name Role Phone Tawanda Gómez M.D. - Internal Care Team Information Armature Inspector Medicine Jono Griffin MD - Cardiovascular Care Team Information Armature Inspector Disease Carlo Zamudio M.D. - Urology Care Team Information Armature Inspector [phone] Yaw Parra M.D. - Pediatric Care Team Information Armature Inspector Dermatology Ramon Florian M.D. - Surgery Care Team Information Armature Inspector Problems Active Problems Provider Date Essential hypertension Onset: Type 2 diabetes mellitus Meena Brock O.D. Onset: 03/19/2015 Note: Arthritis Onset: Large prostate Onset: Primary open angle glaucoma Meena Brock O.D. Onset: 03/19/2015 Nuclear senile cataract Meena Brock O.D. Onset: 03/19/2015 Mild / Early Stage Glaucoma Meena Brock O.D. Onset: 03/19/2015 High Risk Open Angle Glaucoma Meena Brock O.D. Onset: 03/19/2015 Combined form of senile cataract Meena Brock O.D. Onset: 09/19/2015 Pseudoexfoliation glaucoma Meena Brock O.D. Onset: 02/11/2016 Decreased hearing Onset: Migraine Onset: Atrial fibrillation Onset: Hearing loss Onset: Neuropathy Onset: Note: Feet Aortic valve stenosis Onset: Basal cell carcinoma of face Onset: Vitreous degeneration Meena Brock O.D. Onset: 10/04/2018 Long-term current use of drug therapy Meena Brock O.D. Onset: 2018 Social History Type Date Description Comments Sex Unknown ETOH Use Denies alcohol use Tobacco Use Start: Unknown Patient has never smoked Recreational Drug Use Denies Drug Use Smoking Status Reviewed: 05/09/19 Patient has never smoked Allergies, Adverse Reactions, Alerts Description No Known Drug Allergies Medications Active Medications SIG Qnty Indications Ordering Provider Date Timolol Maleate 1 drop both eyes 15ml Meena Marinelli 02/27/2019 Ophthalmic Gel Forming every day Valentin Brock 0.5% GFS Latanoprost 1 drop both eyes 7.5ml H40.11x1 Meena Marinelli 09/19/2015 0.005% every night Valentin Brock Solution Pacerone Take 1 Tablet By Unknown 100mg Tablets Mouth Every Tuesday And Every Rosuvastatin Calcium Jono Griffin, 5mg MD Tablets Losartan Potassium TK 1 T PO qd Unknown 25mg Tablets Eplerenone Take 1 Tablet By Unknown 25mg Tablets Mouth Once Daily Multi Vitamin Daily Unknown Tablets Omeprazole Unknown 40mg Capsules DR Barreto Unknown 5mg Tablets Aspirin Unknown 81mg Tablets Vitamin D3 Unknown 2000Unit Capsules Vitamin B12 Unknown 100mcg Tablets Gabapentin take 1 capsule by Unknown 100mg Capsules mouth four times a day Nitrostat Shallish, Tawanda 0.4mg Tablets M.D. Sub Verapamil HCL ER Shallish, Tawanda 240mg M.D. Tablets ER Metoprolol Succinate Unknown ER 25mg Tablets ER 24HR Metformin HCL ER Shallish, Tawnada 500mg M.D. Tablets ER 24HR Finasteride take 1 tablet by Unknown 5mg Tablets mouth once daily Glipizide ER take 1 tablet Unknown 5mg Tablets once daily ER 24HR Immunizations Description No Information Available Vital Signs Description No Information Available Results Description No Information Available Procedures Description No Information Available Medical Devices Description No Information Available Encounters Description No Information Available Assessments Date Code Description Provider 05/09/2019 H40.1131 Primary open-angle glaucoma, bilateral, Meena Brock O.D. mild stage 05/09/2019 H25.13 Age-related nuclear cataract, bilateral Meena Brock O.D. 05/09/2019 H43.813 Vitreous degeneration, bilateral Meena Brock O.D. 05/09/2019 Z79.84 [facility]PC (current) use of oral Meena Brock O.D. hypoglycemic drugs 05/09/2019 E11.9 Type 2 diabetes mellitus without Meena Brock O.D. complications Plan of Treatment 05/09/2019 - Meena Brock O.D.H40.1131 Primary open-angle glaucoma, bilateral, mild stageComments:Your glaucoma is stable at this time.Your eye pressure is within an acceptable range, and your testing does not show any Glaucoma related changes at this time. Please continue your treatment.Follow up: 6 Month Follow Up IOP Check Gonio At your next visit, we are not planning to dilate your eyes. However, if you have any changes in your vision or new symptoms, there are certain situations that require us to dilate your eyes. If Dr. Brock requests any additional testing, that may require extra time. If you have any questions before your next appointment, please call our office at [phone].H25.13 Age-related nuclear cataract, [id number] Vitreous degeneration, bilateralComments:You have a Posterior Vitreous Detachment. Please read the pamphlet that was given to you. 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 If you are a smoker, we strongly recommend that you quit.If you are not a smoker, we strongly recommend that you do not start.E11.9 Type 2 diabetes mellitus without complicationsComments:You have diabetes. I do not detect any changes in both of your retinas from diabetes at this time. Proper control of your diabetes is important for the health of your eyes. Changes in your eyes from diabetes can happen without symptoms, so it is important that you have your eyes examined. Functional Status Description No Information Available Mental Status Description No Information Available Referrals Description No Information Available
[2019-05-15] MEDS ORDERED: Ciproflox/Dexameth OTIC.SUSP* 7.5 ML BTL LEFT EAR ONE (22:29)
--- NOTE | 2019-05-15 22:29 | ED ---
Throat Pain/Nasal Congestion - HPI Summary HPI Summary: Patient complains of left ear pain intermittently over the past 3 weeks with subsequent decrease in hearing. History of hearing aids already. He CP today who prescribed meds the patient will be unable to fill for 2 days. Denies fever , cough, sore throat, CP, SOB, N/V/D, abdominal pain, change in hearing, change in BM. Medical history is DM 2, HTN, hypothyroid, angina, A. fib, CHF. Patient on Eliquis. - History of Current Complaint Chief Complaint: EDEarPain Time Seen by Provider: 05/15/19 21:55 Hx Obtained From: Patient Onset/Duration: Gradual Onset, Lasting Days Severity: Moderate Associated Signs And Symptoms: Positive: Negative Cough: None - Allergies/Home Medications Allergies/Adverse Reactions: Allergies Allergy/AdvReac Type Severity Reaction Status Date / Time No Known Allergies Allergy Verified 04/12/19 07:02 Home Medications: Home Medications Losartan TAB* [Cozaar TAB*] 25 mg PO DAILY 05/15/19 [History Confirmed 05/15/19] Multivitamin 1 tab PO DAILY 05/15/19 [History Confirmed 05/15/19] PMH/Surg Hx/FS Hx/Imm Hx Endocrine/Hematology History: Reports: Hx Diabetes - type 2, Hx Thyroid Disease - hypo Cardiovascular History: Reports: Hx Angina, Hx Atrial Fibrillation, Hx Congestive Heart Failure - after open heart surgery, Hx Coronary Artery Disease - stent, Hx Hypercholesterolemia, Hx Hypertension, Hx Valvular Heart Disease, Other Cardiovascular Problems/Disorders - OPEN HEART SURGERY 04/10/18 Denies: Hx Pacemaker/ICD Respiratory History: Reports: Hx Pleural Effusion - current, Hx Pneumonia - current, Other Respiratory Problems/Disorders - uses oxygen at night prn Denies: Hx Asthma, Hx Chronic Obstructive Pulmonary Disease (COPD) GI History: Reports: Hx Gastroesophageal Reflux Disease, Hx Jaundice - in 60's from hepatitis, Hx Ulcer - RESOLVED, Other GI Disorders - PEG (swallowing issues post intubations) History: Reports: Hx Benign Prostatic Hyperplasia, Other Problems/ Disorders - enlarged prostate- TURP 2003 Denies: Hx Renal Disease Musculoskeletal History: Reports: Hx Arthritis, Hx Bursitis Comment Only: Hx Tendonitis - possible Sensory History: Reports: Hx Cataracts, Hx Contacts or Glasses - glasses, Hx Glaucoma, Hx Hearing Aid - bilat ears Opthamlomology History: Reports: Hx Cataracts, Hx Contacts or Glasses - glasses , Hx Glaucoma Neurological History: Reports: Hx Headaches, Hx Migraine, Hx Nerve Disease - diabetic neuropathy, Other Neuro Impairments/Disorders - Tremor in arms, right worse than left- hands shake Denies: Hx CVA, Hx Transient Ischemic Attacks (TIA) Psychiatric History: Reports: Hx Anxiety Denies: Hx Panic Disorder, Hx Substance Abuse - Cancer History Hx Chemotherapy: No - Surgical History Surgery Procedure, Year, and Place: gallbladder 5-6 yrs ago [facility] [facility] [place] 2013 [facility]. Heart dissection, aortic valve, CABG and MAZE PROCEDURE 04/2018 Hx Anesthesia Reactions: Yes - HARD TIME COMING OUT OF ANESTHESIA - Immunization History Date of Tetanus Vaccine: utd Date of Influenza Vaccine: fall 2016 Infectious Disease History: No Infectious Disease History: Reports: Hx Hepatitis - very long time ago in early to mid 60's- doesn't remember type Denies: Traveled Outside the [place] in Last 30 Days - Family History Known Family History: Positive: Cardiac Disease, Other - brain tumors - Social History Alcohol Use: None Hx Substance Use: No Substance Use Type: Reports: None Hx Tobacco Use: Yes Smoking Status (MU): Former Smoker Type: Cigarettes Have You Smoked in the Last Year: No Review of Systems Constitutional: Negative Eyes: Negative Positive: Ear Ache Cardiovascular: Negative Respiratory: Negative Gastrointestinal: Negative Genitourinary: Negative Musculoskeletal: Negative Skin: Negative Neurological: Negative Psychological: Normal All Other Systems Reviewed And Are Negative: Yes Physical Exam - Summary Physical Exam Summary: Purulence in left ear canal. ENT exam otherwise unremarkable. Triage Information Reviewed: Yes Vital Signs On Initial Exam: Initial Vitals Temp Pulse Resp BP Pulse Ox 98.2 F 78 18 224/87 97 05/15/19 21:06 05/15/19 21:06 05/15/19 21:06 05/15/19 21:06 05/15/19 21:06 Vital Signs Reviewed: Yes Appearance: Positive: Well-Appearing Skin: Positive: Warm Head/Face: Positive: Normal Head/Face Inspection Eyes: Positive: Normal ENT: Positive: Normal ENT inspection Neck: Positive: Supple Respiratory/Lung Sounds: Positive: Clear to Auscultation Cardiovascular: Positive: Normal Abdomen Description: Positive: Nontender Musculoskeletal: Positive: Normal Neurological: Positive: Normal Psychiatric: Positive: Normal AVPU Assessment: Alert - Cata Coma Scale Best Eye Response: 4 - Spontaneous Best Motor Response: 6 - Obeys Commands Best Verbal Response: 5 - Oriented Coma Scale Total: 15 Diagnostics - Vital Signs Vital Signs Temp Pulse Resp BP Pulse Ox 05/15/19 21:50 74 14 184/85 97 05/15/19 21:46 74 21 195/79 97 05/15/19 21:20 80 16 220/141 98 05/15/19 21:19 78 98 05/15/19 21:06 98.2 F 78 18 224/87 97 - Laboratory Lab Statement: Any lab studies that have been ordered have been reviewed, and results considered in the medical decision making process. EENT Course/Dx - Course Course Of Treatment: Patient complains of left ear pain intermittently over the past 3 weeks with subsequent decrease in hearing. History of hearing aids already. He CP today who prescribed meds the patient will be unable to fill for 2 days. Denies fever, cough, sore throat, CP, SOB, N/V/D, abdominal pain, change in hearing, change in BM. Medical history is DM 2, HTN, hypothyroid, angina, A. fib, CHF. Patient on Eliquis. Vital signs within normal limits. Rx for Ciprodex. - Diagnoses Provider Diagnoses: Otitis externa Discharge ED - Sign-Out/Discharge Documenting (check all that apply): Patient Departure Patient Received Moderate/Deep Sedation with Procedure: No - Discharge Plan Condition: Stable Disposition: HOME Patient Education Materials: Otitis Externa (ED) Referrals: Tawanda Gómez MD [Primary Care Provider] - Additional Instructions: 4 drops of antibiotic solution in your left ear twice a day for 7 days. Follow- up with primary care. - Billing Disposition and Condition Condition: STABLE Disposition: Home
[2019-05-15 23:06] VITALS: BP 173/67
== END 2019-05-15 23:05 | disposition home or self-care (01) ==
LOC: ED 21:05
DX: H60.92 Unspecified otitis externa, left ear (principal); E11.40 Type 2 diabetes mellitus with diabetic neuropathy, unspecified; I48.91 Unspecified atrial fibrillation; Z79.01 Long term (current) use of anticoagulants; I10 Essential (primary) hypertension; Z95.1 Presence of aortocoronary bypass graft; Z95.5 Presence of coronary angioplasty implant and graft; Z87.891 Personal history of nicotine dependence; R07.89 Other chest pain
CPT/HCPCS: 99282; A9270-GY